=== PATIENT | male | born 1950 | race American Indian/Alaskan Native ===

== ENCOUNTER 2017-09-18 10:49 | Day surgery (SDC) | payer OTHER ==
[~2017-09-18] VITALS: Ht 177.8 cm; Wt 99.2 kg
[~2017-09-18 10:49] MED LIST: ALBU90OI INH; AMLO5 PO; ASPI325 PO; Aspirin EC325 MG PO; BISA10S PR; BISA5EC PO; BUDE6HFA INH; CEPH250A PO; CETI5 PO; CHOL10002 PO; CITA20 PO; CLIN300 PO; CLOBET30L TOP; CLON.5 PO; COUGHTAB200 MG PO; CREON DR 24,001 EACH; CREON DR 24,001 EACH PO; CYAN100T2; Clotrim Antifun15 GM TP; DOCU100 PO; Dandruff 1% Sh325 ML TP; EAC RC; EPIN.3I IM; ERGO50000 PO; FURO20 PO; Furosemide40 MG PO; GENPREOPSU PO; GENT.3OPSA OD; GUAI200 PO; GUAI600T33 PO; HYDMOR2 PO; Humulin N100 UNIT/1 SC; Humulin R500 UNIT/1 SC; IBUP800 PO; INSUL100I SC; Imitrex50 MG JT; KETO120T TOP; Klor-Con 1010 MEQ; LAVAP17G; LAVAP17G PO; LEVO750 PO; LISHYD2012 PO; LISI20 PO; Lantus100 UNIT/1 SC; Lisinopril2.5 MG PO; METF850 PO; METH10 PO; METO25ER PO; METO50ER PO; Metoprolol Succ25 MG PO; NAPR500 PO; Norco 10-325 T1 EACH; OMEP20ER PO; ONDA4ODT MM; OXYACE5T PO; OXYC5 PO; PRED20 PO; PRED5 PO; PROM25 PO; ROPI1 PO; ROSU10TA PO; ROXICODONE5 MG PO; SELRX180 ML TP; SENN187; SENN187 PO; SULTRISS PO; TERA5; TERA5 PO; TESTOSTERONE INJ IM; TIOT18; TIOT18 IH; TIZANIDINE HCL4 MG PO; Tylenol325 MG; Ventolin Soln3 ML; ZYRTEC10 M1 PO; Zanaflex4 M1 PO; Zanaflex4 MG PO
[2018-05-31] MEDS ORDERED: ZESTORETIC 20-121 EA (15:55)
[2018-05-31] MEDS ORDERED: PREG25 PO (15:56)
[2018-05-31] MEDS ORDERED: HYDR1TAB94 PO (16:38)
== END 2017-09-18 13:07 | disposition home or self-care (01) ==
LOC: ORSCSDS 10:49
PROVIDERS: Surgery
PROC: 0DBK8ZX Excision of Ascending Colon, Via Natural or Artificial Opening Endoscopic, Diagnostic (ICD-10-PCS; principal; 2017-09-18 11:45)
PROC: 0DB48ZX Excision of Esophagogastric Junction, Via Natural or Artificial Opening Endoscopic, Diagnostic (ICD-10-PCS; principal; 2017-09-18 11:45)
PROC: 0DB68ZX Excision of Stomach, Via Natural or Artificial Opening Endoscopic, Diagnostic (ICD-10-PCS; principal; 2017-09-18 11:45)
PROC: 0DBN8ZX Excision of Sigmoid Colon, Via Natural or Artificial Opening Endoscopic, Diagnostic (ICD-10-PCS; principal; 2017-09-18 11:45)
PROC: 0DBL8ZX Excision of Transverse Colon, Via Natural or Artificial Opening Endoscopic, Diagnostic (ICD-10-PCS; principal; 2017-09-18 11:45)
DX: K21.9 Gastro-esophageal reflux disease without esophagitis (principal); K22.70 Barrett's esophagus without dysplasia; K29.50 Unspecified chronic gastritis without bleeding; D12.2 Benign neoplasm of ascending colon; D12.3 Benign neoplasm of transverse colon; D12.5 Benign neoplasm of sigmoid colon; K64.8 Other hemorrhoids; Z86.010 Personal history of colon polyps; Z12.11 Encounter for screening for malignant neoplasm of colon; E11.9 Type 2 diabetes mellitus without complications; I10 Essential (primary) hypertension; B19.20 Unspecified viral hepatitis C without hepatic coma; I73.9 Peripheral vascular disease, unspecified; E78.1 Pure hyperglyceridemia; F17.200 Nicotine dependence, unspecified, uncomplicated; Z79.4 Long term (current) use of insulin; Z79.899 Other long term (current) drug therapy
CPT/HCPCS: 82947; 88305; 88342; J7120

== ENCOUNTER 2019-03-21 16:05 | Emergency (ER) | payer OTHER ==
[~2019-03-21] VITALS: Ht 175.3 cm; Wt 111.1 kg
[~2019-03-21 16:05] MED LIST changes: +HYDR1TAB94 PO; +PREG25 PO; +ZESTORETIC 20-121 EA
[2019-03-21 16:36] LABS: BASOPHILS ABSOLUTE AUTO 0.07 K/mm3 (0.00-0.23); BASOPHILS PERCENT AUTO 1 % (0-2); EOSINOPHILS ABSOLUTE AUTO 0.23 K/mm3 (0.00-0.68); EOSINOPHILS PERCENT AUTO 2 % (0-6); Hematocrit 35.8 % (37.0-53.0); Hemoglobin 12.3 g/dL (13.5-17.5); IMMATURE GRAN ABSOLUTE AUTO 0.05 K/mm3 (0.00-0.10); IMMATURE GRAN PERCENT AUTO 0 % (0-1); LYMPHOCYTES ABSOLUTE AUTO 1.12 K/mm3 (0.84-5.20); LYMPHOCYTES PERCENT AUTO 8 % (21-46); MONOCYTES PERCENT AUTO 6 % (4-13); Mean Corpuscular HGB 29.7 pg (26.0-34.0); Mean Corpuscular HGB Conc 34.4 g/dL (31.5-36.5); Mean Corpuscular Volume 87 fL (80-100); Mean Platelet Volume 9.2 fL (9.1-12.4); NEUTROPHILS ABSOLUTE AUTO 11.43 K/mm3 (1.96-9.15); NEUTROPHILS PERCENT AUTO 83 % (41-73); Platelet Count 267 K/mm3 (150-400); RDW Coefficient Variation 12.5 % (11.7-14.2); RDW Standard Deviation 39.3 fL (35.1-46.3); Red Blood Cell Count 4.14 M/mm3 (4.30-5.90)
[2019-03-21 17:02] LABS: Albumin, Blood 2.8 g/dL (3.4-5.0); Albumin/Globulin Ratio 0.5 (0.8-1.8); Bilirubin, Total 0.4 mg/dL (0.1-1.0); Bun/Creatinine Ratio 14.8 (12.0-20.0); Creatinine, Blood 1.62 mg/dL (0.60-1.20); Globulin, Blood 5.3 g/dL (2.2-4.0); Potassium, Blood 3.9 mmol/L (3.5-5.5); Total Protein, Blood 8.1 g/dL (6.4-8.2)
[2019-03-21 17:43] LABS: Source, Urine Clean Catch
[2019-03-21 17:47] LABS: Bilirubin, Urine Neg (Neg); Blood, Urine 3+ (Neg); Glucose Qualitative, Urine Neg (Neg); Ketones, Urine Neg (Neg); Leukocyte Esterase, Urine Neg (Neg); Nitrite, Urine Neg (Neg); Protein, Urine 4+ (Neg); Specific Gravity, Urine 1.015 (1.003-1.022); Urobilinogen, Urine NORM (Normal)
[2019-03-21 17:58] LABS: Appearance, Urine Clear (Clear); Color, Urine Yellow (P-Yellow)
[2019-03-21 17:59] LABS: Bacteria Few /hpf; Squamous Epithelial Cells Rare /hpf (Few); Transitional Epithelial Cells Few /hpf (0-Rare)
[2019-03-21] MEDS ORDERED: Lipitor20 MG PO (20:03)
[2019-03-21] MEDS ORDERED: Aspirin EC81 MG PO (20:03)
[2019-03-21] MEDS ORDERED: ALBU3IS INH (20:03)
[2019-03-21] MEDS ORDERED: CREON DR 24,001 EACH PO (20:04)
[2019-03-21] MEDS ORDERED: THERA-D2000 UNIT PO (20:04)
[2019-03-21] MEDS ORDERED: CHLO25B PO (20:04)
[2019-03-21] MEDS ORDERED: CLOP75 PO (20:04)
[2019-03-21] MEDS ORDERED: Novolog100 UNIT/2 SC (20:05)
[2019-03-21] MEDS ORDERED: OMEP20ER PO (20:06)
[2019-03-21] MEDS ORDERED: MAGNESIUM400 M1 PO (20:06)
[2019-03-21] MEDS ORDERED: ONDA4ODT SL (20:06)
[2019-03-21] MEDS ORDERED: PREG100 PO (20:07)
[2019-03-21] MEDS ORDERED: Imitrex50 MG PO (20:07)
[2019-03-21] MEDS ORDERED: Roxicodone5 MG PO (21:56)
[2019-03-21] MEDS ORDERED: CEPH500 PO (21:56)
== END 2019-03-21 22:12 | disposition home or self-care (01) ==
LOC: ER 16:05
PROVIDERS: Physician Assistant
DX: T83.593A Infection and inflammatory reaction due to other urinary stents, initial encounter (principal); R10.31 Right lower quadrant pain; N50.811 Right testicular pain; R30.0 Dysuria; R33.9 Retention of urine, unspecified; Z88.0 Allergy status to penicillin; Z91.030 Bee allergy status; Z88.8 Allergy status to other drugs, medicaments and biological substances; Z79.899 Other long term (current) drug therapy; Z79.4 Long term (current) use of insulin; E11.40 Type 2 diabetes mellitus with diabetic neuropathy, unspecified; J44.9 Chronic obstructive pulmonary disease, unspecified; F17.210 Nicotine dependence, cigarettes, uncomplicated
CPT/HCPCS: 36415; 74176; 76870; 80053; 81001; 85025; 93926; 93971; 96361; 96374; 96375; 99284-25; A9270; J1170; J2405; J7030

== ENCOUNTER 2019-03-26 09:57 | Inpatient (IN) | payer OTHER ==
[~2019-03-26] VITALS: Ht 177.8 cm; Wt 109.5 kg
[~2019-03-26 09:57] MED LIST changes: +ALBU3IS INH; +Aspirin EC81 MG PO; +CEPH500 PO; +CHLO25B PO; +CLOP75 PO; +Imitrex50 MG PO; +Lipitor20 MG PO; +MAGNESIUM400 M1 PO; +Novolog100 UNIT/2 SC; +ONDA4ODT SL; +PREG100 PO; +Roxicodone5 MG PO; +THERA-D2000 UNIT PO
[2019-03-26 10:19] LABS: BASOPHILS ABSOLUTE AUTO 0.06 K/mm3 (0.00-0.23); BASOPHILS PERCENT AUTO 0 % (0-2); EOSINOPHILS ABSOLUTE AUTO 0.19 K/mm3 (0.00-0.68); EOSINOPHILS PERCENT AUTO 1 % (0-6); Hematocrit 32.3 % (37.0-53.0); Hemoglobin 11.1 g/dL (13.5-17.5); IMMATURE GRAN ABSOLUTE AUTO 0.07 K/mm3 (0.00-0.10); IMMATURE GRAN PERCENT AUTO 0 % (0-1); LYMPHOCYTES ABSOLUTE AUTO 0.71 K/mm3 (0.84-5.20); LYMPHOCYTES PERCENT AUTO 4 % (21-46); MONOCYTES ABSOLUTE AUTO 0.74 K/mm3 (0.16-1.47); MONOCYTES PERCENT AUTO 5 % (4-13); Mean Corpuscular HGB 29.5 pg (26.0-34.0); Mean Corpuscular HGB Conc 34.4 g/dL (31.5-36.5); Mean Corpuscular Volume 86 fL (80-100); Mean Platelet Volume 9.3 fL (9.1-12.4); NEUTROPHILS ABSOLUTE AUTO 14.67 K/mm3 (1.96-9.15); NEUTROPHILS PERCENT AUTO 89 % (41-73); Platelet Count 250 K/mm3 (150-400); RDW Coefficient Variation 12.4 % (11.7-14.2); RDW Standard Deviation 38.6 fL (35.1-46.3); Red Blood Cell Count 3.76 M/mm3 (4.30-5.90); White Blood Cell Count 16.44 K/mm3 (4.00-11.30)
[2019-03-26 10:39] LABS: Albumin, Blood 2.6 g/dL (3.4-5.0); Albumin/Globulin Ratio 0.5 (0.8-1.8); Bilirubin, Total 0.5 mg/dL (0.1-1.0); Calcium, Blood 8.9 mg/dL (8.5-10.1); Creatinine, Blood 2.18 mg/dL (0.60-1.20); Globulin, Blood 5.4 g/dL (2.2-4.0); Potassium, Blood 3.7 mmol/L (3.5-5.5)
[2019-03-26 11:31] LABS: Source, Urine Clean Catch
[2019-03-26 11:41] LABS: Appearance, Urine Clear (Clear); Bilirubin, Urine Neg (Neg); Blood, Urine 3+ (Neg); Color, Urine Yellow (P-Yellow); Glucose Qualitative, Urine Neg (Neg); Ketones, Urine Neg (Neg); Leukocyte Esterase, Urine Neg (Neg); Nitrite, Urine Neg (Neg); Protein, Urine 4+ (Neg); Urobilinogen, Urine NORM (Normal)
[2019-03-26] MEDS ORDERED: STIOLTO RESPIMAT4 GM INH (12:04)
[2019-03-26] MEDS ORDERED: TAMS.4ER PO (12:05)
[2019-03-26 12:15] LABS: Bacteria Few /hpf; Squamous Epithelial Cells Few /hpf (Few)
[2019-03-26] MEDS ORDERED: ALBU2.5V5 NEB (12:40)
[2019-03-26] MEDS ORDERED: BASAGLAR K100 UNIT/1 SC (12:46)
[2019-03-26] MEDS ORDERED: Amlodipine Besy10 MG PO (12:46)
[2019-03-26] MEDS ORDERED: TIZA4 PO (12:47)
[2019-03-26] MEDS ORDERED: SENN187 PO (12:47)
[2019-03-26] MEDS ORDERED: Triamcinolone A15 G3 TOP (12:48)
[2019-03-26] MEDS ORDERED: Glucose4 GM PO (12:49)
[2019-03-26] MEDS ORDERED: EPINEPHRIN0.3 MG/0.3 IM (12:49)
--- NOTE | 2019-03-26 18:02 | NUR ---
ALERT. ORIENTED. STANDBY ASSIST TO BATHROOM. UNLABORED RESPIRATIONS. MEDICATED FOR BACK PAIN POST FALL AT HOME. DRESSING TO LEFT FOOT CHANGED WITH PICTURE TAKEN. PLEASANT. COOPERATIVE. IV INFUSING. TELE ON AND PER TECH SR IN 'S. BED IN LOW PSOITION. IS ABLE TO MAKE NEEDS KNOWN. WCTM.
[2019-03-27 05:36] LABS: BASOPHILS ABSOLUTE AUTO 0.05 K/mm3 (0.00-0.23); BASOPHILS PERCENT AUTO 0 % (0-2); EOSINOPHILS ABSOLUTE AUTO 0.29 K/mm3 (0.00-0.68); EOSINOPHILS PERCENT AUTO 2 % (0-6); Hematocrit 32.3 % (37.0-53.0); Hemoglobin 10.8 g/dL (13.5-17.5); IMMATURE GRAN ABSOLUTE AUTO 0.05 K/mm3 (0.00-0.10); IMMATURE GRAN PERCENT AUTO 0 % (0-1); LYMPHOCYTES ABSOLUTE AUTO 1.05 K/mm3 (0.84-5.20); LYMPHOCYTES PERCENT AUTO 8 % (21-46); MONOCYTES PERCENT AUTO 7 % (4-13); Mean Corpuscular HGB Conc 33.4 g/dL (31.5-36.5); Mean Corpuscular Volume 87 fL (80-100); Mean Platelet Volume 9.6 fL (9.1-12.4); NEUTROPHILS PERCENT AUTO 83 % (41-73); Platelet Count 215 K/mm3 (150-400); RDW Coefficient Variation 12.7 % (11.7-14.2); RDW Standard Deviation 40.1 fL (35.1-46.3); Red Blood Cell Count 3.72 M/mm3 (4.30-5.90); White Blood Cell Count 13.54 K/mm3 (4.00-11.30)
[2019-03-27 05:55] LABS: Albumin, Blood 2.1 g/dL (3.4-5.0); Albumin/Globulin Ratio 0.4 (0.8-1.8); Bilirubin, Total 0.4 mg/dL (0.1-1.0); Calcium, Blood 8.6 mg/dL (8.5-10.1); Potassium, Blood 3.5 mmol/L (3.5-5.5); Total Protein, Blood 7.1 g/dL (6.4-8.2)
--- NOTE | 2019-03-27 06:16 | NUR ---
SHIFT SUMMARY PATIENT COMPLAINTS OF SEVERE TAILBONE PAIN THROUGHOUT THE NIGHT. PATIENT SPO2 DOWN TO 88-90% ON RA WHILE SLEEPING. CPAP IN ROOM SET UP BY RT BUT PATIENT OBSERVED NOT WEARING MASK MULTIPLE TIMES DURING SHIFT. PATIENT CONVERTED FROM NSR TO A.FIB AT APPROX 0600. PATIENT HAS HISTORY OF AFIB AND HAD NO ASSOCIATED SYMPTOMS.
--- NOTE | 2019-03-27 11:59 | NUR ---
NOTIFIED NO IV ASSESS AT THIS TIME AND PATIENT C/O BACK PAIN FROM WHEN HE FELL AT HOME. MD TO ORDER MEDS. ACUTE CARE PHYSICAL THERAPIST TRIED W/ULRASOUND TO GET IV AND NOT ABLE TO. ARMORED CABLE MACHINE OPERATOR WILL TRY WHEN SHE COMES IN.
--- NOTE | 2019-03-27 14:27 | NUR ---
ASKED IF SHE WOULD LIKE SPUTUM CULTURE SENT. ORDERED.
--- NOTE | 2019-03-27 16:39 | NUR ---
PATIENT CBG HIGH PRE LUNCH AND DINNER DUE TO PATIENT GIVEN ORANGE JUICE. WCTM.
--- NOTE | 2019-03-27 17:03 | NUR ---
NOTIFIED OF CBG'S. LAST TWO CBG'S PATIENT HAD O.J. PRIOR. MD WILL DECIDE IF SLIDING SCALE NEEDED.
--- NOTE | 2019-03-27 18:20 | NUR ---
ALERT. ORIENTED. POWERGLIDE RT UPPER ARM. AWARE OF BLOOD SUGARS WITH SLIDING SCALE ORDERED. AMBULATORY WITH WALKER IN ROOM. STS HAS SOME HARD TIME WITH EMPTYING HIS BLADDER WITH THIS RN TELLING HIM WE COULD PUT A CATHETER IN. AT THIS TIME PATIENT DOES NOT WANT ONE, SO DAVENPORT NOT REQUESTED FROM MD. INTERMITTENT FEVER CONTROLLED BY TYLENOL.UNLABORED BREATHING. DISCUSS DEEP BREATHING AND COUGHING W/PATIENT STATING "WILL DO THEM LATER."PLEASANT. CONVERTED BACK TO SR AROUND NOON. WCTM
--- NOTE | 2019-03-28 04:15 | NUR ---
SHIFT SUMMARY- NO ACUTE EVENTS OVERNIGHT. PT. C/O BACK PAIN, MEDS GIVEN PER EMAR. PT. TOLERATED WELL. PT. ASLEEP T/O THE NIGHT, NO APPARENT DISTRESS NOTED. CONTINUOUS PULSE OXIMETRY IN PLACE. SATS WNL. CPAP SET UP IN THE ROOM. PT. OBSERVED NOT WEARING MASK T/O THE NIGHT. CALL LIGHT WITHIN REACH AND SIDE RAILS UP X2. WILL CONT TO MONITOR.
--- NOTE | 2019-03-28 06:40 | NUR ---
PERFORMED DRESSING CHANGE TO THE RT LATERAL FOOT. WOUND C/D/I, COVERED WITH MEPILEX. PT. TOLERATED WELL.
[2019-03-28 08:03] LABS: BASOPHILS ABSOLUTE AUTO 0.06 K/mm3 (0.00-0.23); BASOPHILS PERCENT AUTO 1 % (0-2); EOSINOPHILS ABSOLUTE AUTO 0.38 K/mm3 (0.00-0.68); EOSINOPHILS PERCENT AUTO 4 % (0-6); Hematocrit 32.2 % (37.0-53.0); Hemoglobin 10.6 g/dL (13.5-17.5); IMMATURE GRAN ABSOLUTE AUTO 0.04 K/mm3 (0.00-0.10); IMMATURE GRAN PERCENT AUTO 0 % (0-1); LYMPHOCYTES ABSOLUTE AUTO 0.71 K/mm3 (0.84-5.20); LYMPHOCYTES PERCENT AUTO 7 % (21-46); MONOCYTES ABSOLUTE AUTO 0.65 K/mm3 (0.16-1.47); MONOCYTES PERCENT AUTO 6 % (4-13); Mean Corpuscular HGB 28.9 pg (26.0-34.0); Mean Corpuscular HGB Conc 32.9 g/dL (31.5-36.5); Mean Corpuscular Volume 88 fL (80-100); Mean Platelet Volume 9.3 fL (9.1-12.4); NEUTROPHILS ABSOLUTE AUTO 9.03 K/mm3 (1.96-9.15); NEUTROPHILS PERCENT AUTO 83 % (41-73); Platelet Count 237 K/mm3 (150-400); RDW Coefficient Variation 12.3 % (11.7-14.2); RDW Standard Deviation 39.8 fL (35.1-46.3); Red Blood Cell Count 3.67 M/mm3 (4.30-5.90); White Blood Cell Count 10.87 K/mm3 (4.00-11.30)
[2019-03-28] MEDS ORDERED: CEPH500 PO (08:23)
[2019-03-28 08:31] LABS: Bun/Creatinine Ratio 12.2 (12.0-20.0); Calcium, Blood 8.5 mg/dL (8.5-10.1); Creatinine, Blood 1.97 mg/dL (0.60-1.20); Potassium, Blood 3.8 mmol/L (3.5-5.5)
--- NOTE | 2019-03-28 16:48 | NUR ---
Pal Spiritual Care inital note: Mr. Hurley was alone in room and irritable. He declined pastoral care at this time.
--- NOTE | 2019-03-28 17:07 | NUR ---
SHIFT SUMMARY PT HAS STRONG PRODUCTIVE COUGH. AFEBRILE THIS SHIFT. BLOOD SUGARS REMAIN ELEVATED. UP IND IN ROOM W/ FWW. AT BEDSIDE THIS AFTERNOON, ATTENETIVE AND LOVING.
--- NOTE | 2019-03-29 04:44 | NUR ---
SHIFT SUMMARY NO ACUTE CHANGES TONIGHT. PT TREATED TWICE FOR LOW BACK PAIN c 50 MCG IV FENTANYL. PT ALSO C/O OF GUZMAN, RELIEVED BY 625 MG PO TYLENOL. TELE IN PLACE, NSR @ 70 BPM PER HYDROELECTRIC PLANT TECHNICIAN. PT REPORTS BASELINE NEUROPATHY TO BLE. RESP E/U ON RA, REFUSES TO WEAR CPAP TONIGHT. LS DIM T/O. 2+ EDEMA TO BLE. CBG 263 TONIGHT, ADMINISTERED 70 UNITS LANTUS PER EMAR. PG TO RUE PATENT AND DRAWING BLOOD, AM LABS SENT, CAPS CHANGED. VSS. WILL CONT TO MONITOR AND PROVIDE CARE UNTIL PRESUMED BY ONCOMING RN.
[2019-03-29 04:54] LABS: Albumin, Blood 1.9 g/dL (3.4-5.0); Anion Gap 9 mmol/L (6-16); Blood Urea Nitrogen 28 mg/dL (8-24); Bun/Creatinine Ratio 14.7 (12.0-20.0); CO2, Blood 25 mmol/L (21-32); Calcium, Blood 7.5 mg/dL (8.5-10.1); Chloride, Blood 104 mmol/L (98-108); Creatinine, Blood 1.91 mg/dL (0.60-1.20); Glomerular Filtration Rate 38 (60-); Glucose, Blood 179 mg/dL (70-99); Phosphorus, Blood 2.7 mg/dL (2.5-4.9); Potassium, Blood 3.4 mmol/L (3.5-5.5); Sodium, Blood 138 mmol/L (136-145)
[2019-03-29] MEDS ORDERED: ACET325 PO (13:14)
[2019-03-29] MEDS ORDERED: Florastor250 MG PO (13:15)
[2019-03-29] MEDS ORDERED: LEVFLO500 PO (13:16)
[2019-03-29] MEDS ORDERED: HYDR1TAB94 PO (15:42)
--- NOTE | 2019-03-29 16:29 | NUR ---
DISCHARGE SUMMARY BALDEMAR LEFT WITH VIA WC TO GO HOME. [facility]SD[facility]. SPUTUM BLOOD TINGED, DOCTOR JOHN AWARE. PAIN IN BACK, HELPED BY IV FENTANYL. GIVEN WRITTEN RX FOR NORCO. [facility]. POWERGLIDE TAKEN OUT. TELE DC'D. INDEPENDENT TO BR WITH WALKER. TOOK MEDS PRESCRIBED.
== END 2019-03-29 16:30 | disposition home or self-care (01) | DRG 871 ==
LOC: ER 09:57 → MEDS 12:16 → ENPENDDIS 03-29 11:09 → MEDS 03-29 16:30
PROVIDERS: Emergency Medicine; ADMIT Internal Medicine
DX: A41.9 Sepsis, unspecified organism (principal); J18.1 Lobar pneumonia, unspecified organism; K86.3 Pseudocyst of pancreas; R65.20 Severe sepsis without septic shock; M54.5 Low back pain; J44.9 Chronic obstructive pulmonary disease, unspecified; I48.0 Paroxysmal atrial fibrillation; I65.01 Occlusion and stenosis of right vertebral artery; N26.1 Atrophy of kidney (terminal); N50.811 Right testicular pain; R10.9 Unspecified abdominal pain; M51.37 Other intervertebral disc degeneration, lumbosacral region; M35.3 Polymyalgia rheumatica; E11.40 Type 2 diabetes mellitus with diabetic neuropathy, unspecified; L40.9 Psoriasis, unspecified; Z88.0 Allergy status to penicillin; Z88.8 Allergy status to other drugs, medicaments and biological substances; Z91.038 Other insect allergy status; Z87.891 Personal history of nicotine dependence; Z79.02 Long term (current) use of antithrombotics/antiplatelets; Z79.82 Long term (current) use of aspirin; Z79.4 Long term (current) use of insulin; Z79.899 Other long term (current) drug therapy
CPT/HCPCS: 36415; 71046; 72100; 74176; 80048; 80053; 80069; 81001; 82947; 83605; 83690; 84145; 85025; 87040; 87070; 87205; 93005; 93010; 94640; 94660; 94760; 94762; 96361; 96365; 96366; 96375; 97161; 97530; 99285-25; A9270; J1956; J3010; J7030; J7050; J7120

== ENCOUNTER 2019-06-03 15:33 | Emergency (ER) | payer OTHER ==
[~2019-06-03] VITALS: Ht 177.8 cm; Wt 99.8 kg
[~2019-06-03 15:33] MED LIST changes: +ACET325 PO; +ALBU2.5V5 NEB; +Amlodipine Besy10 MG PO; +BASAGLAR K100 UNIT/1 SC; +EPINEPHRIN0.3 MG/0.3 IM; +Florastor250 MG PO; +Glucose4 GM PO; +LEVFLO500 PO; +STIOLTO RESPIMAT4 GM INH; +TAMS.4ER PO; +TIZA4 PO; +Triamcinolone A15 G3 TOP
[2019-06-03] MEDS ORDERED: Roxicodone5 MG PO (17:12)
== END 2019-06-03 17:28 | disposition home or self-care (01) ==
LOC: ER 15:33
DX: S52.502A Unspecified fracture of the lower end of left radius, initial encounter for closed fracture (principal); S52.615A Nondisplaced fracture of left ulna styloid process, initial encounter for closed fracture; S81.012A Laceration without foreign body, left knee, initial encounter; S61.512A Laceration without foreign body of left wrist, initial encounter; S00.31XA Abrasion of nose, initial encounter; J44.1 Chronic obstructive pulmonary disease with (acute) exacerbation; E11.9 Type 2 diabetes mellitus without complications; Z87.891 Personal history of nicotine dependence; V49.50XA Passenger injured in collision with unspecified motor vehicles in traffic accident, initial encounter
CPT/HCPCS: 12004; 29105; 73110; 73562-LT; 90471; 90714; 94640; 96372-59; 99284-25; J1170

== ENCOUNTER 2019-06-12 12:07 | Inpatient (IN) | payer OTHER ==
[~2019-06-12] VITALS: Ht 175.3 cm; Wt 112.7 kg
[~2019-06-12 12:07] MED LIST changes: +ALBU2.5V5 INH; -ALBU2.5V5 NEB; +NOVOLOG FL100 UNIT/1 SC; -Novolog100 UNIT/2 SC; +ONDA4ODT PO; -ONDA4ODT SL
[2019-06-12 12:51] LABS: BASOPHILS ABSOLUTE AUTO 0.14 K/mm3 (0.00-0.23); BASOPHILS PERCENT AUTO 1 % (0-2); EOSINOPHILS ABSOLUTE AUTO 0.14 K/mm3 (0.00-0.68); EOSINOPHILS PERCENT AUTO 1 % (0-6); Hematocrit 30.8 % (37.0-53.0); Hemoglobin 10.3 g/dL (13.5-17.5); IMMATURE GRAN ABSOLUTE AUTO 0.12 K/mm3 (0.00-0.10); IMMATURE GRAN PERCENT AUTO 1 % (0-1); LYMPHOCYTES PERCENT AUTO 5 % (21-46); MONOCYTES ABSOLUTE AUTO 1.04 K/mm3 (0.16-1.47); MONOCYTES PERCENT AUTO 5 % (4-13); Mean Corpuscular HGB 29.1 pg (26.0-34.0); Mean Corpuscular HGB Conc 33.4 g/dL (31.5-36.5); Mean Corpuscular Volume 87 fL (80-100); Mean Platelet Volume 9.3 fL (9.1-12.4); NEUTROPHILS ABSOLUTE AUTO 17.68 K/mm3 (1.96-9.15); NEUTROPHILS PERCENT AUTO 88 % (41-73); Platelet Count 355 K/mm3 (150-400); RDW Coefficient Variation 13.9 % (11.7-14.2); RDW Standard Deviation 43.2 fL (35.1-46.3); Red Blood Cell Count 3.54 M/mm3 (4.30-5.90); White Blood Cell Count 20.12 K/mm3 (4.00-11.30)
[2019-06-12 14:08] LABS: Albumin/Globulin Ratio 0.5 (0.8-1.8); Bilirubin, Total 0.5 mg/dL (0.1-1.0); Bun/Creatinine Ratio 15.2 (12.0-20.0); Calcium, Blood 7.4 mg/dL (8.5-10.1); Creatinine, Blood 2.5 mg/dL (0.60-1.20); Globulin, Blood 4.4 g/dL (2.2-4.0); Potassium, Blood 3.7 mmol/L (3.5-5.5); Total Protein, Blood 6.4 g/dL (6.4-8.2); Troponin I 0.523 ng/mL (0.000-0.040)
[2019-06-12 14:59] LABS: Phosphorus, Blood 5.7 mg/dL (2.5-4.9)
[2019-06-12 15:07] LABS: PCO2 Arterial 36.3 mmHg (35-45); PO2 Arterial 63.7 mmHg (80-100); pH Blood Arterial 7.48 (7.35-7.45)
[2019-06-12] MEDS ORDERED: METO25 PO (15:47)
[2019-06-12] MEDS ORDERED: CHLO25B PO (15:48)
--- NOTE | 2019-06-12 16:45 | NUR ---
PATIENT ARRIVED TO ROOM ICU 11 VIA STRETCHER FROM THE ER AFTER REPORT WAS CALLED TO THIS RN FROM BRENDON BLACK, PATIENT MOVED TO BED VIA SLIDER, PATIENT IS ON BIPAP SETTINGS ARE 12/6/FiO2 45%, O2 SATURATION AT 92 %, PATIETN EXTREMELY DIAPHORETIC AND RESTLESS BLOOD GLUCOSE CHECKED RESULTED IN 145, NO ADEQUATE IV ACCESS IDENTIFIED, DR. DE CONSULTED BY LEYLA MELO, DR. DE PLACED CENTRAL LINE INTO RIGHT IJ, PATIENT TOLERATED WELL, DAVENPORT CATHETER WAS PLACED AND UA SENT, CHEST XRAY TO CONFIRM LINE, DR. DE GAVE APPROVAL TO USE CENTRAL LINE, DR. MO CONSULTED FOR CARDIOLOGY BY LEYLA MELO, 12 LEAD EKG DONE AND PATIENT IN SINUS TACHYCARDIA AT THIS TIME, SBP'S VARY FROM 70'S TO 90'S, LEVOPHED ORDERED BY DR. MO, DR. DE WROTE NURSE NOTIFY TO KEEP SBP AT > 130, DR. MO GAVE ORDER TO NOT START DIURETICS UNTIL SBP AT 130, DR. WHITE CONSULTED WELL, AND WAS CALLED BY CHARISSA BOWEN, ASSOCIATE DESIGNER, PATIENT IS ALERT AND ORIENTED, LUNG SOUNDS ARE TIGHT WITH WHEEZES, SINUS TACHY WITH HR IN L;OW 100'S, SBP'S BETWEEN 70'S AND 90'S, LEVOPHED STARTED AT 2, CVP DONE RESULTED IN 15, FUSING MACHINE TENDER IN ROOM TO PERFORM TEST, FAMILY IN ICU WAITING ROOM WAS UPDATED ABOUT PROCEDURES AND CONDITION, ALBUMIN HUNG, LABS DRAWN, PATIENT TOLERATED WELL, ASKS QUESTIONS ABOUT HIS CONDITION, MINIMAL URINE OUTPUT OF YET, PATIENT HAS SUTURES ON LEFT KNEE CAP AND BRUISE, ALSO HAS LARGE BRUISE ON RIGHT KNEE AND XRAY WAS DONE D/T PATIENT C/O PAIN IN KNEE, CALL LIGHT WAS GIVEN AND EXPLAINED, PATIENT VERBALIZED UNDERSTANDING, CALL LIGHT IN REACH, WILL CONTINUE TO MONITOR AND GIVE REPORT TO ONCOMING TUBER OPERATOR.
[2019-06-12 18:21] LABS: Source, Urine Catheter
[2019-06-12 18:30] LABS: Bilirubin, Urine Neg (Neg); Blood, Urine 1+ (Neg); Glucose Qualitative, Urine Neg (Neg); Ketones, Urine 1+ (Neg); Leukocyte Esterase, Urine Neg (Neg); Nitrite, Urine Neg (Neg); Protein, Urine 4+ (Neg); Specific Gravity, Urine 1.025 (1.003-1.022); Urobilinogen, Urine 1+ (Normal)
[2019-06-12 18:31] LABS: Appearance, Urine Hazy (Clear); Color, Urine Yellow (P-Yellow)
[2019-06-12 18:39] LABS: Amorphous Mod (0-Heavy); Bacteria Few /hpf; Red Blood Cells, Urine 0-2 /hpf (0-2); Squamous Epithelial Cells Rare /hpf (Few); White Blood Cells, Urine 0-2 /hpf (0-5)
--- NOTE | 2019-06-12 18:47 | NUR ---
Echocardiogram completed.
--- NOTE | 2019-06-12 22:59 | NUR ---
INITIAL ASSESSMENT: PT ALERT AND ORIENTED. AT BEDSIDE. LUNG SOUNDS WHEEZY. ON BIPAP WITH RATE OF 12 AND 02 AT 40%. SATTING >90%. HEART RHYTHM IS ST WITH OCC PVCS. SBP 120S HR IN 100S. TEMP DAVENPORT IN PLACE DRAINING SMALL AMOUNTS OF URINE. BRUISING TO BILAT UPPER EXTREMITIES AND BILAT KNEES. L KNEE HAS SUTURES IN PLACE. RIJ LINE IN PLACE INFUSING HEPARIN AT 13 UNITS AND LEVOPHED AT 10. CALL LIGHT WITHIN REACH AND BED IN LOWER POSITION.
[2019-06-13 03:51] LABS: BASOPHILS ABSOLUTE AUTO 0.01 K/mm3 (0.00-0.23); BASOPHILS PERCENT AUTO 0 % (0-2); EOSINOPHILS PERCENT AUTO 0 % (0-6); Hematocrit 27.4 % (37.0-53.0); Hemoglobin 9.1 g/dL (13.5-17.5); IMMATURE GRAN ABSOLUTE AUTO 0.05 K/mm3 (0.00-0.10); IMMATURE GRAN PERCENT AUTO 1 % (0-1); LYMPHOCYTES ABSOLUTE AUTO 0.54 K/mm3 (0.84-5.20); LYMPHOCYTES PERCENT AUTO 5 % (21-46); MONOCYTES ABSOLUTE AUTO 0.16 K/mm3 (0.16-1.47); MONOCYTES PERCENT AUTO 2 % (4-13); Mean Corpuscular HGB 29.2 pg (26.0-34.0); Mean Corpuscular HGB Conc 33.2 g/dL (31.5-36.5); Mean Corpuscular Volume 88 fL (80-100); Mean Platelet Volume 9.6 fL (9.1-12.4); NEUTROPHILS ABSOLUTE AUTO 9.74 K/mm3 (1.96-9.15); NEUTROPHILS PERCENT AUTO 93 % (41-73); Platelet Count 310 K/mm3 (150-400); RDW Coefficient Variation 14.1 % (11.7-14.2); RDW Standard Deviation 44.8 fL (35.1-46.3); Red Blood Cell Count 3.12 M/mm3 (4.30-5.90)
[2019-06-13 04:09] LABS: Albumin, Blood 2.2 g/dL (3.4-5.0); Albumin/Globulin Ratio 0.5 (0.8-1.8); Bilirubin, Total 0.5 mg/dL (0.1-1.0); Bun/Creatinine Ratio 16.1 (12.0-20.0); Calcium, Blood 8.3 mg/dL (8.5-10.1); Creatinine, Blood 3.16 mg/dL (0.60-1.20); Globulin, Blood 4.7 g/dL (2.2-4.0); Magnesium, Blood 2.3 mg/dL (1.6-2.4); Phosphorus, Blood 5.9 mg/dL (2.5-4.9); Potassium, Blood 3.6 mmol/L (3.5-5.5); Total Protein, Blood 6.9 g/dL (6.4-8.2)
[2019-06-13 05:11] LABS: PO2 Arterial 59.9 mmHg (80-100); pH Blood Arterial 7.49 (7.35-7.45)
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
--- NOTE | 2019-06-13 07:35 | NUR ---
DR. WHITE AT BEDSIDE. NO NEW ORDERS AT THIS TIME.
--- NOTE | 2019-06-13 09:30 | NUR ---
DR. HARKINS AT BEDSIDE FOR ASSESSMENT. CHANGED AZIHROMYCIN TO PO TO DECREASE FLUIDS, ORDERED CHEM BG'S TO BE [id number]. ASKED TO BE NOTIFIED O CHANGES.
--- NOTE | 2019-06-13 10:50 | NUR ---
AT 1030, PT REQUESTING ORANGE JUIC AMD CUT UP FRUIT. PER DR. HARKINS, OK FOR PT TO EAT IF HE IS ABLE. PT HAS NO TEETH. CONSULTED WITH Zully LIN RT ABOUT HOW TO TAKE PT OFF BIPAP BRIELY FO PO INTAKE; SUGGESTED OXYMIZER AT 6 L/MIN PT CAN TOLERATE. EDUCATED PT ABOUT PLAN TO REMOVE BIPAP FOR SMALL AMT OF PO INTAKE AND PILLS; VERBALIZED UNDERSTANDING. READIED OXYMIZER, PO FLUIDS, AND MEDS. REMOVED BIPAP AT 1041; PT ABLE TO TAKE PILLS AND ~ 200 PO FLUIDS, THEN REQUESTED TO BE PUT BACK ON BIPAP, WHICH WAS COMPLETED. PT TOLERATED REMOVAL OF BIPAP FOR 4 MINUTES. WILL CONTINUE TO MONITOR.
--- NOTE | 2019-06-13 13:05 | NUR ---
WOUND CARE: PT HAS TWO SMALL OPEN AREAS ON RT LATERAL ASPECT OF FOOT. AREAS CLEANED WITH SKINTEGRITY, CALCIUM ALGINATE PLACED IN LARGER WOUND AND FOAM DRESSING PLACED ON LATERAL ASPECT OF RT FOOT.
--- NOTE | 2019-06-13 19:45 | NUR ---
SHIFT SUMMARY: A&O X 3, ANXIOUS AT TIMES, RELIEVED WITH IV ATIVAN. STARTLES EASILY, WHICH CAUSES ANXIETY, HAS ASKED THAT WE DON'T TURN LIGHTS ON SUDDENLY, BUT APPROACH BED AND CALL HIS NAME. LUNG SOUNDS IMPROVED OVER THE COURSE OF THE DAY, MUCH CLEARER THAT AT START OF SHIFT. ON BIPAP, 07/08 WITH 40% FIO2, RR 19-30. DAVENPORT DRAINED 1300 ML THIS SHIFT, 24 HOUR URINE COLLECTION IN PROGRESS, TO FINISH TONIGHT AT 0030. BG ELEVATED, RECEIVED VERBAL ORDER TO START MEDIUM S/S INSULIN. C/O PAIN IN KNEES, NECK, AND CHEST; RELIEVED WITH FENTANYL. DIFFICULTY TAKING PILLS D/T SOB. COMPLIANT WITH FLUID RESTRICTION. HEPRIN INFUSING AT 160UNITS/KG/HR, NEXT PTT DUE AT 2330.
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
--- NOTE | 2019-06-13 20:43 | NUR ---
PAIN PT C/O PAIN TO CHEST, BACK AND KNEE. 9/10 MED WITH FENTANYL
--- NOTE | 2019-06-14 00:36 | NUR ---
PT SLEEPING WITH BIPAP ON. HEPARIN GTT INCREASED TO 18 UNITS/KG/HR. HEPARIN BOLUS GIVEN.
[2019-06-14 02:00] LABS: Protein, Urine Quantitative 104.9 mg/dL (0.0-11.9)
--- NOTE | 2019-06-14 02:48 | NUR ---
PAIN PT AWAKE SITTING UP IN BED WATCHING TV. C/O PAIN 9/10 WITH COUGHING TO BACK AND CHEST. MED WITH FENTANYL 25 MCQ
[2019-06-14 03:49] LABS: BASOPHILS PERCENT AUTO 0 % (0-2); EOSINOPHILS PERCENT AUTO 0 % (0-6); Hematocrit 26.1 % (37.0-53.0); Hemoglobin 8.6 g/dL (13.5-17.5); IMMATURE GRAN ABSOLUTE AUTO 0.06 K/mm3 (0.00-0.10); IMMATURE GRAN PERCENT AUTO 1 % (0-1); LYMPHOCYTES ABSOLUTE AUTO 0.44 K/mm3 (0.84-5.20); LYMPHOCYTES PERCENT AUTO 4 % (21-46); MONOCYTES ABSOLUTE AUTO 0.56 K/mm3 (0.16-1.47); MONOCYTES PERCENT AUTO 6 % (4-13); Mean Corpuscular HGB 29.1 pg (26.0-34.0); Mean Corpuscular Volume 88 fL (80-100); Mean Platelet Volume 9.5 fL (9.1-12.4); NEUTROPHILS ABSOLUTE AUTO 8.91 K/mm3 (1.96-9.15); NEUTROPHILS PERCENT AUTO 89 % (41-73); NRBC ABSOLUTE 0.02 K/mm3 (0.00-0.02); NRBC Auto 0.2 /100 WBC (0.0-0.2); Platelet Count 283 K/mm3 (150-400); RDW Standard Deviation 44.5 fL (35.1-46.3); Red Blood Cell Count 2.96 M/mm3 (4.30-5.90); White Blood Cell Count 9.97 K/mm3 (4.00-11.30)
[2019-06-14 04:08] LABS: Albumin, Blood 2.5 g/dL (3.4-5.0); Albumin/Globulin Ratio 0.6 (0.8-1.8); Bilirubin, Total 0.8 mg/dL (0.1-1.0); Bun/Creatinine Ratio 20.7 (12.0-20.0); Calcium, Blood 8.3 mg/dL (8.5-10.1); Creatinine, Blood 3.34 mg/dL (0.60-1.20); Globulin, Blood 4.5 g/dL (2.2-4.0); Magnesium, Blood 2.3 mg/dL (1.6-2.4); Phosphorus, Blood 7.1 mg/dL (2.5-4.9)
--- NOTE | 2019-06-14 06:47 | NUR ---
SHIFT SUMMARY PT RESTED QUIELTY DURING THE NIGHT WITH BIPAP ON. BIPAP SETTINGS 07/08 RT HAS DECREASED FIO2 DOWN TO 45%. LUNGS DECREASED THROUGHOUT. SPUTUM SAMPLE SENT. HEART IRREGULAR AT TIMES, AFIB/SR. BP STABLE. TURNING AND MOVING SELF IN BED. CENTRAL LINE TO RIGHT IJ DRSG CHANGED. HEPARIN AT 18 UNITS/KG/HR. VSS. 24 HR URINE SENT. PT MED WITH FENTANYL 25 MCQ FOR BACK AND CHEST PAIN WITH COUGHING. REPORT TO ON COMING NOLAN
--- NOTE | 2019-06-14 07:11 | NUR ---
ASSUMED CARE REPORT FROM BRENDON ANGEL. PATIENT IS A&O, WATCHING TV WITH BIPAP MASK ON. HEPARIN GTT 18 UNITS/KG/HOUR
--- NOTE | 2019-06-14 07:14 | NUR ---
MD VISIT DR. WHITE IN. REQUESTED ADJUSTMENT OF PATIENT'S BIPAP MASK FOR COMFORT
--- NOTE | 2019-06-14 08:08 | NUR ---
MD VISIT DR. ARMSTRONG IN. WILL START XARELTO. WILL ORDER PT/OT
--- NOTE | 2019-06-14 08:11 | NUR ---
TOLERATED BREAK FROM BIPAP WITH NC. DYSPNEAC WITH TALKING AND ACTIVITY. BIPAP PLACED BACK ON FOR REPOSITION IN BED AND EDUCATION ABOUT HOB POSITION AND CHF. PATIENT LACKS UNDERSTANDING ABOUT HIS HEART FAILURE AND SAYS HE HAS HAD A BIPAP AT HOME FOR YEARS, BUT HAS NOT USED IT AND DID NOT [facility]ERSTAND FROM [facility] REAS[facility] IT. HAS BECOME INCREASINGLY WEAK AND HAS BEEN USING WHEELCHAIR AT HOME. BIPAP MASK PLACED BACK ON AT PATIENT REQUEST BECAUSE HE IS FEELING SOB.
--- NOTE | 2019-06-14 08:16 | NUR ---
ORDERS TO ALLOW Q4 HOUR BP'S THE PATIENT FINDS THE BP CUFF CONFINING. THE PATIENT SUFFERS FROM SEVERE PTSD.
--- NOTE | 2019-06-14 08:20 | NUR ---
DISCUSSED CENTRAL LINE REMOVAL WITH NATHANIEL MATHEW, BUT PATIENT SAYS HE WILL HAVE NO OTHER ACCESS AVAILABLE
--- NOTE | 2019-06-14 08:29 | NUR ---
TITRATED FI02 FROM 45 TO 40 FOR BIOX 98%
--- NOTE | 2019-06-14 08:56 | NUR ---
PATIENT SLEEPING WITH BIPAP MASK IN PLACE
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
--- NOTE | 2019-06-14 14:08 | NUR ---
PATIENT HAS TOLERATED BREAKS FROM HIS BIPAP MASK, EVEN TOLERATING GETTING BACK INTO BED WITH ASSISTANCE FROM OT WITH NC ONLY. WAS ABLE TO EAT A SMALL AMOUNT OF LUNCH.
[2019-06-14 18:07] LABS: Bun/Creatinine Ratio 25.1 (12.0-20.0); Calcium, Blood 8.6 mg/dL (8.5-10.1); Creatinine, Blood 3.15 mg/dL (0.60-1.20); Magnesium, Blood 2.3 mg/dL (1.6-2.4); Potassium, Blood 4.4 mmol/L (3.5-5.5)
[2019-06-14 18:11] LABS: Glucose, Blood 485 mg/dL (70-99)
--- NOTE | 2019-06-14 18:40 | NUR ---
PATIENT OOB FOR DINNER. C/O RIGHT HAND CRAMP WHILE EATING.
--- NOTE | 2019-06-14 19:30 | NUR ---
18 UNITS INSULIN GIVEN. FENTANYL [address] NGO STOPPED BY. NOTIFIED OF SODIUM TREND. NO NEW ORDERS. REPORT GIVEN TO BRENDON CROUCH
[2019-06-14 19:50] LABS: Glucose, Blood 489 mg/dL (70-99)
--- NOTE | 2019-06-14 21:00 | NUR ---
PT UP IN CHAIR AT SHIFT CHANGE, ON 7L HF NC, WATCHING TV. LAB DRAWN FOR CONFIRMATORY HIGH BG. PT WAS DOSED W INSULIN BY GUSTAVO OLIVAS. WILL RECHECK WHEN PT READY FOR SLEEP. VSS. FREQ CHANGED TO Q4H BY . PT IS DIURESING LG VOLUME CL URINE. PT STATES ACHES ALL OVER & HE FEEL IT IS RELATED TO DURESIS. ELECTROLYTES WNL. PT ENCOURAGED TO WEAR BIPAP AT REST. PT STATES HE'S NOT READY. WATCHING TV, CALL LIGHT IN REACH.
[2019-06-15 04:11] LABS: BASOPHILS ABSOLUTE AUTO 0.01 K/mm3 (0.00-0.23); BASOPHILS PERCENT AUTO 0 % (0-2); EOSINOPHILS PERCENT AUTO 0 % (0-6); Hematocrit 28.1 % (37.0-53.0); Hemoglobin 9.5 g/dL (13.5-17.5); IMMATURE GRAN ABSOLUTE AUTO 0.09 K/mm3 (0.00-0.10); IMMATURE GRAN PERCENT AUTO 1 % (0-1); LYMPHOCYTES ABSOLUTE AUTO 0.68 K/mm3 (0.84-5.20); LYMPHOCYTES PERCENT AUTO 6 % (21-46); MONOCYTES PERCENT AUTO 8 % (4-13); Mean Corpuscular HGB 29.4 pg (26.0-34.0); Mean Corpuscular HGB Conc 33.8 g/dL (31.5-36.5); Mean Corpuscular Volume 87 fL (80-100); Mean Platelet Volume 9.6 fL (9.1-12.4); NEUTROPHILS ABSOLUTE AUTO 9.62 K/mm3 (1.96-9.15); NEUTROPHILS PERCENT AUTO 85 % (41-73); NRBC ABSOLUTE 0.03 K/mm3 (0.00-0.02); NRBC Auto 0.3 /100 WBC (0.0-0.2); Platelet Count 336 K/mm3 (150-400); RDW Coefficient Variation 13.8 % (11.7-14.2); RDW Standard Deviation 42.9 fL (35.1-46.3); Red Blood Cell Count 3.23 M/mm3 (4.30-5.90)
[2019-06-15 04:32] LABS: Albumin, Blood 2.7 g/dL (3.4-5.0); Albumin/Globulin Ratio 0.6 (0.8-1.8); Bilirubin, Total 0.6 mg/dL (0.1-1.0); Bun/Creatinine Ratio 26.3 (12.0-20.0); Calcium, Blood 8.8 mg/dL (8.5-10.1); Creatinine, Blood 3.04 mg/dL (0.60-1.20); Globulin, Blood 4.6 g/dL (2.2-4.0); Magnesium, Blood 2.2 mg/dL (1.6-2.4); Phosphorus, Blood 5.5 mg/dL (2.5-4.9); Potassium, Blood 4.1 mmol/L (3.5-5.5); Total Protein, Blood 7.3 g/dL (6.4-8.2)
--- NOTE | 2019-06-15 06:10 | NUR ---
PT HAS SLEPT SHORT PERIODS TONOC. STATES CONT TO HAVE "PAIN ALL OVER" & REQUESTS TO BE MED EVERY 2 HOURS "LIKE I CAN HAVE IT". EXPLAINED THAT FENTANYL IS FOR PAIN NEEDED, UP TO EVERY TWO HOURS, BUT NOT SCHEDULED. PT DOES NOT WANT TO TAKE TYLENOL. WILL REQUEST ORAL PAIN MED TODAY. PT REFUSED TO WEAR BIPAP TONOC, CONT ON 7L HF NC. DIURESED 3600ML TONOC. DR WHITE IN, NEW ORDERS. HAS CONT SR, NO AFIB NOTED TONOC. CALL LIGHT IN REACH.
--- NOTE | 2019-06-15 13:40 | NUR ---
PT ASSESSED AT 0730 THIS AM. PT AWAKE AND ALERT ON 7L HIGH/BREANNA O2. SATS 88-92%. PT HAS DYSPNEA WITH EXERTION/SPEECH. RESP RATE 30'S. DR ASHRAF AT BEDSIDE. PT COUGHING; STATES HE CHOKED ON SOME WATER;VERY ANXIOUS. C/O PAIN TO NECK, SHOULDERS, ABD, AND CHEST 8-10/10. PT IN NSR/AFIB, THEN COVERTED TO AFIB W RATE 110-150'S. HTN. BIPAP PLACED WITH RECOVERY OF SATS. PT MORE COMFORTABLE/CALM WEARING BIPAP. ATIVAN/FENT GIVEN FOR ANXIETY AND PAIN. PERCOCET ORDERED FOR LONGER PAIN COVERAGE. LUNGS SOUNDS ABSENT TO BASES, DIMINISHED T/O. BIPAP REMAINED ON FOR MOST OF MORNING. LASIX AND STEROIDS IV GIVEN W GOOD EFFECT. PT ABLE TO TOLERATE LONG BREAK FROM BIPAP. PT OOB TO CHAIR W STAND BY ASSIST AND WALKER. SATS 90-98% ON 7L HIGHFLO. LUNG SOUNDS REMAIN DIMINISHED T/O, MILD IMPROVEMENT TO BASES; IN MOVING A LITTLE AIR NOW. NO WHEEZING. HEART RATE IMPROVED, SINUS RHYTHM W RATE 105. VISITING W FAMILY; TOLERATED LUNCH.
--- NOTE | 2019-06-15 13:45 | NUR ---
Pal care visit: Follow up visit made to pt and in ICU #11. Pt is up in chair, finishing his lunch. He is visibly less dyspnic and appears much less painful than when I visited yesterday am. Pt is able to carry on conversation with nasal canula O2 support. He does demonstrate increased dyspnea with ongoing conversation but is able to pace himself and continue talking, which he could not do yesterday. WE discussed ongoing needs and wishes for care. Pt is motivated to get more mobile, stronger and able to tolerate more activity again. He states, "I have grandchildren I have never held yet". reports that they now understand that pt did have a heart attack also. EMR confirms NSTEMI per social group worker. Discussed cardiac rehab program again, participation recommended after MN, pending 's clearance and orders when pt ready. Questions re: CHF, Cardiac rehab and pulmonary rehab answered. Update and case conference obtained from bedside RN after visit. Pt reports better pain management with oral analgesics ordered. He is engaged in conversation with me and family and fully participatory and good humored today. He is clearly feeling much better, expressing hopefulness. Pt encouraged to increase his self care and self education on managing his heart, lung and DM for improved quality life and extended longevity with his family life as a primary motivating factor.
--- NOTE | 2019-06-15 17:29 | NUR ---
PT SITTING UP IN BED, MEDICATED FOR GENERALIZED PAIN. LEFT WRIST REMAINS IN BRACE FOR FX. CIRC CHECK WNL. PT SATS 92-97%N ON 7L VIA HIGHFLO N/C. LUNGS REMAIN DIMINISHED T/O ESPECIALLY IN BASES. STITCHES IN LEFT KNEE REMOVED AND REPLACED W STERI-STRIPS PER DR VALERIO ORDERS. BS 453, BP ELEVATED. DR ARMSTRONG CALLED AND NOTIFIED. SEE NEW ORDERS. PT OVERALL IMPROVED FROM THIS AM. REMAINS IN NSR/SINUS TACH
--- NOTE | 2019-06-15 20:15 | NUR ---
INITIAL ASSESSMENT: PT A&0. DENIES PAIN AT THIS TIME, AFEBRILE. LUNG SOUNDS WHEEZY AND DIM AT BASES. PT IS ON 7L HUMIDIFIED NC. BIPAP IS PRN. SATTING >90%. HR IN THE 100S. PT CURRENTLY ST, SBP IN THE 160S. BT PRESENT BUT HYPOACTIVE. DAVENPORT IN PLACE DRAINING CLEAR YELLOW URINE. BRUISING TO BILAT KNEES, SUTURES REMOVED TO L KNEE AND STERISTRIPS IN PLACE. BILAT BRUISING TO UPPER EXTREMITIES. RIJ IN PLACE SL. NO COMPLAINTS AT THIS TIME. BED IN LOWEST POSITION. CALL LIGHT IN REACH.
--- NOTE | 2019-06-15 23:43 | NUR ---
CARE ASSUMPTION PT A&O X4. VSS. MONITOR SHOWS NSR, HR 90s. LUNG SOUNDS COARSE T/O, NO WHEEZE AT THIS TIME. SPO2 > 92% ON 7L HUMIDIFIED HI-FLOW CANNULA. BIPAP AT BEDSIDE THAT PT REQUESTS PUTTING ON AT 0000 BEFORE GOING TO SLEEP. DAVENPORT CATH PATENT AND DRAINING. WILL CONTINUE TO MONITOR AND PROVIDE CARE.
[2019-06-16 03:47] LABS: Hematocrit 28.7 % (37.0-53.0); Hemoglobin 9.5 g/dL (13.5-17.5)
[2019-06-16 04:05] LABS: Albumin, Blood 2.7 g/dL (3.4-5.0); Anion Gap 7 mmol/L (6-16); Blood Urea Nitrogen 83 mg/dL (8-24); Bun/Creatinine Ratio 26.9 (12.0-20.0); CO2, Blood 32 mmol/L (21-32); Calcium, Blood 8.7 mg/dL (8.5-10.1); Chloride, Blood 89 mmol/L (98-108); Creatinine, Blood 3.08 mg/dL (0.60-1.20); Glomerular Filtration Rate 22 (60-); Glucose, Blood 337 mg/dL (70-99); Magnesium, Blood 2.3 mg/dL (1.6-2.4); Phosphorus, Blood 5.2 mg/dL (2.5-4.9); Potassium, Blood 5.1 mmol/L (3.5-5.5); Sodium, Blood 128 mmol/L (136-145)
--- NOTE | 2019-06-16 04:47 | NUR ---
SHIFT SUMMARY PT CONTINUES TO BE A&O X4. VSS. MONITOR SHOWS NSR, HR 80-100. NO AFIB THIS SHIFT. LUNG SOUNDS COARSE T/O. SPO2 > 92% ON 7L HUMIDIFIED HI-FLOW CANNULA. PT WEARING BIPAP: 07/08, FIO2 30% FOR APPROX 2.5 HRS THIS SHIFT. PT C/O PAIN IN L WRIST, MEDICATED PER EMAR/PT REQUEST X1 THIS SHIFT. DAVENPORT CATH PATENT AND DRAINING CLEAR YELLOW URINE. RIJ S/L. WILL CONTINUE TO MONITOR AND PROVIDE CARE.
--- NOTE | 2019-06-16 07:22 | NUR ---
ASSUMED CARE: RECEIVED REPORT FROM SPEEDY RN. PT SITTING UP IN BED WITH NEBULIZER TREATMENT FACEMASK IN PLACE AND RT IN THE ROOM. PT DENIES PAIN AT THIS TIME. NO ACUTE DISTRESS NOTED. WILL CONTINUE TO MONITOR AND ASSESS FURTHER.
[2019-06-16 12:45] LABS: Glucose, Blood 484 mg/dL (70-99)
--- NOTE | 2019-06-16 13:18 | NUR ---
HIGH BLOOD SUGAR: PT GLUCOSE IS NOTED TO BE 484. DR ARMSTRONG CALLED AND NOTIFIED AND ORDERS TO GIVE 20 UNITS OF FAST ACTING INSULIN AND NEW ORDERS PUT IN FOR LANTUS.
--- NOTE | 2019-06-16 15:00 | NUR ---
pt arrived to pcu via wheelchair, he is a/ox3, pleasant and cooperative with care, follows commands well, reports pain 8/10, will give percocet, at bedside, vs stable. call light in reach.
--- NOTE | 2019-06-16 19:11 | NUR ---
PT DOING OK, STILL HAS A LOT OF PAIN IN HIS NECK ETC... RESTING IN BED, NO ACUTE CHANGES THIS SHIFT. CALL LIGHT IN REACH.
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
--- NOTE | 2019-06-16 22:39 | NUR ---
CONVERT SR TO AFIB REPORT FROM [employer] DEVELOPER THAT PT CONVERTED FROM NSR TO AFIB, HR 100-110 @ 2201. STRIP PRINTED IN CHART. PT DENIES FEELING ANY CHANGES, FURTHER STATING, "I NORMALLY FEEL WHEN I GO INTO IT, BUT I DIDN'T NOTICE THIS TIME. 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 WILL CONTINUE TO MONITOR AND PROVIDE CARE.
[2019-06-17 03:36] LABS: Hematocrit 30.4 % (37.0-53.0); Hemoglobin 10.1 g/dL (13.5-17.5)
[2019-06-17 03:51] LABS: Albumin, Blood 2.7 g/dL (3.4-5.0); Anion Gap 7 mmol/L (6-16); Blood Urea Nitrogen 95 mg/dL (8-24); Bun/Creatinine Ratio 31.2 (12.0-20.0); CO2, Blood 32 mmol/L (21-32); Calcium, Blood 8.7 mg/dL (8.5-10.1); Chloride, Blood 92 mmol/L (98-108); Creatinine, Blood 3.04 mg/dL (0.60-1.20); Glomerular Filtration Rate 22 (60-); Glucose, Blood 300 mg/dL (70-99); Magnesium, Blood 2.1 mg/dL (1.6-2.4); Phosphorus, Blood 5.3 mg/dL (2.5-4.9); Potassium, Blood 4.8 mmol/L (3.5-5.5); Sodium, Blood 131 mmol/L (136-145)
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
--- NOTE | 2019-06-17 13:40 | NUR ---
pt resting in bed, complaining of neck and shoulder pain, percocet given. P.T. in to see work with him. call light in reach.
--- NOTE | 2019-06-17 16:17 | NUR ---
pt had bm this afternoon, no complaints or changes call light in reach.
--- NOTE | 2019-06-17 19:09 | NUR ---
pt in bed, doing ok, no complaints or needs, states he is doing fine, call light in reach.
[2019-06-18 03:59] LABS: Hematocrit 30.5 % (37.0-53.0)
[2019-06-18 04:15] LABS: Albumin, Blood 2.7 g/dL (3.4-5.0); Anion Gap 7 mmol/L (6-16); Blood Urea Nitrogen 96 mg/dL (8-24); Bun/Creatinine Ratio 32.1 (12.0-20.0); CO2, Blood 32 mmol/L (21-32); Calcium, Blood 8.4 mg/dL (8.5-10.1); Chloride, Blood 93 mmol/L (98-108); Creatinine, Blood 2.99 mg/dL (0.60-1.20); Glomerular Filtration Rate 22 (60-); Glucose, Blood 192 mg/dL (70-99); Magnesium, Blood 1.9 mg/dL (1.6-2.4); Phosphorus, Blood 4.8 mg/dL (2.5-4.9); Potassium, Blood 4.1 mmol/L (3.5-5.5); Sodium, Blood 132 mmol/L (136-145)
--- NOTE | 2019-06-18 05:27 | NUR ---
SHIFT SUMMARY PT SLEEPING IN ROOM COMFORTABLY AT THIS TIME. NO ACUTE CHNAGES IN STATUS T/O NIGHT. PT DENIED CP T/O NIGHT. HR NOTED TO BE SLIGHTLY TRENDING UP DURING NIGHT, PT WAS NOTED TO BE ACTIVE IN ROOM AT TIMES WHEN HR WAS ELEVATED HOWEVER. RESP EVEN UNLABORED ON 2L NC W/ SATS >92%. DENIES OTHER NEEDS. PT HAS CENTRAL LINE IN RIJ, FLUSHES AND DRAWS WELL. CALL LIGHT IN REACH. PT CALLS APPROPRIATELY.
--- NOTE | 2019-06-18 08:45 | NUR ---
BEDSIDE REPORT REC'D FROM SPEEDY OLIVAS. PT PLEASANT AND COOPERATIVE. SITTING UP IN CHAIR. DR IN TO SEE. TRANSFER ORDERS REC'D, PT WILL GO TO MED 311. ASSESSMENT NOTED. AM MEDS GIVEN. VSS. REPORT CALLED TO MEME OLIVAS. PT TRANSFERRED BY REPLACER WITH BELONGINGS AND MEDS VIA WC.
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
--- NOTE | 2019-06-18 16:28 | NUR ---
NOTIFIED DR ARMSTRONG OF HR STAYING IN 130'S PER PCU MX TECH. NEW ORDERS TO FOLLOW.
[2019-06-19 05:55] LABS: Hematocrit 32.8 % (37.0-53.0); Hemoglobin 10.9 g/dL (13.5-17.5)
[2019-06-19 06:12] LABS: Albumin, Blood 2.7 g/dL (3.4-5.0); Anion Gap 7 mmol/L (6-16); Blood Urea Nitrogen 86 mg/dL (8-24); Bun/Creatinine Ratio 31.4 (12.0-20.0); CO2, Blood 34 mmol/L (21-32); Calcium, Blood 8.6 mg/dL (8.5-10.1); Chloride, Blood 95 mmol/L (98-108); Creatinine, Blood 2.74 mg/dL (0.60-1.20); Glomerular Filtration Rate 25 (60-); Magnesium, Blood 1.9 mg/dL (1.6-2.4); Phosphorus, Blood 5.5 mg/dL (2.5-4.9); Potassium, Blood 3.3 mmol/L (3.5-5.5); Sodium, Blood 136 mmol/L (136-145)
[2019-06-19 06:20] LABS: Glucose, Blood 43 mg/dL (70-99)
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
[2019-06-19] MEDS ORDERED: AMLO10 PO (11:35)
[2019-06-19] MEDS ORDERED: Bumetanide2 MG PO (11:36)
[2019-06-19] MEDS ORDERED: ELIQUIS5 MG PO (11:36)
[2019-06-19] MEDS ORDERED: Isosorbide Mono60 MG PO (11:37)
[2019-06-19] MEDS ORDERED: POTA10T PO (11:37)
--- NOTE | 2019-06-19 12:39 | NUR ---
DISCHARGE NOTE DISCHARGE INSTRUCTIONS VERBALIZED TO THE PATIENT AND HIS ; PRINTED COPY GIVEN WELL FOR REFERENCE. ALL QUESTIONS ANSWERED. EDUCATION MATERIAL GIVEN REGARDING ACUTE RESP FAILURE. TELE REMOVED AND RETURNED TO PCU. IJ CENTRAL LINE REMOVED BY JACKELYN JAIN RN. DRESSING FELL OFF WHILE PATIENT WAS DRESSING, PATIENT CALLED TO INFORM ME. I CLEANED SITE WITH CHLORAPREP AND APPLIED PRESSURE DRESSING WITH 2x2 GAUZE AND TEGADERM PLACED. INFORMED JACKELYN SWENSON RN THAT I REPLACED THE DRESSING. PATIENT IN ROOM GETTING READY TO DISCHARGE HOME. IS AT BEDSIDE.
--- NOTE | 2019-06-19 12:53 | NUR ---
PATIENT DISCHARGED HOME AT 1251. PROGRAM ANALYST PUSHED PATIENT OUT TO [employer] VIA TRANSPORT W/C. TRANSPORTING PATIENT HOME.
== END 2019-06-19 12:52 | disposition home health service (06) | DRG 871 ==
LOC: ER 12:07 → ICUW 17:00 → PCU 06-16 14:37 → MEDS 06-18 09:11
PROVIDERS: Emergency Medicine; Hospitalist; Internal Medicine Cardiovascular Disease; Internal Medicine Critical Care Medicine; Internal Medicine Nephrology; Nurse Practitioner Acute Care; ADMIT Internal Medicine
PROC: 5A09457 Assistance with Respiratory Ventilation, 24-96 Consecutive Hours, Continuous Positive Airway Pressure (ICD-10-PCS; principal; 2019-06-12)
DX: A41.3 Sepsis due to Hemophilus influenzae (principal); J96.21 Acute and chronic respiratory failure with hypoxia; N17.0 Acute kidney failure with tubular necrosis; J14 Pneumonia due to Hemophilus influenzae; I21.A1 Myocardial infarction type 2; N17.9 Acute kidney failure, unspecified; I48.20 Chronic atrial fibrillation, unspecified; I13.0 Hypertensive heart and chronic kidney disease with heart failure and stage 1 through stage 4 chronic kidney disease, or unspecified chronic kidney disease; J44.0 Chronic obstructive pulmonary disease with (acute) lower respiratory infection; E87.1 Hypo-osmolality and hyponatremia; R65.20 Severe sepsis without septic shock; Z79.01 Long term (current) use of anticoagulants; E11.22 Type 2 diabetes mellitus with diabetic chronic kidney disease; N18.3 Chronic kidney disease, stage 3 (moderate); I50.9 Heart failure, unspecified; Z79.4 Long term (current) use of insulin; M35.3 Polymyalgia rheumatica; I35.0 Nonrheumatic aortic (valve) stenosis; E66.01 Morbid (severe) obesity due to excess calories; G89.29 Other chronic pain; N40.1 Benign prostatic hyperplasia with lower urinary tract symptoms; Z77.090 Contact with and (suspected) exposure to asbestos; B19.20 Unspecified viral hepatitis C without hepatic coma; S52.502S Unspecified fracture of the lower end of left radius, sequela; E11.649 Type 2 diabetes mellitus with hypoglycemia without coma; Z68.38 Body mass index [BMI] 38.0-38.9, adult
CPT/HCPCS: 31720; 36415; 36556; 36600; 51702; 71045; 71250; 74150; 80048; 80053; 80069; 81001; 81050; 82550; 82803; 82947; 83605; 83735; 83880; 84100; 84145; 84156; 84484; 85014; 85018; 85025; 85730; 87040; 87070; 87077; 87185; 87186; 87205; 87252; 87254; 87449; 93005; 93010; 93306; 94640; 94644; 94660; 94762; 96365; 96367; 96375; 97110; 97116; 97162; 97166; 97530; 97535; 99285-25; A9270; A9270-GY; C1751; C9113; J0456; J0696; J0881; J1644; J1815; J1940; J2060; J2920; J2930; J3010; J7030; J7050; J7060; J7512; J7799; P9046

== ENCOUNTER 2019-06-22 13:46 | Observation (INO) | payer OTHER ==
[~2019-06-22] VITALS: Ht 172.7 cm; Wt 105.0 kg
[~2019-06-22 13:46] MED LIST changes: +AMLO10 PO; +Bumetanide2 MG PO; +ELIQUIS5 MG PO; +Isosorbide Mono60 MG PO; +METO25 PO; +POTA10T PO
[2019-06-22 14:45] LABS: BASOPHILS ABSOLUTE AUTO 0.02 K/mm3 (0.00-0.23); BASOPHILS PERCENT AUTO 0 % (0-2); EOSINOPHILS ABSOLUTE AUTO 0.47 K/mm3 (0.00-0.68); EOSINOPHILS PERCENT AUTO 4 % (0-6); Hematocrit 29.9 % (37.0-53.0); Hemoglobin 9.5 g/dL (13.5-17.5); IMMATURE GRAN ABSOLUTE AUTO 0.06 K/mm3 (0.00-0.10); IMMATURE GRAN PERCENT AUTO 1 % (0-1); LYMPHOCYTES PERCENT AUTO 8 % (21-46); MONOCYTES ABSOLUTE AUTO 0.88 K/mm3 (0.16-1.47); MONOCYTES PERCENT AUTO 7 % (4-13); Mean Corpuscular HGB 28.2 pg (26.0-34.0); Mean Corpuscular HGB Conc 31.8 g/dL (31.5-36.5); Mean Corpuscular Volume 89 fL (80-100); Mean Platelet Volume 10.3 fL (9.1-12.4); NEUTROPHILS ABSOLUTE AUTO 9.53 K/mm3 (1.96-9.15); NEUTROPHILS PERCENT AUTO 80 % (41-73); Platelet Count 271 K/mm3 (150-400); RDW Standard Deviation 45.4 fL (35.1-46.3); Red Blood Cell Count 3.37 M/mm3 (4.30-5.90); White Blood Cell Count 11.86 K/mm3 (4.00-11.30)
[2019-06-22 15:34] LABS: Albumin, Blood 2.3 g/dL (3.4-5.0); Albumin/Globulin Ratio 0.5 (0.8-1.8); Bilirubin, Total 0.4 mg/dL (0.1-1.0); Bun/Creatinine Ratio 18.5 (12.0-20.0); Calcium, Blood 8.2 mg/dL (8.5-10.1); Creatinine, Blood 2.92 mg/dL (0.60-1.20); Globulin, Blood 4.3 g/dL (2.2-4.0); Potassium, Blood 4.1 mmol/L (3.5-5.5); Total Protein, Blood 6.6 g/dL (6.4-8.2); Troponin I 0.208 ng/mL (0.000-0.040)
--- NOTE | 2019-06-22 20:27 | NUR ---
Transfer report from Josi OLIVAS in ER on PT being admitted with hypotension nausea vomiting and will be on tele. Await admission
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
[2019-06-23 04:49] LABS: BASOPHILS ABSOLUTE AUTO 0.03 K/mm3 (0.00-0.23); BASOPHILS PERCENT AUTO 0 % (0-2); EOSINOPHILS ABSOLUTE AUTO 0.46 K/mm3 (0.00-0.68); EOSINOPHILS PERCENT AUTO 5 % (0-6); Hematocrit 27.4 % (37.0-53.0); Hemoglobin 8.8 g/dL (13.5-17.5); IMMATURE GRAN ABSOLUTE AUTO 0.06 K/mm3 (0.00-0.10); IMMATURE GRAN PERCENT AUTO 1 % (0-1); LYMPHOCYTES ABSOLUTE AUTO 1.08 K/mm3 (0.84-5.20); LYMPHOCYTES PERCENT AUTO 12 % (21-46); MONOCYTES ABSOLUTE AUTO 0.84 K/mm3 (0.16-1.47); MONOCYTES PERCENT AUTO 9 % (4-13); Mean Corpuscular HGB 28.9 pg (26.0-34.0); Mean Corpuscular HGB Conc 32.1 g/dL (31.5-36.5); Mean Corpuscular Volume 90 fL (80-100); Mean Platelet Volume 10.7 fL (9.1-12.4); NEUTROPHILS ABSOLUTE AUTO 6.68 K/mm3 (1.96-9.15); NEUTROPHILS PERCENT AUTO 73 % (41-73); Platelet Count 193 K/mm3 (150-400); Red Blood Cell Count 3.05 M/mm3 (4.30-5.90); White Blood Cell Count 9.15 K/mm3 (4.00-11.30)
[2019-06-23 05:04] LABS: Bun/Creatinine Ratio 18.9 (12.0-20.0); Calcium, Blood 7.9 mg/dL (8.5-10.1); Creatinine, Blood 2.91 mg/dL (0.60-1.20); Potassium, Blood 3.5 mmol/L (3.5-5.5)
[2019-06-23] MEDS ORDERED: LEVO750 PO (15:02)
--- NOTE | 2019-06-23 16:37 | NUR ---
PT LEFT AMA. HE HAD TOLD KALI WINTER HE WAS LEAVING ONCE HIS BROTHER ARRIVED. PT REFUSED TO SIGN PAPERS AND BARELY WOULD STAY LONG ENOUGH REMOVE POWERGLIDE. PT HAD HIS BELONGINGS AND WALKED OUT. PT WOULD NOT TALK ABOUT NEEDING TO SCHEDULE DIALYSIS. DR RILEY WAS NOTIFIED BY RENZO AND CHARGE NURSE NOTIFIED.
--- NOTE | 2019-06-24 11:18 | NUR ---
PT DISCHARGE AT 1330 WITH TO TRANSPORT. HOME O2 EVAL COMPLETED PRIOR TO DISCHARGE. PT DID NOT QUALIFY. PT HAD ALL PAPERS REVIEWED AND EDUCTIONAL PAPERS SENT. PT HAD MEDS FAXED TO [facility]. PT ESCORTED T N ENTRANCE VIA WHEEL CHAIR. NO DISTRESS NOTED.
== END 2019-06-23 15:27 | disposition home health service (06) ==
LOC: ER 13:46 → MEDS 13:47
PROVIDERS: Physician Assistant; ADMIT Internal Medicine
DX: I95.9 Hypotension, unspecified (principal); J96.01 Acute respiratory failure with hypoxia; I35.0 Nonrheumatic aortic (valve) stenosis; I13.0 Hypertensive heart and chronic kidney disease with heart failure and stage 1 through stage 4 chronic kidney disease, or unspecified chronic kidney disease; E11.22 Type 2 diabetes mellitus with diabetic chronic kidney disease; N18.3 Chronic kidney disease, stage 3 (moderate); I50.9 Heart failure, unspecified; K86.3 Pseudocyst of pancreas; E11.628 Type 2 diabetes mellitus with other skin complications; L03.115 Cellulitis of right lower limb; E11.51 Type 2 diabetes mellitus with diabetic peripheral angiopathy without gangrene; I48.0 Paroxysmal atrial fibrillation; J44.9 Chronic obstructive pulmonary disease, unspecified; M35.3 Polymyalgia rheumatica; G89.29 Other chronic pain; F11.20 Opioid dependence, uncomplicated; N40.0 Benign prostatic hyperplasia without lower urinary tract symptoms; G43.909 Migraine, unspecified, not intractable, without status migrainosus; E11.622 Type 2 diabetes mellitus with other skin ulcer; L97.519 Non-pressure chronic ulcer of other part of right foot with unspecified severity; E66.01 Morbid (severe) obesity due to excess calories; Z68.35 Body mass index [BMI] 35.0-35.9, adult; Z88.0 Allergy status to penicillin; Z88.8 Allergy status to other drugs, medicaments and biological substances; Z91.030 Bee allergy status; Z79.1 Long term (current) use of non-steroidal anti-inflammatories (NSAID); Z79.82 Long term (current) use of aspirin; Z79.01 Long term (current) use of anticoagulants; Z79.02 Long term (current) use of antithrombotics/antiplatelets; Z79.4 Long term (current) use of insulin; Z79.51 Long term (current) use of inhaled steroids; Z79.899 Other long term (current) drug therapy; Z87.891 Personal history of nicotine dependence
CPT/HCPCS: 36415; 71046; 80048; 80053; 82947; 83880; 84484; 85025; 93005; 93010; 93971; 94660; 94760; 94761; 94762; 96374; 97162; 97165; 97530; 99285-25; G0378; J2405

== ENCOUNTER 2019-07-04 10:29 | Inpatient (IN) | payer OTHER ==
[~2019-07-04] VITALS: Ht 177.8 cm; Wt 109.1 kg
[2019-07-04] MEDS ORDERED: LEVOFLOXACIN750 MG PO (11:16)
[2019-07-04 11:26] LABS: BASOPHILS ABSOLUTE AUTO 0.04 K/mm3 (0.00-0.23); BASOPHILS PERCENT AUTO 0 % (0-2); EOSINOPHILS ABSOLUTE AUTO 0.22 K/mm3 (0.00-0.68); EOSINOPHILS PERCENT AUTO 2 % (0-6); Hematocrit 29.9 % (37.0-53.0); Hemoglobin 9.3 g/dL (13.5-17.5); IMMATURE GRAN ABSOLUTE AUTO 0.04 K/mm3 (0.00-0.10); IMMATURE GRAN PERCENT AUTO 0 % (0-1); LYMPHOCYTES ABSOLUTE AUTO 1.05 K/mm3 (0.84-5.20); LYMPHOCYTES PERCENT AUTO 12 % (21-46); MONOCYTES ABSOLUTE AUTO 0.71 K/mm3 (0.16-1.47); MONOCYTES PERCENT AUTO 8 % (4-13); Mean Corpuscular HGB 27.8 pg (26.0-34.0); Mean Corpuscular HGB Conc 31.1 g/dL (31.5-36.5); Mean Corpuscular Volume 90 fL (80-100); Mean Platelet Volume 9.7 fL (9.1-12.4); NEUTROPHILS ABSOLUTE AUTO 7.04 K/mm3 (1.96-9.15); NEUTROPHILS PERCENT AUTO 78 % (41-73); Platelet Count 204 K/mm3 (150-400); RDW Standard Deviation 45.9 fL (35.1-46.3); Red Blood Cell Count 3.34 M/mm3 (4.30-5.90)
[2019-07-04 11:45] LABS: Albumin, Blood 2.2 g/dL (3.4-5.0); Albumin/Globulin Ratio 0.5 (0.8-1.8); Bilirubin, Total 0.5 mg/dL (0.1-1.0); Bun/Creatinine Ratio 10.6 (12.0-20.0); Creatinine, Blood 2.07 mg/dL (0.60-1.20); Globulin, Blood 4.5 g/dL (2.2-4.0); Potassium, Blood 4.3 mmol/L (3.5-5.5); Total Protein, Blood 6.7 g/dL (6.4-8.2); Troponin I 0.091 ng/mL (0.000-0.040)
--- NOTE | 2019-07-04 18:45 | NUR ---
pt arrived to the medical floor from the er a/ox3, pleant and cooperative via stretcher, the pt was able to transfer to the bed with minimal assist, the pt was very sob with minimal excertion to the bathroom, the pts wound were redressed, the pt tolerated well, the pt was medicated for pain, the pt was oriented to the room layout and call system, the pt answered questions apropriatly, call light in reach, tele was applied
--- NOTE | 2019-07-04 19:33 | NUR ---
PT VOICED USES BI PAP AT NIGHT, CALL PLACED TO MD IMPLEMENTATION PROJECT COORDINATOR (DR MARTINEZ), ORDERS RECEIVED.
[2019-07-05 05:07] LABS: BASOPHILS ABSOLUTE AUTO 0.04 K/mm3 (0.00-0.23); BASOPHILS PERCENT AUTO 1 % (0-2); EOSINOPHILS ABSOLUTE AUTO 0.37 K/mm3 (0.00-0.68); EOSINOPHILS PERCENT AUTO 4 % (0-6); Hematocrit 30.4 % (37.0-53.0); Hemoglobin 9.6 g/dL (13.5-17.5); IMMATURE GRAN ABSOLUTE AUTO 0.02 K/mm3 (0.00-0.10); IMMATURE GRAN PERCENT AUTO 0 % (0-1); LYMPHOCYTES ABSOLUTE AUTO 1.37 K/mm3 (0.84-5.20); LYMPHOCYTES PERCENT AUTO 16 % (21-46); MONOCYTES ABSOLUTE AUTO 0.68 K/mm3 (0.16-1.47); MONOCYTES PERCENT AUTO 8 % (4-13); Mean Corpuscular HGB 27.6 pg (26.0-34.0); Mean Corpuscular HGB Conc 31.6 g/dL (31.5-36.5); Mean Corpuscular Volume 87 fL (80-100); Mean Platelet Volume 9.9 fL (9.1-12.4); NEUTROPHILS ABSOLUTE AUTO 6.09 K/mm3 (1.96-9.15); NEUTROPHILS PERCENT AUTO 71 % (41-73); Platelet Count 187 K/mm3 (150-400); RDW Coefficient Variation 14.1 % (11.7-14.2); RDW Standard Deviation 44.4 fL (35.1-46.3); Red Blood Cell Count 3.48 M/mm3 (4.30-5.90); White Blood Cell Count 8.57 K/mm3 (4.00-11.30)
[2019-07-05 05:26] LABS: Bun/Creatinine Ratio 9.8 (12.0-20.0); Calcium, Blood 8.2 mg/dL (8.5-10.1); Creatinine, Blood 2.24 mg/dL (0.60-1.20); Magnesium, Blood 1.6 mg/dL (1.6-2.4); Potassium, Blood 3.9 mmol/L (3.5-5.5)
--- NOTE | 2019-07-05 05:53 | NUR ---
Pt converted back to A-Fib earlier, in the 120's. Notified by [employer]. Call was placed to MD edge bonder (Dr Anderson) who stated to monitor and call back if he remained in the 120's. Pt monitored as per MD order, then increased to the 130's A-Fib. MD called back. MD noted Blood sugar of 64, wanted him to be given "some sugar" and would put in orders for Metoprolol - see MD orders for details. OJ with sugar added drew pt. Pt also wanted domething for anxiety. See MAR for details. Call light in reach.
--- NOTE | 2019-07-05 06:39 | NUR ---
Pt having SOB and reconverted HR back to A-Fib. HR increased to the 140's-150's. MD was notified, orders received for Lopressor IV. Med given, HR down to 120's. Bi Pap in use, instructed to keep it on. Voiced feeling better. Call light in reach.
--- NOTE | 2019-07-05 08:45 | NUR ---
pt transfered PTS HR PER TELE WAS 150 -180 A-FIB THIS AM, PTS AM CARDIAC MEDICATIONS AND ONE TIME IV DILTIAZEM PUSHED, AFTER ABOUT 30 MIN THE PTS HEART RATE CONTINUED IN A-FIB WITH A RATE APROX 130-160 PER TELE, DR. RILEY WAS AT THE BEDSIDE AND AN ORDER TO SEND THE PT TO PCU FOR A CARDIAC DRIP WAS GIVEN, REPORT WAS GIVEN TO ABDIRAHMAN OLIVAS IN THE PCU AND THE PT WAS TRANSFERED TO THE PCU VIA STRETCHER
--- NOTE | 2019-07-05 10:15 | NUR ---
PT REPORT FROM ANA Germain RN. PT TRANSFERRED IN FROM MEDICAL IN AFIB RVR H/R 130-180. PENDING ORDERS TO START CARDIZEM DRIP. PT PLEASANT SOB. LIGHT DISTRESS. PT STATES FEELS OKAY. JUST WEAK SOB. NEW IV STARTED. CONTINUE TO MONITOR.
--- NOTE | 2019-07-05 10:30 | NUR ---
CARDIZEM DRIP STARTED. 1030. BP 113/79 P 135
[2019-07-05 12:38] LABS: Troponin I 0.058 ng/mL (0.000-0.040)
[2019-07-05 12:40] LABS: Thyroid Stimulating Hormone 2.48 uIU/mL (0.360-4.800)
--- NOTE | 2019-07-05 14:16 | NUR ---
H/R STILL AFIB, RATE HIGH 80-90. DROPPED RATE TO 10/HR ON DILTIAZEM
--- NOTE | 2019-07-05 19:47 | NUR ---
PT QUITE PLEASANT TODAY. DENIES PAIN, CARDIZEM DRIP DOWN TO 5. H/R 80'S. DR STARTED ON BUMEX. CAHNGED SOME HEART MEDS. BP MAINTAINING IN LOW ONE-TEENS. ACTIVE IN CARE AND TALKING TO DR KENT. PT USES CPAP FOR EXTRA AIR WITHOUT FACE MASK BLOWING IN FACE TO MAKE MORE COMFORTABLE. NO OTHER CONDERNS. BED IN LOW POSITION, CALL LITE IN REACH, CALLS APPROP
[2019-07-06 04:53] LABS: BASOPHILS ABSOLUTE AUTO 0.05 K/mm3 (0.00-0.23); BASOPHILS PERCENT AUTO 1 % (0-2); EOSINOPHILS ABSOLUTE AUTO 0.38 K/mm3 (0.00-0.68); EOSINOPHILS PERCENT AUTO 6 % (0-6); Hematocrit 30.7 % (37.0-53.0); Hemoglobin 9.5 g/dL (13.5-17.5); IMMATURE GRAN ABSOLUTE AUTO 0.03 K/mm3 (0.00-0.10); IMMATURE GRAN PERCENT AUTO 0 % (0-1); LYMPHOCYTES ABSOLUTE AUTO 1.88 K/mm3 (0.84-5.20); LYMPHOCYTES PERCENT AUTO 27 % (21-46); MONOCYTES ABSOLUTE AUTO 0.68 K/mm3 (0.16-1.47); MONOCYTES PERCENT AUTO 10 % (4-13); Mean Corpuscular HGB 27.5 pg (26.0-34.0); Mean Corpuscular HGB Conc 30.9 g/dL (31.5-36.5); Mean Corpuscular Volume 89 fL (80-100); NEUTROPHILS ABSOLUTE AUTO 3.83 K/mm3 (1.96-9.15); NEUTROPHILS PERCENT AUTO 56 % (41-73); Platelet Count 230 K/mm3 (150-400); RDW Standard Deviation 45.1 fL (35.1-46.3); Red Blood Cell Count 3.45 M/mm3 (4.30-5.90); White Blood Cell Count 6.85 K/mm3 (4.00-11.30)
[2019-07-06 05:07] LABS: Bun/Creatinine Ratio 12.6 (12.0-20.0); Calcium, Blood 8.5 mg/dL (8.5-10.1); Creatinine, Blood 2.23 mg/dL (0.60-1.20); Phosphorus, Blood 4.2 mg/dL (2.5-4.9); Potassium, Blood 4.3 mmol/L (3.5-5.5)
--- NOTE | 2019-07-06 06:46 | NUR ---
SHIFT SUMMARY PT SLEEPING IN ROOM COMFORTABLY AT THIS TIME. NO ACIYE CHANGES IN STATUS T/O NIGHT. PT SLEPT WELL AFTER BIPAP SETTINGS ADJUSTED BY RT. RESP EVEN UNLABORED ON BIPAP W/ SATS >92%. PT REPORTED SOB EARLY ON IN SHIFT REFUSED TO WEAR CPAP, REPORTED "MY HOME MACHINE KICKS IN WHEN I STOP BREATHING AT NIGHT" AFTER DISCUSSION WITH RT, PT CHANGED TO BIPAP W/ NEW SETTINGS. DENIED CP T/O NIGHT. PT USED URINAL IN BED TO VOID. CALL LIGHT IN REACH.
--- NOTE | 2019-07-06 08:23 | NUR ---
AM NOTE. ASSUMED CARE OF PT APROX 0700. PT IS A&Ox4 AND SBA IN THE ROOM. PT WAS ADMITTED FOR CHF EXAC AND AFIB RVR. PT IS CURRENTLY IN AFIB IN THE 70'S-90'S. PT DENIES CHEST PAIN/PRESSURE. PT USED BIPAP ALL NIGHT TO SLEEP. PT'S L/S DIM T/O O2 SATS ARE >93% ON RA. 2+ EDEMA IS NOTED TO THE PT'S BLE, BLE ARE RED/DUSKY AND PAINFUL TO TOUCH. BT PRESENT AND NORMOACTIVE, ABD IS SLIGHTLY FIRM BUT NONTENDER TO PALP. PT STATES HE "FEELS A LITLLE BETTER" WILL CONTINUE TO MONITOR.
--- NOTE | 2019-07-06 16:40 | NUR ---
VISITED PT IN ROOM AND UPDATE OBTAINED FROM DR & CM. Pt well known to me from previous admission and recent stay in ICU/[facility]. Pt on bipap when I entered the room but is awake. He confirms that he remembers me from his last visit. He is getting ready for some rest/nap time this afternoon. I reviewed EMR and three dimensional map modeler/hospitalist notes. Pt may get to go home in the next 1-2 days. He confirms that he has [facility] services and plans for resume of HH on d/c. He will also be followed by high risk readmission prevention team/RT per CM meeting. Pt reports s/s much improved since admission. Visit kept short. has already reconfirmed pt's code status wishes again during this stay and pt continues to request FULL CODE status.
--- NOTE | 2019-07-06 18:15 | NUR ---
SHIFT SUMMARY. NO ACUTE NEGATIVE CHANGES NOTED THIS THIS. PT'S VS STABLE T/O SHIFT. PT DENIES CHEST PAIN/PRESSURE N/V OR SOB. PT USES BIPAP FOR SLEEP AND IS COMPLIANT WITH IT. PT WAS EVALUATED BY PT/OT TODAY. CALL LIGHT IN REACH, BED IS LOCKED AND LOW WILL CONTINUE TO MONITOR UNTIL REPORT IS GIVEN TO ONCOMING RN.
[2019-07-07 04:18] LABS: Bun/Creatinine Ratio 14.9 (12.0-20.0); Calcium, Blood 8.4 mg/dL (8.5-10.1); Creatinine, Blood 2.42 mg/dL (0.60-1.20); Magnesium, Blood 2.1 mg/dL (1.6-2.4); Potassium, Blood 4.5 mmol/L (3.5-5.5)
--- NOTE | 2019-07-07 05:32 | NUR ---
SHIFT SUMMARY PT SLEEPING IN ROOM COMFORTABLY AT THIS TIME. NO ACUTE CHANGES IN STATUS T/O NIGHT. PT DID NOT SLEEP WELL, REPORTS WAS RESTLESS MOST OF THE NIGHT. REQUESTED HOJME DOSE OF MELATONIN FOR SLEEP. PROVIDER CALLED AND PT MEDICATED PER EMAR. PT NOW SLEEPING SOUNDLY WITH BIPAP IN PLACE, RESP EVEN UNLABORED ON BIPAP W/ SATS >92%. PT WAS MEDICATED TWICE FOR PAIN PER EMAR. AND ICE PACK WAS GIVEN DURING THE NIGHT. PT VOIDED USING URINAL IN BED. DENIED OTHER NEEDS. CALL LIGHT IN REACH.
--- NOTE | 2019-07-07 08:32 | NUR ---
AM NOTE. ASSUMED CARE OF PT APROX 0700, PT IS A&Ox4 AND SBA IN THE ROOM. PT WAS ADMITTED FOR CHF EXAC AND AFIB RVR. CURRENTLY PT IS IN AFIB IN THE 90'S-100'S. PT DENIES CHEST PAIN/PRESSURE N/V OR INCREASED SOB AT THIS TIME. PT HAS BEEN USING BIPAP FOR SLEEP AND HAS TOLERATED THIS WELL. PT'S VS STABLE. PT HAS 2+ PITTING EDEMA TO HIS BLE, BLE ARE DUSKY AND PAINFUL TO TOUCH. BT PRESENT AND NORMOACTIV, ABD IS SLIGHTLY FIRM BUT NONTENDER TO PALP, PER PT HE FEELS "BLOATED OR GASSY." L/S DIM AND COARSE T/O PT IS ON RA. CALL LIGHT IN REACH, BED IS LOCKED AND LOW WILL CONTINUE TO MONITOR.
== END 2019-07-07 14:40 | disposition home health service (06) | DRG 291 ==
LOC: ER 10:29 → MEDS 10:30 → PCU 07-05 10:26
PROVIDERS: Emergency Medicine; Internal Medicine Cardiovascular Disease; ADMIT Internal Medicine
DX: I13.0 Hypertensive heart and chronic kidney disease with heart failure and stage 1 through stage 4 chronic kidney disease, or unspecified chronic kidney disease (principal); I50.43 Acute on chronic combined systolic (congestive) and diastolic (congestive) heart failure; Q23.0 Congenital stenosis of aortic valve; K86.3 Pseudocyst of pancreas; Z79.4 Long term (current) use of insulin; N18.3 Chronic kidney disease, stage 3 (moderate); I48.0 Paroxysmal atrial fibrillation; E11.22 Type 2 diabetes mellitus with diabetic chronic kidney disease; E11.51 Type 2 diabetes mellitus with diabetic peripheral angiopathy without gangrene; E83.42 Hypomagnesemia; I27.20 Pulmonary hypertension, unspecified; M35.3 Polymyalgia rheumatica; E66.9 Obesity, unspecified; Z68.34 Body mass index [BMI] 34.0-34.9, adult; I42.9 Cardiomyopathy, unspecified; G47.33 Obstructive sleep apnea (adult) (pediatric)
CPT/HCPCS: 36415; 71045; 80048; 80053; 82947; 83690; 83735; 83880; 84100; 84443; 84484; 85025; 93005; 93010; 94640; 94660; 94664; 94667; 94762; 96365; 96374; 96375; 96376; 97110; 97161; 97165; 97530; 98960; 99285-25; G0378; J1940; J3475

== ENCOUNTER 2019-07-16 18:30 | Inpatient (IN) | payer OTHER ==
[~2019-07-16] VITALS: Ht 177.8 cm; Wt 103.6 kg
[~2019-07-16 18:30] MED LIST changes: +LEVOFLOXACIN750 MG PO
[2019-07-16 19:27] LABS: BASOPHILS PERCENT AUTO 1 % (0-2); EOSINOPHILS ABSOLUTE AUTO 0.22 K/mm3 (0.00-0.68); EOSINOPHILS PERCENT AUTO 2 % (0-6); Hematocrit 35.3 % (37.0-53.0); Hemoglobin 10.8 g/dL (13.5-17.5); IMMATURE GRAN ABSOLUTE AUTO 0.07 K/mm3 (0.00-0.10); IMMATURE GRAN PERCENT AUTO 1 % (0-1); LYMPHOCYTES ABSOLUTE AUTO 2.72 K/mm3 (0.84-5.20); LYMPHOCYTES PERCENT AUTO 19 % (21-46); MONOCYTES ABSOLUTE AUTO 0.88 K/mm3 (0.16-1.47); MONOCYTES PERCENT AUTO 6 % (4-13); Mean Corpuscular HGB 26.9 pg (26.0-34.0); Mean Corpuscular HGB Conc 30.6 g/dL (31.5-36.5); Mean Corpuscular Volume 88 fL (80-100); Mean Platelet Volume 10.4 fL (9.1-12.4); NEUTROPHILS PERCENT AUTO 72 % (41-73); Platelet Count 303 K/mm3 (150-400); RDW Coefficient Variation 14.1 % (11.7-14.2); RDW Standard Deviation 45.2 fL (35.1-46.3); Red Blood Cell Count 4.01 M/mm3 (4.30-5.90); White Blood Cell Count 13.99 K/mm3 (4.00-11.30)
[2019-07-16 19:38] LABS: Albumin, Blood 2.6 g/dL (3.4-5.0); Albumin/Globulin Ratio 0.5 (0.8-1.8); Bilirubin, Total 0.6 mg/dL (0.1-1.0); Bun/Creatinine Ratio 11.5 (12.0-20.0); Calcium, Blood 8.3 mg/dL (8.5-10.1); Creatinine, Blood 1.91 mg/dL (0.60-1.20); Total Protein, Blood 7.6 g/dL (6.4-8.2); Troponin I 0.07 ng/mL (0.000-0.040)
[2019-07-17 03:48] LABS: Bun/Creatinine Ratio 14.2 (12.0-20.0); Calcium, Blood 8.4 mg/dL (8.5-10.1); Creatinine, Blood 1.97 mg/dL (0.60-1.20); Magnesium, Blood 1.9 mg/dL (1.6-2.4)
[2019-07-18 04:10] LABS: BASOPHILS ABSOLUTE AUTO 0.03 K/mm3 (0.00-0.23); BASOPHILS PERCENT AUTO 0 % (0-2); EOSINOPHILS ABSOLUTE AUTO 0.01 K/mm3 (0.00-0.68); EOSINOPHILS PERCENT AUTO 0 % (0-6); Hematocrit 33.3 % (37.0-53.0); Hemoglobin 10.5 g/dL (13.5-17.5); IMMATURE GRAN ABSOLUTE AUTO 0.11 K/mm3 (0.00-0.10); IMMATURE GRAN PERCENT AUTO 1 % (0-1); LYMPHOCYTES ABSOLUTE AUTO 1.36 K/mm3 (0.84-5.20); LYMPHOCYTES PERCENT AUTO 9 % (21-46); MONOCYTES ABSOLUTE AUTO 1.02 K/mm3 (0.16-1.47); MONOCYTES PERCENT AUTO 7 % (4-13); Mean Corpuscular HGB 26.5 pg (26.0-34.0); Mean Corpuscular HGB Conc 31.5 g/dL (31.5-36.5); Mean Platelet Volume 11.1 fL (9.1-12.4); NEUTROPHILS ABSOLUTE AUTO 12.79 K/mm3 (1.96-9.15); NEUTROPHILS PERCENT AUTO 83 % (41-73); Platelet Count 286 K/mm3 (150-400); RDW Coefficient Variation 14.3 % (11.7-14.2); RDW Standard Deviation 43.6 fL (35.1-46.3); Red Blood Cell Count 3.96 M/mm3 (4.30-5.90); White Blood Cell Count 15.32 K/mm3 (4.00-11.30)
[2019-07-18 04:14] LABS: Mean Corpuscular Volume 84 fL (80-100)
[2019-07-18 04:28] LABS: Albumin, Blood 2.6 g/dL (3.4-5.0); Anion Gap 11 mmol/L (6-16); Blood Urea Nitrogen 50 mg/dL (8-24); Bun/Creatinine Ratio 23.7 (12.0-20.0); CO2, Blood 23 mmol/L (21-32); Calcium, Blood 8.3 mg/dL (8.5-10.1); Chloride, Blood 99 mmol/L (98-108); Creatinine, Blood 2.11 mg/dL (0.60-1.20); Glomerular Filtration Rate 33 (60-); Glucose, Blood 364 mg/dL (70-99); Phosphorus, Blood 4.4 mg/dL (2.5-4.9); Potassium, Blood 4.6 mmol/L (3.5-5.5); Sodium, Blood 133 mmol/L (136-145)
[2019-07-18 04:31] LABS: Bun/Creatinine Ratio 22.1 (12.0-20.0); Calcium, Blood 8.4 mg/dL (8.5-10.1); Creatinine, Blood 2.17 mg/dL (0.60-1.20); Magnesium, Blood 2.1 mg/dL (1.6-2.4); Potassium, Blood 4.6 mmol/L (3.5-5.5); Troponin I 0.067 ng/mL (0.000-0.040)
[2019-07-19 04:53] LABS: Albumin, Blood 2.6 g/dL (3.4-5.0); Anion Gap 11 mmol/L (6-16); Blood Urea Nitrogen 55 mg/dL (8-24); Bun/Creatinine Ratio 25.5 (12.0-20.0); CO2, Blood 26 mmol/L (21-32); Calcium, Blood 8.2 mg/dL (8.5-10.1); Chloride, Blood 100 mmol/L (98-108); Creatinine, Blood 2.16 mg/dL (0.60-1.20); Glomerular Filtration Rate 33 (60-); Glucose, Blood 124 mg/dL (70-99); Phosphorus, Blood 4.3 mg/dL (2.5-4.9); Potassium, Blood 3.6 mmol/L (3.5-5.5); Sodium, Blood 137 mmol/L (136-145)
[2019-07-19 05:03] LABS: BASOPHILS ABSOLUTE AUTO 0.06 K/mm3 (0.00-0.23); BASOPHILS PERCENT AUTO 1 % (0-2); EOSINOPHILS ABSOLUTE AUTO 0.09 K/mm3 (0.00-0.68); EOSINOPHILS PERCENT AUTO 1 % (0-6); Hematocrit 31.5 % (37.0-53.0); Hemoglobin 10.3 g/dL (13.5-17.5); IMMATURE GRAN ABSOLUTE AUTO 0.07 K/mm3 (0.00-0.10); IMMATURE GRAN PERCENT AUTO 1 % (0-1); LYMPHOCYTES ABSOLUTE AUTO 2.17 K/mm3 (0.84-5.20); LYMPHOCYTES PERCENT AUTO 19 % (21-46); MONOCYTES ABSOLUTE AUTO 0.74 K/mm3 (0.16-1.47); MONOCYTES PERCENT AUTO 7 % (4-13); Mean Corpuscular HGB Conc 32.7 g/dL (31.5-36.5); Mean Corpuscular Volume 83 fL (80-100); NEUTROPHILS ABSOLUTE AUTO 8.23 K/mm3 (1.96-9.15); NEUTROPHILS PERCENT AUTO 73 % (41-73); RDW Coefficient Variation 14.4 % (11.7-14.2); RDW Standard Deviation 42.6 fL (35.1-46.3); Red Blood Cell Count 3.81 M/mm3 (4.30-5.90); White Blood Cell Count 11.36 K/mm3 (4.00-11.30)
[2019-07-19 05:04] LABS: Mean Platelet Volume 11.3 fL (9.1-12.4); Platelet Count 224 K/mm3 (150-400)
[2019-07-19 14:07] LABS: Base Excess Venous 5.8 mmol/L; Bicarbonate Venous 28.4 mmol/L (24.0-30.0); PCO2 Venous 42.7 mmHg (38-42); PO2 Venous 32.6 mmHg (38-42); pH Blood Venous 7.45 (7.34-7.37)
[2019-07-20 05:42] LABS: BASOPHILS ABSOLUTE AUTO 0.06 K/mm3 (0.00-0.23); BASOPHILS PERCENT AUTO 1 % (0-2); EOSINOPHILS ABSOLUTE AUTO 0.05 K/mm3 (0.00-0.68); EOSINOPHILS PERCENT AUTO 0 % (0-6); Hematocrit 30.4 % (37.0-53.0); Hemoglobin 9.7 g/dL (13.5-17.5); IMMATURE GRAN ABSOLUTE AUTO 0.05 K/mm3 (0.00-0.10); IMMATURE GRAN PERCENT AUTO 0 % (0-1); LYMPHOCYTES ABSOLUTE AUTO 2.22 K/mm3 (0.84-5.20); LYMPHOCYTES PERCENT AUTO 20 % (21-46); MONOCYTES ABSOLUTE AUTO 1.05 K/mm3 (0.16-1.47); MONOCYTES PERCENT AUTO 9 % (4-13); Mean Corpuscular HGB 26.5 pg (26.0-34.0); Mean Corpuscular HGB Conc 31.9 g/dL (31.5-36.5); Mean Corpuscular Volume 83 fL (80-100); NEUTROPHILS ABSOLUTE AUTO 7.76 K/mm3 (1.96-9.15); NEUTROPHILS PERCENT AUTO 70 % (41-73); Platelet Count 287 K/mm3 (150-400); RDW Coefficient Variation 14.5 % (11.7-14.2); RDW Standard Deviation 43.8 fL (35.1-46.3); Red Blood Cell Count 3.66 M/mm3 (4.30-5.90); White Blood Cell Count 11.19 K/mm3 (4.00-11.30)
[2019-07-20 06:00] LABS: Albumin, Blood 2.6 g/dL (3.4-5.0); Anion Gap 9 mmol/L (6-16); Blood Urea Nitrogen 56 mg/dL (8-24); Bun/Creatinine Ratio 24.3 (12.0-20.0); CO2, Blood 27 mmol/L (21-32); Calcium, Blood 8.4 mg/dL (8.5-10.1); Chloride, Blood 99 mmol/L (98-108); Glomerular Filtration Rate 30 (60-); Glucose, Blood 146 mg/dL (70-99); Phosphorus, Blood 4.3 mg/dL (2.5-4.9); Potassium, Blood 4.1 mmol/L (3.5-5.5); Sodium, Blood 135 mmol/L (136-145)
[2019-07-21 12:03] LABS: Bun/Creatinine Ratio 23.8 (12.0-20.0); Calcium, Blood 8.4 mg/dL (8.5-10.1); Creatinine, Blood 2.23 mg/dL (0.60-1.20); Magnesium, Blood 2.3 mg/dL (1.6-2.4); Potassium, Blood 4.4 mmol/L (3.5-5.5)
[2019-07-21 18:33] LABS: PCO2 Arterial 33.8 mmHg (35-45); pH Blood Arterial 7.45 (7.35-7.45)
[2019-07-22 03:39] LABS: Hemoglobin 9.5 g/dL (13.5-17.5)
[2019-07-22 03:55] LABS: Albumin, Blood 2.7 g/dL (3.4-5.0); Anion Gap 11 mmol/L (6-16); Blood Urea Nitrogen 59 mg/dL (8-24); Bun/Creatinine Ratio 23.9 (12.0-20.0); CO2, Blood 25 mmol/L (21-32); Calcium, Blood 8.4 mg/dL (8.5-10.1); Chloride, Blood 97 mmol/L (98-108); Creatinine, Blood 2.47 mg/dL (0.60-1.20); Glomerular Filtration Rate 28 (60-); Glucose, Blood 270 mg/dL (70-99); Magnesium, Blood 2.2 mg/dL (1.6-2.4); Phosphorus, Blood 5.4 mg/dL (2.5-4.9); Potassium, Blood 4.9 mmol/L (3.5-5.5); Sodium, Blood 133 mmol/L (136-145)
[2019-07-22 14:14] LABS: Protein, Urine Quantitative 88.4 mg/dL (0.0-11.9)
[2019-07-23 03:45] LABS: Hematocrit 27.9 % (37.0-53.0); Hemoglobin 8.8 g/dL (13.5-17.5)
[2019-07-23 04:06] LABS: Albumin, Blood 2.7 g/dL (3.4-5.0); Anion Gap 10 mmol/L (6-16); Blood Urea Nitrogen 77 mg/dL (8-24); Bun/Creatinine Ratio 26.6 (12.0-20.0); CO2, Blood 28 mmol/L (21-32); Calcium, Blood 8.3 mg/dL (8.5-10.1); Chloride, Blood 93 mmol/L (98-108); Glomerular Filtration Rate 23 (60-); Glucose, Blood 400 mg/dL (70-99); Magnesium, Blood 2.2 mg/dL (1.6-2.4); Phosphorus, Blood 5.9 mg/dL (2.5-4.9); Potassium, Blood 4.3 mmol/L (3.5-5.5); Sodium, Blood 131 mmol/L (136-145)
[2019-07-24 04:36] LABS: Hematocrit 27.8 % (37.0-53.0); Hemoglobin 8.9 g/dL (13.5-17.5)
[2019-07-24 04:53] LABS: Albumin, Blood 2.8 g/dL (3.4-5.0); Anion Gap 10 mmol/L (6-16); Blood Urea Nitrogen 89 mg/dL (8-24); Bun/Creatinine Ratio 27.6 (12.0-20.0); CO2, Blood 30 mmol/L (21-32); Calcium, Blood 8.3 mg/dL (8.5-10.1); Chloride, Blood 90 mmol/L (98-108); Creatinine, Blood 3.22 mg/dL (0.60-1.20); Glomerular Filtration Rate 21 (60-); Glucose, Blood 364 mg/dL (70-99); Magnesium, Blood 2.2 mg/dL (1.6-2.4); Phosphorus, Blood 5.3 mg/dL (2.5-4.9); Sodium, Blood 130 mmol/L (136-145)
[2019-07-25 05:56] LABS: Hematocrit 29.6 % (37.0-53.0); Hemoglobin 9.5 g/dL (13.5-17.5)
[2019-07-25 06:12] LABS: Albumin, Blood 3.1 g/dL (3.4-5.0); Anion Gap 10 mmol/L (6-16); Blood Urea Nitrogen 90 mg/dL (8-24); Bun/Creatinine Ratio 32.3 (12.0-20.0); CO2, Blood 34 mmol/L (21-32); Calcium, Blood 8.8 mg/dL (8.5-10.1); Chloride, Blood 89 mmol/L (98-108); Creatinine, Blood 2.79 mg/dL (0.60-1.20); Glomerular Filtration Rate 24 (60-); Glucose, Blood 297 mg/dL (70-99); Magnesium, Blood 2.2 mg/dL (1.6-2.4); Phosphorus, Blood 4.2 mg/dL (2.5-4.9); Potassium, Blood 3.3 mmol/L (3.5-5.5); Sodium, Blood 133 mmol/L (136-145)
[2019-07-26 05:14] LABS: Hematocrit 30.8 % (37.0-53.0); Hemoglobin 9.9 g/dL (13.5-17.5)
[2019-07-26 05:35] LABS: Albumin, Blood 3.2 g/dL (3.4-5.0); Anion Gap 10 mmol/L (6-16); Blood Urea Nitrogen 98 mg/dL (8-24); Bun/Creatinine Ratio 33.2 (12.0-20.0); CO2, Blood 36 mmol/L (21-32); Calcium, Blood 8.9 mg/dL (8.5-10.1); Chloride, Blood 86 mmol/L (98-108); Creatinine, Blood 2.95 mg/dL (0.60-1.20); Glomerular Filtration Rate 23 (60-); Glucose, Blood 357 mg/dL (70-99); Magnesium, Blood 2.2 mg/dL (1.6-2.4); Phosphorus, Blood 4.3 mg/dL (2.5-4.9); Potassium, Blood 3.8 mmol/L (3.5-5.5); Sodium, Blood 132 mmol/L (136-145)
[2019-07-26] MEDS ORDERED: Amiodarone HCl200 MG PO (12:02)
[2019-07-26] MEDS ORDERED: METO2.5 PO (12:03)
[2019-07-26] MEDS ORDERED: ELIQUIS5 MG PO (12:03)
== END 2019-07-26 15:27 | disposition home health service (06) | DRG 291 ==
LOC: ER 18:30 → PCU 18:31 → MEDS 07-24 13:32
PROVIDERS: Emergency Medicine; Internal Medicine; Internal Medicine Nephrology; ADMIT Hospitalist
DX: I13.0 Hypertensive heart and chronic kidney disease with heart failure and stage 1 through stage 4 chronic kidney disease, or unspecified chronic kidney disease (principal); J96.01 Acute respiratory failure with hypoxia; N17.0 Acute kidney failure with tubular necrosis; I50.42 Chronic combined systolic (congestive) and diastolic (congestive) heart failure; N18.4 Chronic kidney disease, stage 4 (severe); J98.11 Atelectasis; E87.1 Hypo-osmolality and hyponatremia; J84.9 Interstitial pulmonary disease, unspecified; E11.40 Type 2 diabetes mellitus with diabetic neuropathy, unspecified; J44.9 Chronic obstructive pulmonary disease, unspecified; Z79.4 Long term (current) use of insulin; M35.3 Polymyalgia rheumatica; I48.0 Paroxysmal atrial fibrillation; E66.01 Morbid (severe) obesity due to excess calories; G47.33 Obstructive sleep apnea (adult) (pediatric); E11.51 Type 2 diabetes mellitus with diabetic peripheral angiopathy without gangrene; I27.20 Pulmonary hypertension, unspecified; Z68.34 Body mass index [BMI] 34.0-34.9, adult; E11.22 Type 2 diabetes mellitus with diabetic chronic kidney disease; D63.1 Anemia in chronic kidney disease; I08.0 Rheumatic disorders of both mitral and aortic valves; E88.09 Other disorders of plasma-protein metabolism, not elsewhere classified; E11.65 Type 2 diabetes mellitus with hyperglycemia; K86.89 Other specified diseases of pancreas; Z87.891 Personal history of nicotine dependence
CPT/HCPCS: 36415; 36600; 51798; 71045; 71046; 76770; 80048; 80053; 80069; 81050; 82803; 82947; 83735; 83880; 84132; 84145; 84156; 84484; 85014; 85018; 85025; 93005; 93010; 94640; 94660; 94760; 94761; 94762; 96374; 96375; 97116; 97162; 97530; 99285-25; C1751; J0456; J0696; J1940; J2405; J2930; J7050; J7512

== ENCOUNTER 2019-08-03 09:31 | Emergency (ER) | payer OTHER ==
[~2019-08-03] VITALS: Ht 175.3 cm; Wt 106.1 kg
[~2019-08-03 09:31] MED LIST changes: +Amiodarone HCl200 MG PO; +METO2.5 PO
[2019-08-03 11:13] LABS: BASOPHILS ABSOLUTE AUTO 0.04 K/mm3 (0.00-0.23); BASOPHILS PERCENT AUTO 0 % (0-2); EOSINOPHILS ABSOLUTE AUTO 0.23 K/mm3 (0.00-0.68); EOSINOPHILS PERCENT AUTO 2 % (0-6); Hematocrit 34.2 % (37.0-53.0); Hemoglobin 10.4 g/dL (13.5-17.5); IMMATURE GRAN ABSOLUTE AUTO 0.06 K/mm3 (0.00-0.10); IMMATURE GRAN PERCENT AUTO 1 % (0-1); LYMPHOCYTES ABSOLUTE AUTO 1.17 K/mm3 (0.84-5.20); LYMPHOCYTES PERCENT AUTO 10 % (21-46); MONOCYTES ABSOLUTE AUTO 0.71 K/mm3 (0.16-1.47); MONOCYTES PERCENT AUTO 6 % (4-13); Mean Corpuscular HGB 25.3 pg (26.0-34.0); Mean Corpuscular HGB Conc 30.4 g/dL (31.5-36.5); Mean Corpuscular Volume 83 fL (80-100); Mean Platelet Volume 11.3 fL (9.1-12.4); NEUTROPHILS ABSOLUTE AUTO 9.89 K/mm3 (1.96-9.15); NEUTROPHILS PERCENT AUTO 82 % (41-73); Platelet Count 237 K/mm3 (150-400); RDW Standard Deviation 45.3 fL (35.1-46.3); Red Blood Cell Count 4.11 M/mm3 (4.30-5.90)
[2019-08-03 11:33] LABS: Albumin/Globulin Ratio 0.7 (0.8-1.8); Bilirubin, Total 0.4 mg/dL (0.1-1.0); Bun/Creatinine Ratio 20.6 (12.0-20.0); Calcium, Blood 8.7 mg/dL (8.5-10.1); Creatinine, Blood 2.04 mg/dL (0.60-1.20); Globulin, Blood 4.5 g/dL (2.2-4.0); Potassium, Blood 4.1 mmol/L (3.5-5.5); Total Protein, Blood 7.5 g/dL (6.4-8.2); Troponin I 0.109 ng/mL (0.000-0.040)
== END 2019-08-03 15:05 | disposition home or self-care (01) ==
LOC: ER 09:31
PROVIDERS: Emergency Medicine
DX: J81.0 Acute pulmonary edema (principal); J44.9 Chronic obstructive pulmonary disease, unspecified; E11.9 Type 2 diabetes mellitus without complications; I48.0 Paroxysmal atrial fibrillation; I11.0 Hypertensive heart disease with heart failure; I50.9 Heart failure, unspecified; Z91.038 Other insect allergy status; Z88.0 Allergy status to penicillin; Z88.8 Allergy status to other drugs, medicaments and biological substances; Z79.899 Other long term (current) drug therapy; Z79.4 Long term (current) use of insulin; Z79.51 Long term (current) use of inhaled steroids; Z79.01 Long term (current) use of anticoagulants
CPT/HCPCS: 36415; 71046; 80053; 83880; 84484; 85025; 93005; 93010; 96374; 99284-25

== ENCOUNTER 2019-08-09 03:46 | Inpatient (IN) | payer OTHER ==
[~2019-08-09] VITALS: Ht 175.3 cm; Wt 61.2 kg
[2019-08-09 04:29] LABS: BASOPHILS ABSOLUTE AUTO 0.02 K/mm3 (0.00-0.23); BASOPHILS PERCENT AUTO 0 % (0-2); EOSINOPHILS ABSOLUTE AUTO 0.01 K/mm3 (0.00-0.68); EOSINOPHILS PERCENT AUTO 0 % (0-6); Hematocrit 32.3 % (37.0-53.0); Hemoglobin 10.1 g/dL (13.5-17.5); IMMATURE GRAN ABSOLUTE AUTO 0.02 K/mm3 (0.00-0.10); IMMATURE GRAN PERCENT AUTO 0 % (0-1); LYMPHOCYTES ABSOLUTE AUTO 0.65 K/mm3 (0.84-5.20); LYMPHOCYTES PERCENT AUTO 10 % (21-46); MONOCYTES PERCENT AUTO 6 % (4-13); Mean Corpuscular HGB 24.9 pg (26.0-34.0); Mean Corpuscular HGB Conc 31.3 g/dL (31.5-36.5); Mean Platelet Volume 10.7 fL (9.1-12.4); NEUTROPHILS ABSOLUTE AUTO 5.43 K/mm3 (1.96-9.15); NEUTROPHILS PERCENT AUTO 83 % (41-73); Platelet Count 132 K/mm3 (150-400); RDW Standard Deviation 46.5 fL (35.1-46.3); Red Blood Cell Count 4.05 M/mm3 (4.30-5.90); White Blood Cell Count 6.53 K/mm3 (4.00-11.30)
[2019-08-09 04:30] LABS: Mean Corpuscular Volume 80 fL (80-100)
[2019-08-09 04:49] LABS: Albumin, Blood 2.7 g/dL (3.4-5.0); Albumin/Globulin Ratio 0.6 (0.8-1.8); Bilirubin, Total 0.7 mg/dL (0.1-1.0); Bun/Creatinine Ratio 17.5 (12.0-20.0); Calcium, Blood 8.1 mg/dL (8.5-10.1); Creatinine, Blood 2.34 mg/dL (0.60-1.20); Globulin, Blood 4.6 g/dL (2.2-4.0); Potassium, Blood 3.8 mmol/L (3.5-5.5); Total Protein, Blood 7.3 g/dL (6.4-8.2); Troponin I 0.286 ng/mL (0.000-0.040)
--- NOTE | 2019-08-09 07:26 | NUR ---
WENT TO ER TO VISIT PT AND RT WAS SLATED TO GO VISIT PT IN THE HOME TODAY. PER PT HAD INCREASED SOB AND WOB STARTING AT ROUGHLY 0200 THIS MORNING BUT HAS BEEN SLOWLY ESTHER "BACKWARD" SINCE OUR FIRST INTERACTION OVER A MONTH AGO IN ICU. SHE MENTIONED THAT SHE WILL BE TALKING WITH PALLIATIVE CARE WHILE HERE. SHE AND I HAD A VERY GOOD DISCUSSION REGARDING THIS AND SHE FEELS THAT HOSPICE/ OR SOME COMOFORT MEASURES WOULD BE A GOOD IDEA SHE FEARS HIM SUFFERING OR GOING [place] TO THE POINT IS TOO LATE TO HELP HIM. SHE KNOWS THIS COULD MEAN END OF LIFE FOR HER OR THAT HOWEVER SLIM A CHANCE HE COULD IMPROVE SHE WOULD BE AT [place] WITH EITHER LONG HE IS COMFORTABLE. IT APPEARS SHE HAS A GOOD MINDSET AND IS VERY OPEN TO DISCUSSION. GIVEN CURRENT STATE OF PT IT WOULD BE A GOOD IDEA FOR OUR PROGRAM TO CONTINUE TO FOLLOW TO ENSURE BEST OUTCOME FOR PT WHICH EVER IT SHOULD BE.
[2019-08-09 08:52] LABS: Influenza A Negative (NEGATIVE); Influenza B Positive (NEGATIVE)
[2019-08-09 09:10] LABS: Glucose, Blood 555 mg/dL (70-99)
--- NOTE | 2019-08-09 19:31 | NUR ---
PT ARRIVED TO ROOM FROM ER. REPORT FROM JESSICA. PT APPEARS ILL NOT HIS CHEERFUL SELF. C/O OF "LOSING AIR" SATS FINE, O2 IN PLACE, SPEAKING IN FULL SENTANCES, NO TRIPODDING OR LABORED BREATHING. RT CALLED FOR BIPAP SETUP. WOUNDS NOTED ON BILAT LOWER EXT. DRESSINGS REMOVED - LT KNEE LOOKS INFECTED, LLE REDDENED AND BLISTERY NEAR WEEPING EDEMA, RT FOOT WOUND LOOKS TO BE HEALING WELL, RLE DRSG SOILED AND NEEDS TO BE CHANGED. ORDER FOR ATIVAN OBTAINED FOR ANXIETY. REPORT GIVEN TO KELLY/
[2019-08-09 21:18] LABS: Anion Gap 11 mmol/L (6-16); Blood Urea Nitrogen 52 mg/dL (8-24); Bun/Creatinine Ratio 21.8 (12.0-20.0); CO2, Blood 32 mmol/L (21-32); Calcium, Blood 8.5 mg/dL (8.5-10.1); Chloride, Blood 87 mmol/L (98-108); Creatinine, Blood 2.39 mg/dL (0.60-1.20); Glomerular Filtration Rate 29 (60-); Potassium, Blood 3.8 mmol/L (3.5-5.5); Sodium, Blood 130 mmol/L (136-145)
[2019-08-09 21:20] LABS: Glucose, Blood 574 mg/dL (70-99)
[2019-08-10 03:50] LABS: BASOPHILS PERCENT AUTO 0 % (0-2); EOSINOPHILS PERCENT AUTO 0 % (0-6); Hemoglobin 9.4 g/dL (13.5-17.5); IMMATURE GRAN ABSOLUTE AUTO 0.01 K/mm3 (0.00-0.10); IMMATURE GRAN PERCENT AUTO 0 % (0-1); LYMPHOCYTES ABSOLUTE AUTO 0.44 K/mm3 (0.84-5.20); LYMPHOCYTES PERCENT AUTO 13 % (21-46); MONOCYTES ABSOLUTE AUTO 0.41 K/mm3 (0.16-1.47); MONOCYTES PERCENT AUTO 12 % (4-13); Mean Corpuscular HGB 24.6 pg (26.0-34.0); Mean Corpuscular HGB Conc 31.3 g/dL (31.5-36.5); Mean Corpuscular Volume 79 fL (80-100); Mean Platelet Volume 11.5 fL (9.1-12.4); NEUTROPHILS ABSOLUTE AUTO 2.59 K/mm3 (1.96-9.15); NEUTROPHILS PERCENT AUTO 75 % (41-73); Platelet Count 131 K/mm3 (150-400); RDW Coefficient Variation 15.2 % (11.7-14.2); RDW Standard Deviation 43.9 fL (35.1-46.3); Red Blood Cell Count 3.82 M/mm3 (4.30-5.90); White Blood Cell Count 3.45 K/mm3 (4.00-11.30)
[2019-08-10 04:15] LABS: Albumin, Blood 2.5 g/dL (3.4-5.0); Albumin/Globulin Ratio 0.6 (0.8-1.8); Bilirubin, Total 0.6 mg/dL (0.1-1.0); Bun/Creatinine Ratio 22.9 (12.0-20.0); Calcium, Blood 8.6 mg/dL (8.5-10.1); Creatinine, Blood 2.4 mg/dL (0.60-1.20); Globulin, Blood 4.3 g/dL (2.2-4.0); Potassium, Blood 3.7 mmol/L (3.5-5.5); Total Protein, Blood 6.8 g/dL (6.4-8.2)
--- NOTE | 2019-08-10 06:46 | NUR ---
a+o, wounds wrapped for comfort and protection, cbg getting lower but still higher than goal, staying in 90's with 2L via NC, snack and drinks provided as well as prescribed medications and multiple changes due to incontinence, currently sitting on side of bed after being changed, call light in reach, no acute changes noted during shift, will continue to monitor and treat until share bsr with day shift and pt
--- NOTE | 2019-08-10 13:47 | NUR ---
Kaushik was OOB to the chair at least once or twice this morning, for meals and linen change. Short of breath with minimal activity. At this time, the pt is asking for a breathing treatment. He is lying down in bed, HOB barely elevated and his is at the bedside.
--- NOTE | 2019-08-10 13:56 | NUR ---
Pt is known to this marketing underwriter from previous hospital stay. Pt is resting in bed upon arrival. Pt's Maria is at bedside. Pt reports manged pain and struggling with SOB and anxiety. Pt reports dyspnea causes anxiety. Engaged in theapeutic discussion regarding goals of care. Pt reports living at home with his Maria who is Pt's primary caregiver. Pt reports he stays in bed with the exception of using the BSC. Pt has been experiencing intermittent incontinence as well. Pt inquires the difference between Palliative Care and Hospice. Educated Pt on Palliative Care and Hospice with V/U made by both Pt and . Pt reports being a and would like to obtain Palliative Care services through the [facility]. Offered to contact the Palliative Care Team at [facility] and Pt's denies need at this time. Pino reports she will contact Pt's PCP first and if she does not have success she will contact this RN for assistance. Pt reports he is not ready for end of life care yet. Educated Pt on the importance of planning for the future of his disease process and eventually Hospice may need to be considered. V/U made by Pt and . Pt is requesting Ativan for his anxiety. Discussed PRN breathing treatments as well. Pt expresses interest and is agreeable if appropriate. No other concerns reported at this time. Spoke with Pt's bedside RN Mira, discussed case, and Pt's request for Ativan. Mira will offer Ativan and relay request to hospitalist for PRN breathing treatments. Palliative Care will remain available for theapeutic visits.
--- NOTE | 2019-08-10 14:51 | NUR ---
Call to Dr. Maciel after reviewing the home medication list with Kaushik's , and confirming which medications he takes. Medications will be ordered at Dr. Maciel's discretion. the pt appears to be sleeping in a darkened room at this time.
--- NOTE | 2019-08-10 17:22 | NUR ---
The pt has been alert, oriented and cooperative. OOB to chair for breakfast and dinner. Blood sugars better controlled today than last shift. Has not had complaints of pain, but has c/o dyspnea this afternoon, relieved with breathing treatments. Heart rhythm has been afib, this morning mainly in the low 100 bpm range, but increasing and resting around 120-125 since noon time, but the pt is without related dypnea or discomfort. He is currently lying in bed, appears to be sleeping comfortably, and heart rate is 125 bpm, respirations around 15-20/min. Spo2 all day has been greater than 90% on continuous oxymetry while usign oxygen 3 l/min. States at home he uses 2-3 l/min.
--- NOTE | 2019-08-10 21:18 | NUR ---
received report from day shift, a+o, sitting on side of bed needing to be changed again (frequent large voids), changed depends and linens, assisted back into bed, asked about anx medication, day shift said he had not needed it but once, pt stated that he only asked for it when it was due and that he wanted it either higher dose or more frequent, hospitalist stated that it was not on his home meds and that she was uncomfortable changing the dose prescribed by his regular dr, dr stated that the dr assigned to the pt did not want him receiving regular insulin at night to just treat his high cbg with long acting insulin, the dr also said to monitor his high hr and to report back to her if it did not go down, still monitoring hr which is going down, flushe IV no s/sx of infection or infiltration, vss, assessment completed, will change dressings and apply creame when able to relaxe on bed, took medication with no complicatins, currently sitting up in bed talking on phone, will continue to monitor and treat as prescribed and appropriate
--- NOTE | 2019-08-11 00:40 | NUR ---
DRESSING CHANGE BOTH LEGS, BOTH WOUNDS APPEAR TO BE IMPROVING, APPLIED CREAM TO BOTH LEGS AND COVERED WITH KERLEX AND A COTTON MESH TO PROTECT THE SKIN, PROCEDURE TOLERATED WELL, VERY SOB, BREATHING TREATMENT HELPED BUT STATED STILL FEELING WEAK, HELPED BACK INTO BED, ADJUSTED HOB AND BLANKETS PER PT REQUEST
[2019-08-11 03:29] LABS: BASOPHILS ABSOLUTE AUTO 0.01 K/mm3 (0.00-0.23); BASOPHILS PERCENT AUTO 0 % (0-2); EOSINOPHILS ABSOLUTE AUTO 0.01 K/mm3 (0.00-0.68); EOSINOPHILS PERCENT AUTO 0 % (0-6); Hematocrit 30.6 % (37.0-53.0); Hemoglobin 9.3 g/dL (13.5-17.5); IMMATURE GRAN ABSOLUTE AUTO 0.02 K/mm3 (0.00-0.10); IMMATURE GRAN PERCENT AUTO 0 % (0-1); LYMPHOCYTES ABSOLUTE AUTO 0.68 K/mm3 (0.84-5.20); LYMPHOCYTES PERCENT AUTO 11 % (21-46); MONOCYTES ABSOLUTE AUTO 0.35 K/mm3 (0.16-1.47); MONOCYTES PERCENT AUTO 6 % (4-13); Mean Corpuscular HGB 24.2 pg (26.0-34.0); Mean Corpuscular HGB Conc 30.4 g/dL (31.5-36.5); Mean Corpuscular Volume 80 fL (80-100); Mean Platelet Volume 11.6 fL (9.1-12.4); NEUTROPHILS ABSOLUTE AUTO 5.04 K/mm3 (1.96-9.15); NEUTROPHILS PERCENT AUTO 83 % (41-73); Platelet Count 131 K/mm3 (150-400); RDW Coefficient Variation 15.5 % (11.7-14.2); RDW Standard Deviation 45.1 fL (35.1-46.3); Red Blood Cell Count 3.84 M/mm3 (4.30-5.90); White Blood Cell Count 6.11 K/mm3 (4.00-11.30)
[2019-08-11 03:46] LABS: Albumin, Blood 2.5 g/dL (3.4-5.0); Albumin/Globulin Ratio 0.6 (0.8-1.8); Bilirubin, Total 0.4 mg/dL (0.1-1.0); Bun/Creatinine Ratio 24.8 (12.0-20.0); Calcium, Blood 8.1 mg/dL (8.5-10.1); Creatinine, Blood 2.38 mg/dL (0.60-1.20); Globulin, Blood 3.9 g/dL (2.2-4.0); Potassium, Blood 3.5 mmol/L (3.5-5.5); Total Protein, Blood 6.4 g/dL (6.4-8.2)
--- NOTE | 2019-08-11 06:43 | NUR ---
more lethargic than earlier in shift, states he is sob, tried various interventions, o2 level remained above 92%, currently resting quietly, 2L via nc, call light in reach, bed in low position, shared bsr with pt and day nurse
--- NOTE | 2019-08-11 07:30 | NUR ---
Call to Dr. Maciel regarding high blood sugar this morning. No additional insulin to be given other than what is currently ordered. She will change the sliding scale order.
--- NOTE | 2019-08-11 10:07 | NUR ---
Pt states that he DOES want to have chest compressions and intubation/ventilatory support if needed. His is at the bedside, and witnessed his response. Clair Bermeo, RN with palliative care is also present. Will notify Dr. Maciel when she arrives to round.
--- NOTE | 2019-08-11 11:05 | NUR ---
Received call from BRENDON Atkins that Pt's is requesting a visit. Pt is resting in bed upon arrival. Pt is requesting to use BSC and this RN assisted bedside BRENDON Meyers with transfering Pt to BSC. Pt's Maria inquires about DNR band placed on Pt's wrist. Pt is initialy reuesting to have it removed and to have his code status changed. After Pt is finished with BSC discussed code status. Educated on life sustaining measures including risk factors and implications. Pt reports he would like to stay a DNR for now and wants to process information further before deciding to change his code status. Pt's Pino reports speaking with Pt's PCP regarding receiving Palliative Care services through the [facility]. She reports PCP is agreeable and will consider request after visiting Pt after discharge from hospital. Discussed case further with bedside BRENDON Meyers and Dr Maciel. Dr Maciel has ordered blood gas. No other concerns reported at this time. Palliative Care will remain available.
[2019-08-11 11:11] LABS: PCO2 Arterial 46.6 mmHg (35-45); PO2 Arterial 60.1 mmHg (80-100); pH Blood Arterial 7.45 (7.35-7.45)
--- NOTE | 2019-08-11 13:18 | NUR ---
Assisted back to bed after dangling at the bedside for eating peaches. STates that he is having some upset stomach, and requesting ondansetron, which Maria states that he takes at home for the same reason. Spo2 is 95-96% on 2 l/min O2 delivery. Pt states that he uses 3 l/min at home , states "but my oxygen tubing is 60 feet long".
--- NOTE | 2019-08-11 13:26 | NUR ---
Kaushik and his Maria initiated a conversation with me this afternoon, and stated that they had been talking about it and decided that they would like for Kaushik to be a "FULL CODE". Call to Dr. Maciel and the code status was changed to reflect the pt's wishes at this time.
--- NOTE | 2019-08-11 13:51 | NUR ---
Kaushik appears to be sleeping in the room, alone. Heart rate 95 per telemetry, and spo2 95% per continuous oxymetry. Respirations are even and unlabored at this time.
[2019-08-12 04:13] LABS: BASOPHILS ABSOLUTE AUTO 0.01 K/mm3 (0.00-0.23); BASOPHILS PERCENT AUTO 0 % (0-2); EOSINOPHILS ABSOLUTE AUTO 0.08 K/mm3 (0.00-0.68); EOSINOPHILS PERCENT AUTO 2 % (0-6); Hematocrit 30.2 % (37.0-53.0); Hemoglobin 9.1 g/dL (13.5-17.5); IMMATURE GRAN ABSOLUTE AUTO 0.03 K/mm3 (0.00-0.10); IMMATURE GRAN PERCENT AUTO 1 % (0-1); LYMPHOCYTES ABSOLUTE AUTO 1.61 K/mm3 (0.84-5.20); LYMPHOCYTES PERCENT AUTO 30 % (21-46); MONOCYTES ABSOLUTE AUTO 0.31 K/mm3 (0.16-1.47); MONOCYTES PERCENT AUTO 6 % (4-13); Mean Corpuscular HGB 24.1 pg (26.0-34.0); Mean Corpuscular HGB Conc 30.1 g/dL (31.5-36.5); Mean Corpuscular Volume 80 fL (80-100); Mean Platelet Volume 11.9 fL (9.1-12.4); NEUTROPHILS ABSOLUTE AUTO 3.39 K/mm3 (1.96-9.15); NEUTROPHILS PERCENT AUTO 62 % (41-73); Platelet Count 147 K/mm3 (150-400); RDW Coefficient Variation 15.7 % (11.7-14.2); RDW Standard Deviation 45.1 fL (35.1-46.3); Red Blood Cell Count 3.78 M/mm3 (4.30-5.90); White Blood Cell Count 5.43 K/mm3 (4.00-11.30)
[2019-08-12 04:29] LABS: Calcium, Blood 8.1 mg/dL (8.5-10.1); Creatinine, Blood 2.44 mg/dL (0.60-1.20); Potassium, Blood 3.5 mmol/L (3.5-5.5)
--- NOTE | 2019-08-12 05:30 | NUR ---
a+o, poor appitite, changed to full code from DNR, since not eating did not provide lantus coverage, monitored blood sugar through night ended up 143 at 433, afib at 95 on tele, vss, call light in reach, sat up on side of bed to eat a snack this am, currently resting quietly in bed with lights out and a diet drink, dressings cdi, fartun saline locked with no s/sx of infecion or infiltration, remains sob and anxioud but more energetic than last night, remains inconteinet with large voids, call light in reach able to make needs known, will continue to monitor and treat as appropriate until share bsr with staff and pt who is coopertive
--- NOTE | 2019-08-12 17:43 | NUR ---
SHIFT SUMMARY PT ALERT AND ORIENTED. VS STABLE. O2 SATS REMAIN ABOVE 90% ON 2L NC. BP STABE. HR AFIB 90'S. TELEMETRY HAS BEEN DC'D. PT DENIES ANY PAIN. STATUS CHANGED TO MEDICAL. PT HAS BEEN CONTINENT OF URINE THIS SHIT. PT REPORT IMPROVED APPETITE. WILL CONTINUE TO MONITOR AND REPORT TO ONCOMING RN. CALL LIGHT IN REACH.
[2019-08-13 04:21] LABS: BASOPHILS ABSOLUTE AUTO 0.01 K/mm3 (0.00-0.23); BASOPHILS PERCENT AUTO 0 % (0-2); EOSINOPHILS ABSOLUTE AUTO 0.13 K/mm3 (0.00-0.68); EOSINOPHILS PERCENT AUTO 2 % (0-6); Hematocrit 28.3 % (37.0-53.0); Hemoglobin 8.7 g/dL (13.5-17.5); IMMATURE GRAN ABSOLUTE AUTO 0.02 K/mm3 (0.00-0.10); IMMATURE GRAN PERCENT AUTO 0 % (0-1); LYMPHOCYTES ABSOLUTE AUTO 1.38 K/mm3 (0.84-5.20); LYMPHOCYTES PERCENT AUTO 24 % (21-46); MONOCYTES ABSOLUTE AUTO 0.35 K/mm3 (0.16-1.47); MONOCYTES PERCENT AUTO 6 % (4-13); Mean Corpuscular HGB 24.9 pg (26.0-34.0); Mean Corpuscular HGB Conc 30.7 g/dL (31.5-36.5); Mean Corpuscular Volume 81 fL (80-100); Mean Platelet Volume 10.9 fL (9.1-12.4); NEUTROPHILS PERCENT AUTO 67 % (41-73); Platelet Count 124 K/mm3 (150-400); RDW Coefficient Variation 15.9 % (11.7-14.2); RDW Standard Deviation 46.4 fL (35.1-46.3); Red Blood Cell Count 3.49 M/mm3 (4.30-5.90); White Blood Cell Count 5.69 K/mm3 (4.00-11.30)
[2019-08-13 04:40] LABS: Bun/Creatinine Ratio 23.4 (12.0-20.0); Calcium, Blood 7.9 mg/dL (8.5-10.1); Creatinine, Blood 2.35 mg/dL (0.60-1.20); Potassium, Blood 3.5 mmol/L (3.5-5.5)
--- NOTE | 2019-08-13 05:35 | NUR ---
SHIFT SUMMARY PATIENT PLEASENT AND COOPERATIVE THROUGHOUT THE NIGHT. PATIENT A ONE ASSIST TO THE BSC AND TO SIT AT THE EGE OF THE BED. PATIENT APPEARED TO SLEEP WELL THROUGHOUT MOST OF THE NIGHT. PATIENT ON 2L VIA N/C. VITAL SIGNS CAHRTED. DRESSINGS TO BLE CHAGED LAST NIGHT. PATIENT CURRENTLY SITTING UP AT THE EGDE OF THE BED. PATIENT REPORTS HE FEELS LIKE HE IS BREATHING BETTER. WILL CONTINUE TO MONITOR PATIENT AND REPORT TO ONCOMING RN.
--- NOTE | 2019-08-13 17:06 | NUR ---
SHIFT SUMMARY PT A&Ox4. CALM AND COOPERATIVE WITH CARE. PT UP TO ECLINER/BSC WITH 1 PERSON ASSIT. SOB WITH EXERTION, SPO2 >94% ON 2L O2 VIA NC; HOME DOSE. PT DENIES PAIN AND NASUEA T/O SHIFT. DRESSING CHANGED TO BLE; WOUNDS CLEANED, DRIED, MEDICATED AND REDRESSED. MEDICATIONS WITH APPLECAUSE. VSS. NO OTHER ACUTE CHANGES NOTED. PT TRANSFERRING TO ROOM 340. REPORT GIVEN TO RN RECEIVING PT.
--- NOTE | 2019-08-13 18:20 | NUR ---
shift summary patient is alert and oriented, pleasant. he states that he is feeling rough due to the flu. but he is in the right place. he does note that he is feeling slightly better than when he came in.
[2019-08-14 05:29] LABS: BASOPHILS ABSOLUTE AUTO 0.03 K/mm3 (0.00-0.23); BASOPHILS PERCENT AUTO 1 % (0-2); EOSINOPHILS ABSOLUTE AUTO 0.14 K/mm3 (0.00-0.68); EOSINOPHILS PERCENT AUTO 2 % (0-6); Hematocrit 29.6 % (37.0-53.0); Hemoglobin 9.1 g/dL (13.5-17.5); IMMATURE GRAN ABSOLUTE AUTO 0.02 K/mm3 (0.00-0.10); IMMATURE GRAN PERCENT AUTO 0 % (0-1); LYMPHOCYTES ABSOLUTE AUTO 1.08 K/mm3 (0.84-5.20); LYMPHOCYTES PERCENT AUTO 18 % (21-46); MONOCYTES ABSOLUTE AUTO 0.32 K/mm3 (0.16-1.47); MONOCYTES PERCENT AUTO 5 % (4-13); Mean Corpuscular HGB 24.7 pg (26.0-34.0); Mean Corpuscular HGB Conc 30.7 g/dL (31.5-36.5); Mean Corpuscular Volume 80 fL (80-100); NEUTROPHILS PERCENT AUTO 74 % (41-73); Platelet Count 151 K/mm3 (150-400); RDW Coefficient Variation 15.9 % (11.7-14.2); RDW Standard Deviation 45.5 fL (35.1-46.3); Red Blood Cell Count 3.69 M/mm3 (4.30-5.90); White Blood Cell Count 5.99 K/mm3 (4.00-11.30)
--- NOTE | 2019-08-14 05:37 | NUR ---
AUTOMOTIVE FUEL INJECTION SERVICER SUMMARY PT A/O X4. GETS UP WITH 1 ASSIST TO BEDSIDE COMMODE. PLEASANT AND COOPERATIVE. PT WOKE UP WITH CONGESTED COUGH, I CALLED RT TO GIVE PT A BREATHING TREATMENT. PT SEEMED MUCH BETTER AND DIDN'T COUGH MUCH AFTER THE BREATHING TREATMENT. CURRENTLY ON 2 L O2 NASAL CANNULA WITH CONT PULSE OX. NO ACUTE CHANGES. VSS, WILL CONTINUE TO MONITOR. PT DENIES PAIN, NAUSEA AND OTHER DISCOMFORTS.
[2019-08-14 05:54] LABS: Bun/Creatinine Ratio 21.6 (12.0-20.0); Calcium, Blood 8.1 mg/dL (8.5-10.1); Creatinine, Blood 2.08 mg/dL (0.60-1.20); Potassium, Blood 3.3 mmol/L (3.5-5.5)
--- NOTE | 2019-08-14 13:07 | NUR ---
WOUND CARE, CHANGED BILAT LEG WOUND DRESSING AND LEFT KNEE USEING CLEAN TECHNIQUE, THE PT TOLERATED THE PROCEDURE WELL
--- NOTE | 2019-08-14 16:17 | NUR ---
PT IS A/OX3, PLEASANT AND COOPERATIVE, DUSKY IN COLOR, THE PT IS UP WITH MINIMAL ASSIST TO THE CHAIR, THE PT WAS UP INTO THE CHAIR FOR MEALS, THE PT IS SOB WITH MINIMAL ACTIVITY, THE PT DENIED ANY PAIN T/O THE DAY, PTS LEG DRESSINGS WERE CHANGED, PT TOLERATED WELL, PT WAS AT THE BEDSIDE T/O THE MORNING, CALL LIGHT IN REACH, WILL, CONTINUE TO MONITOR AND ASSESS FOR CHANGES
[2019-08-15 05:27] LABS: BASOPHILS ABSOLUTE AUTO 0.02 K/mm3 (0.00-0.23); BASOPHILS PERCENT AUTO 0 % (0-2); EOSINOPHILS ABSOLUTE AUTO 0.17 K/mm3 (0.00-0.68); EOSINOPHILS PERCENT AUTO 3 % (0-6); Hematocrit 31.3 % (37.0-53.0); Hemoglobin 9.4 g/dL (13.5-17.5); IMMATURE GRAN ABSOLUTE AUTO 0.03 K/mm3 (0.00-0.10); IMMATURE GRAN PERCENT AUTO 1 % (0-1); LYMPHOCYTES PERCENT AUTO 20 % (21-46); MONOCYTES ABSOLUTE AUTO 0.35 K/mm3 (0.16-1.47); MONOCYTES PERCENT AUTO 6 % (4-13); Mean Corpuscular HGB 24.5 pg (26.0-34.0); Mean Corpuscular Volume 82 fL (80-100); Mean Platelet Volume 11.2 fL (9.1-12.4); NEUTROPHILS ABSOLUTE AUTO 3.96 K/mm3 (1.96-9.15); NEUTROPHILS PERCENT AUTO 70 % (41-73); Platelet Count 183 K/mm3 (150-400); RDW Coefficient Variation 15.9 % (11.7-14.2); RDW Standard Deviation 46.7 fL (35.1-46.3); Red Blood Cell Count 3.84 M/mm3 (4.30-5.90); White Blood Cell Count 5.63 K/mm3 (4.00-11.30)
[2019-08-15 05:50] LABS: Albumin, Blood 2.5 g/dL (3.4-5.0); Albumin/Globulin Ratio 0.6 (0.8-1.8); Bilirubin, Total 0.4 mg/dL (0.1-1.0); Calcium, Blood 8.3 mg/dL (8.5-10.1); Creatinine, Blood 1.84 mg/dL (0.60-1.20); Potassium, Blood 3.4 mmol/L (3.5-5.5); Total Protein, Blood 6.5 g/dL (6.4-8.2)
--- NOTE | 2019-08-15 06:49 | NUR ---
SHIFT SUMMARY NO ACUTE CHANGES. AOX4. VSS. DENIES N/V OR PAIN. REPORTS FEELING SOB, HAS E/U RESPIRATIONS, CONT PULSE OX IS 97-100% ON 2L O2, LUNGS SOUND DIM T/O, HAS OCCASIONAL PRODUCTIVE COUGH. REPORTS FEELING "WEAK". BLE HAVE +2 EDEMA & RE-WRAPPED W/KERLEX. CALL LIGHT IN REACH. WCTM.
[2019-08-15] MEDS ORDERED: GUAI600T33 PO (11:13)
[2019-08-15] MEDS ORDERED: BENZ100A PO (11:13)
[2019-08-15] MEDS ORDERED: AZIT250 PO (11:14)
[2019-08-15] MEDS ORDERED: PRED20 PO (11:15)
--- NOTE | 2019-08-15 14:58 | NUR ---
pt discharged PT AND HIS VERBALIZED UNDERSTANDING OF THE DC INSTRUCTIONS, APPOINTMENT WAS MADE PRIOR TO DISCHARGE, [facility], THE PT WAS TRANSFERED VIA WHEELCHAIR ACCOMPANIED BY THE SURGICAL SERVICES MANAGER AND HIS , PT HAD O2 ON @ 2L/MIN AT THE TIME OF DC
== END 2019-08-15 14:21 | disposition home or self-care (01) | DRG 291 ==
LOC: ER 03:46 → ERHOLD 03:47 → PCU 12:45 → MEDS 08-13 18:11 → ENPENDDIS 08-15 11:32 → MEDS 08-15 14:21
PROVIDERS: Emergency Medicine; Internal Medicine; ADMIT Hospitalist
DX: I13.0 Hypertensive heart and chronic kidney disease with heart failure and stage 1 through stage 4 chronic kidney disease, or unspecified chronic kidney disease (principal); J96.01 Acute respiratory failure with hypoxia; I50.23 Acute on chronic systolic (congestive) heart failure; J84.9 Interstitial pulmonary disease, unspecified; D63.1 Anemia in chronic kidney disease; J44.9 Chronic obstructive pulmonary disease, unspecified; G47.33 Obstructive sleep apnea (adult) (pediatric); I48.0 Paroxysmal atrial fibrillation; E11.22 Type 2 diabetes mellitus with diabetic chronic kidney disease; N18.3 Chronic kidney disease, stage 3 (moderate); I27.21 Secondary pulmonary arterial hypertension; K86.89 Other specified diseases of pancreas; Z66 Do not resuscitate; M35.3 Polymyalgia rheumatica; Z77.090 Contact with and (suspected) exposure to asbestos; E11.51 Type 2 diabetes mellitus with diabetic peripheral angiopathy without gangrene; N40.0 Benign prostatic hyperplasia without lower urinary tract symptoms; G43.909 Migraine, unspecified, not intractable, without status migrainosus; Z79.4 Long term (current) use of insulin; Z87.891 Personal history of nicotine dependence; Z88.8 Allergy status to other drugs, medicaments and biological substances; Z91.038 Other insect allergy status; Z79.01 Long term (current) use of anticoagulants; Z79.899 Other long term (current) drug therapy; I25.2 Old myocardial infarction
CPT/HCPCS: 36415; 36600; 71045; 80048; 80053; 82140; 82728; 82803; 82947; 83540; 83550; 83690; 83880; 84484; 85025; 87804; 93005; 93010; 94640; 94660; 94762; 96372-59; 96374; 96376; 97162; 98960; 99285-25; G0378; J1644; J2405; J2916

== ENCOUNTER 2019-08-24 08:02 | Inpatient (IN) | payer OTHER ==
[~2019-08-24] VITALS: Ht 175.3 cm; Wt 115.2 kg
[~2019-08-24 08:02] MED LIST changes: +AZIT250 PO; +BENZ100A PO
[2019-08-24 08:39] LABS: BASOPHILS ABSOLUTE AUTO 0.04 K/mm3 (0.00-0.23); BASOPHILS PERCENT AUTO 0 % (0-2); EOSINOPHILS ABSOLUTE AUTO 0.02 K/mm3 (0.00-0.68); EOSINOPHILS PERCENT AUTO 0 % (0-6); Hematocrit 33.2 % (37.0-53.0); Hemoglobin 10.1 g/dL (13.5-17.5); IMMATURE GRAN ABSOLUTE AUTO 0.09 K/mm3 (0.00-0.10); IMMATURE GRAN PERCENT AUTO 1 % (0-1); LYMPHOCYTES ABSOLUTE AUTO 0.76 K/mm3 (0.84-5.20); LYMPHOCYTES PERCENT AUTO 5 % (21-46); MONOCYTES ABSOLUTE AUTO 0.49 K/mm3 (0.16-1.47); MONOCYTES PERCENT AUTO 3 % (4-13); Mean Corpuscular HGB 24.8 pg (26.0-34.0); Mean Corpuscular HGB Conc 30.4 g/dL (31.5-36.5); Mean Corpuscular Volume 81 fL (80-100); Mean Platelet Volume 11.2 fL (9.1-12.4); NEUTROPHILS PERCENT AUTO 90 % (41-73); NRBC ABSOLUTE 0.03 K/mm3 (0.00-0.02); NRBC Auto 0.2 /100 WBC (0.0-0.2); Platelet Count 292 K/mm3 (150-400); RDW Coefficient Variation 17.9 % (11.7-14.2); RDW Standard Deviation 52.1 fL (35.1-46.3); Red Blood Cell Count 4.08 M/mm3 (4.30-5.90)
[2019-08-24 09:01] LABS: Albumin, Blood 2.7 g/dL (3.4-5.0); Albumin/Globulin Ratio 0.7 (0.8-1.8); Bilirubin, Total 0.5 mg/dL (0.1-1.0); Bun/Creatinine Ratio 22.7 (12.0-20.0); Creatinine, Blood 2.33 mg/dL (0.60-1.20); Globulin, Blood 4.1 g/dL (2.2-4.0); Potassium, Blood 5.4 mmol/L (3.5-5.5); Total Protein, Blood 6.8 g/dL (6.4-8.2); Troponin I 0.112 ng/mL (0.000-0.040)
[2019-08-24 09:32] LABS: Base Excess Venous 5.4 mmol/L; Bicarbonate Venous 28.7 mmol/L (24.0-30.0); PO2 Venous 132 mmHg (38-42); pH Blood Venous 7.41 (7.34-7.37)
--- NOTE | 2019-08-24 13:45 | NUR ---
PT ARRIVED TO ROOM 341 VIA GURNEY AND ABLE TO TRANSFER WITH ASSIST. ARRIVED ON 3L/M BY HIGH FLOW O2-3L IS HOME TREATMENT WELL. REPORTS HE WANTS TO TAKE A NAP FOR NOW. WITH DO INTAKE LATER.
[2019-08-24 17:44] LABS: Source, Urine Catheter
[2019-08-24 17:47] LABS: Bilirubin, Urine Neg (Neg); Blood, Urine Neg (Neg); Glucose Qualitative, Urine Neg (Neg); Ketones, Urine Neg (Neg); Leukocyte Esterase, Urine Neg (Neg); Nitrite, Urine Neg (Neg); Protein, Urine 4+ (Neg); Urobilinogen, Urine NORM (Normal)
[2019-08-24 17:53] LABS: Appearance, Urine Clear (Clear); Color, Urine Yellow (P-Yellow)
[2019-08-24 17:54] LABS: Bacteria Rare /hpf; Red Blood Cells, Urine 0-2 /hpf (0-2); Squamous Epithelial Cells Rare /hpf (Few); White Blood Cells, Urine 0-2 /hpf (0-5)
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
--- NOTE | 2019-08-24 18:49 | NUR ---
Initial spiritual care note: Mr. Hurley states that he normally doesn't want to talk to "episcopalian types" but that he is "ok" with me sitting down for awhile. He tells me that he feels like he is "here more than he is home" and I affirmed that. He tells me he feels "horrible most of the time, " but he is also "not ready to yet." He wants to live "another 15 years." He may benefit from a clincian conversation about his prognosis and what this entails in [id number] terms. I asked him about his hopes. He is hoping to feel like he did 6 months-1 yr ago. I am unsure this is realistic. Regardless, he spoke at length about his love for his , his property, and being able to work on projects around his home. He was friendly and engaged. He is Moravian in label only. He does not have a congregation or prayer life. He did not want prayer/spiritual direction, but seemed to appreciate being heard and affirmed. Strap Making Machine Operator services will remain available.
[2019-08-24 19:10] LABS: Adenovirus Not Detected (NOT DETECT); Coronavirus 229E Not Detected (NOT DETECT); Coronavirus HKU1 Not Detected (NOT DETECT); Coronavirus NL63 Not Detected (NOT DETECT); Coronavirus OC43 Not Detected (NOT DETECT)
[2019-08-24 19:11] LABS: Bordetella pertussis Not Detected (NOT DETECT); Chlamydophila pneumoniae Not Detected (NOT DETECT); Human Metapneumovirus Not Detected (NOT DETECT); Human Rhinovirus/Enterovirus Not Detected (NOT DETECT); Influenza A Not Detected (NOT DETECT); Influenza A/2009-H1 Not Detected (NOT DETECT); Influenza A/H1 Not Detected (NOT DETECT); Influenza A/H3 Not Detected (NOT DETECT); Influenza B Not Detected (NOT DETECT); Mycoplasma pneumoniae Not Detected (NOT DETECT); Parainfluenza Virus 1 Not Detected (NOT DETECT); Parainfluenza Virus 2 Not Detected (NOT DETECT); Parainfluenza Virus 3 Not Detected (NOT DETECT); Parainfluenza Virus 4 Not Detected (NOT DETECT); Respiratory Syncytial Virus Not Detected (NOT DETECT)
--- NOTE | 2019-08-25 03:36 | NUR ---
HEART RATE SPLITTING MACHINE OPERATOR KIRAN MENDEZ CALLED AND REPORTED THAT PT'S HEART RATE HAS BEEN STEADILY INCREASING THROUGHOUT THE SHIFT. HEART RATE CURRENTLY AFIB 130. NOTIFIED DR. BULLOCK. NEW ORDERS TO GIVE LOPRESSOR 5 MG IV NOW AND IF HEART RATE IS STILL GREATER THAN 110 IN 30 MINUTES TO GIVE ANOTHER 5 MG LOPRESSOR IV. ORDERS PUT IN. AWAITING VERIFICATION BY PHARMACY.
--- NOTE | 2019-08-25 04:29 | NUR ---
SENIOR INTERIOR DESIGNER ENTERED ROOM WITH COOK STATION TO CHECK PT'S VITAL SIGNS AND ADMINISTER ORDERED LOPRESSOR. PT WOULD NOT RESPOND WHEN CALLING OUT HIS NAME OR WITH SHAKING. PT STARING BLANKLY WHEN EYES WERE OPENED. ONLY MOANING. PT NOTED TO BE DIAPHORETIC. THIS NURSE CHECKED PT'S BLOOD SUGAR. LEVEL RETURNED AT 18. QUICKLY PULLED AN AMP OF D50 OUT OF THE PYXIS. WHEN FLUSHING IV TO CHECK PATENCY, IV LEAKED. DECISION WAS MADE TO CALL SENIOR INTERIOR DESIGNER DUE TO NEEDING QUICK IV ACCESS AND PT BEING A DIFFICULT IV START. SEVERAL NURSES AT BEDSIDE, REYNA RN PLACED HONEY AND SUGAR IN PT'S MOUTH IN AN ATTEMPT TO RAISE BLOOD SUGAR. SENIOR INTERIOR DESIGNER TEAM ARRIVED. IV ACCESS GAINED IN LEFT WRIST. 1/2 AMP OF D50 GIVEN. PT WOKE, WAS ABLE TO SPEAK. SPOKE SOFTLY AND REPORTED THAT HE WAS HAVING A DIFFICULT TIME BREATHING. COUGHING UP THICK UP SPUTUM. LUNGS SOUNDED AUDIBLY COARSE. INCREASED OXYGEN TO 4 L FROM BASELINE 3 L. MOI FOOD BEVERAGE SERVER SPOKE WITH DR. BULLOCK, ORDERED TO HAVE PT TRANSFERED TO ICU. THERE IS CONCERN FOR POSSIBLE ASPIRATION. PT SAT AT SIDE OF BED AND REQUESTED TO CALL HIS . PHONE DIALED AND HANDED TO PT. PT'S INFORMED THAT OF SITUATION AND THAT PT WAS BEING MOVED TO ICU 14. REPORT GIVEN TO JOAO FOOD BEVERAGE SERVER. DATA MIGRATION CONSULTANT AND COOK STATION TRANSFERED PT DOWN TO ICU VIA BED.
[2019-08-25 06:21] LABS: Source, Urine Catheter
[2019-08-25 06:26] LABS: Appearance, Urine Clear (Clear); Bilirubin, Urine Neg (Neg); Blood, Urine Neg (Neg); Color, Urine Yellow (P-Yellow); Glucose Qualitative, Urine Neg (Neg); Ketones, Urine Neg (Neg); Leukocyte Esterase, Urine Neg (Neg); Nitrite, Urine Neg (Neg); Protein, Urine 4+ (Neg); Specific Gravity, Urine 1.025 (1.003-1.022); Urobilinogen, Urine NORM (Normal)
[2019-08-25 06:31] LABS: BASOPHILS ABSOLUTE AUTO 0.03 K/mm3 (0.00-0.23); BASOPHILS PERCENT AUTO 0 % (0-2); EOSINOPHILS ABSOLUTE AUTO 0.01 K/mm3 (0.00-0.68); EOSINOPHILS PERCENT AUTO 0 % (0-6); Hematocrit 33.1 % (37.0-53.0); Hemoglobin 10.2 g/dL (13.5-17.5); IMMATURE GRAN ABSOLUTE AUTO 0.06 K/mm3 (0.00-0.10); IMMATURE GRAN PERCENT AUTO 1 % (0-1); LYMPHOCYTES ABSOLUTE AUTO 0.71 K/mm3 (0.84-5.20); LYMPHOCYTES PERCENT AUTO 6 % (21-46); MONOCYTES ABSOLUTE AUTO 0.99 K/mm3 (0.16-1.47); MONOCYTES PERCENT AUTO 9 % (4-13); Mean Corpuscular HGB 24.8 pg (26.0-34.0); Mean Corpuscular HGB Conc 30.8 g/dL (31.5-36.5); Mean Corpuscular Volume 80 fL (80-100); Mean Platelet Volume 11.1 fL (9.1-12.4); NEUTROPHILS ABSOLUTE AUTO 9.57 K/mm3 (1.96-9.15); NEUTROPHILS PERCENT AUTO 84 % (41-73); NRBC ABSOLUTE 0.04 K/mm3 (0.00-0.02); NRBC Auto 0.4 /100 WBC (0.0-0.2); Platelet Count 316 K/mm3 (150-400); RDW Coefficient Variation 18.4 % (11.7-14.2); RDW Standard Deviation 52.7 fL (35.1-46.3); Red Blood Cell Count 4.12 M/mm3 (4.30-5.90); White Blood Cell Count 11.37 K/mm3 (4.00-11.30)
[2019-08-25 06:48] LABS: Bun/Creatinine Ratio 22.5 (12.0-20.0); Calcium, Blood 8.2 mg/dL (8.5-10.1); Creatinine, Blood 2.67 mg/dL (0.60-1.20); Magnesium, Blood 2.3 mg/dL (1.6-2.4); Potassium, Blood 4.6 mmol/L (3.5-5.5); Troponin I 0.107 ng/mL (0.000-0.040)
[2019-08-25 06:48] LABS: Red Blood Cells, Urine 0-2 /hpf (0-2); White Blood Cells, Urine 0-2 /hpf (0-5)
[2019-08-25 06:49] LABS: Amorphous Heavy (0-Heavy)
[2019-08-25 06:50] LABS: Bacteria Rare /hpf; Granular Casts 0-2 /lpf (0); Squamous Epithelial Cells Rare /hpf (Few)
--- NOTE | 2019-08-25 06:52 | NUR ---
PT RECEIVED FROM MEDICAL FLOOR WITH POST RAPID RESPONSE FOR A BLOOD SUGAR OF 18. PT AWAKE ON ARRIVAL. IN A FIB WITH HR IN 100S. LUNG SOUNDS WHEEZY, SPO2 >90% ON 4L NC. PT OCC SLEEPY BUT ABLE TO WAKE. BLOOD SUGAR ON ARRIVAL 21. 1 AMP OF DEXTROSE GIVEN. SUGAR RECHECK AND WENT UP TO 121. POWERGLIDE PLACED IN FAWN. 22G IN LW, PATENT AND SL. DAVENPORT PLACED DRAINING CLEAR YELLOW URINE. WILL PASS REPORT TO ONCOMING RN
--- NOTE | 2019-08-25 10:03 | NUR ---
PT ASLEEP IN BED AT 0715 THIS AM. PT AROUSES TO VOICE BUT FALLS QUICKLY BACK TO SLEEP. BLOOD SUGAR 87 ABOUT 45MIN AFTER [address] ARMSTRONG IN TO SEE PT AT 0730. NEW ORDERS PLACED. PT BOOSTED UP IN BED AT 0800. PT AWAKE AND ABLE TO EAT BREAKFAST TRAY. PT AWAKE AND OX3. PT'S BREATHING SOMEWHAT LABORED W SATS >95% ON 4L O2 VIA N/C. LUNGS TIGHT W INSP/EXP WHEEZES T/O. UDN TX HAD JUST BEEN GIVEN. PT ENCOURAGED TO WEAR BIPAP IF HE BECOMES SOB. BLOOD SUGAR 110 AT 0936 AFTER EATING 50% OF BREAKFAST. PT IS AWAKE NOW VISITING WITH FAMILY AND FRIENDS.
--- NOTE | 2019-08-25 14:47 | NUR ---
REPORT GIVEN TO ONCOMING RN
--- NOTE | 2019-08-25 15:23 | NUR ---
Brief visit this afternoon. Pt about to be transfered to medical floor. Pt reports pain in his legs, neck, and shoulders but does not report intensity. Pt reports having dyspnea prior to this RN's visit but is feeling better now. Pt reports not fulling understanding why he became short of breath leading up to this hospital stay. Brief education given regarding his disease process. Pt reports no other concerns at this time. Spoke with Pt's bedside RN Mamie and discussed case. Palliative Care will remain available.
--- NOTE | 2019-08-25 18:27 | NUR ---
SHIFT SUMMARY ICU TRANSFER THIS AFTERNOON. PATIENT DENIES PAIN AND NAUSEA. PATIENT BECOMES SHORT OF BREATH WITH ANY ACTIVITY INCLUDING EATING. PATIENT OXYGEN SATURATION MAINTING ABOVE 92% ON 3LNC. PATIENT REPORTS HE CANNOT WALK AT THIS TIME AND CAN ONLY PIVOT TRANSFER DUE TO LEG SWELLING/EDEMA. PATIENT HAS DECLINED TO HAVE HIS DAVENPORT REMOVED. CALL LIGHT IN REACH.
--- NOTE | 2019-08-25 20:02 | NUR ---
IV was DC by Rapid response RN not patent around [id number] not doc
--- NOTE | 2019-08-25 20:04 | NUR ---
lt ulnar IV was not patent not present removed after lt upper arm powerglide inserted, removal not documented
--- NOTE | 2019-08-26 05:27 | NUR ---
PT has significant hypoglycemic event 08/25/19 around 4 am with bg 18 and he had several other low bgs in ICU in 30s. Recieved no insulin yesterday bgs 100s to 203 refused lantus insulin 30 units at HS blood glucose was around 100. Drank glycernia x 2 yogurt x 2 applesauce x 2. Sat up in bedside chair for several hours tolerated fair. He also sat on the bed for several hours during 12 hr shift. He was medicated x 1 for gen pain and spasm. He refused to have melo cath dc due to diuresis from chronic pulmonary edema CHF. at baseline 3 l nc and used cpap for several hours of shift.
[2019-08-26 13:31] LABS: BASOPHILS ABSOLUTE AUTO 0.04 K/mm3 (0.00-0.23); BASOPHILS PERCENT AUTO 0 % (0-2); EOSINOPHILS ABSOLUTE AUTO 0.04 K/mm3 (0.00-0.68); EOSINOPHILS PERCENT AUTO 0 % (0-6); Hematocrit 31.1 % (37.0-53.0); Hemoglobin 9.4 g/dL (13.5-17.5); IMMATURE GRAN ABSOLUTE AUTO 0.04 K/mm3 (0.00-0.10); IMMATURE GRAN PERCENT AUTO 0 % (0-1); LYMPHOCYTES PERCENT AUTO 11 % (21-46); MONOCYTES PERCENT AUTO 8 % (4-13); Mean Corpuscular HGB 24.2 pg (26.0-34.0); Mean Corpuscular HGB Conc 30.2 g/dL (31.5-36.5); Mean Corpuscular Volume 80 fL (80-100); Mean Platelet Volume 11.1 fL (9.1-12.4); NEUTROPHILS ABSOLUTE AUTO 7.77 K/mm3 (1.96-9.15); NEUTROPHILS PERCENT AUTO 79 % (41-73); NRBC ABSOLUTE 0.02 K/mm3 (0.00-0.02); NRBC Auto 0.2 /100 WBC (0.0-0.2); Platelet Count 246 K/mm3 (150-400); RDW Coefficient Variation 18.4 % (11.7-14.2); RDW Standard Deviation 52.7 fL (35.1-46.3); Red Blood Cell Count 3.88 M/mm3 (4.30-5.90); White Blood Cell Count 9.79 K/mm3 (4.00-11.30)
[2019-08-26 13:56] LABS: Bun/Creatinine Ratio 23.5 (12.0-20.0); Calcium, Blood 8.3 mg/dL (8.5-10.1); Creatinine, Blood 2.81 mg/dL (0.60-1.20)
--- NOTE | 2019-08-26 17:19 | NUR ---
SHIFT SUMMARY PATIENT MEDICATED X1 FOR PAIN THIS SHIFT. PATIENT REPORTS DYSPNIA WITH ANY ACTIVITY. PATIENT UP ONE ASSIST FROM CHAIR/BED. PATIENT WORKED WITH OT BUT DECLINED PT DUE TO FATIGUE. PATIENT UP IN CHAIR FOR BREAKFAST AND LUNCH. PATIENT NAPPING IN THE AFTERNOON. CALL LIGHT IN REACH.
--- NOTE | 2019-08-26 19:40 | NUR ---
BALDEMAR WAS SITTING UP IN THE CHAIR WATCHING TV AND TALKING ON THE PHONE. TALKED ALL ABOUT HIS BREATHING AND HIS BLOOD SUGAR. STATES HE IS NOT A VERY GOOD BREATHER AT NIGHT AND TO WATCH HIM. STATES HE DOES NOT LIKE TO WEAR THE CONTINUOUS PULSE OX SO IT STAYS SHUT OFF. ENCOURAGED HIM TO WEAR IT. STATES HE HAS POOR CIRCULATION AND IT WILL NOT READ RIGHT. STATES PAIN JUST GOT PAIN MED. ASKING FOR FLEXERIAL WITH NIGHT MEDS. WILL PULL. CALL LIGHT IN REACH. ALLOWED HIM TO FINISH HIS CALL.
[2019-08-27 05:05] LABS: BASOPHILS ABSOLUTE AUTO 0.04 K/mm3 (0.00-0.23); BASOPHILS PERCENT AUTO 1 % (0-2); EOSINOPHILS ABSOLUTE AUTO 0.08 K/mm3 (0.00-0.68); EOSINOPHILS PERCENT AUTO 1 % (0-6); Hematocrit 30.1 % (37.0-53.0); IMMATURE GRAN ABSOLUTE AUTO 0.04 K/mm3 (0.00-0.10); IMMATURE GRAN PERCENT AUTO 1 % (0-1); LYMPHOCYTES ABSOLUTE AUTO 1.25 K/mm3 (0.84-5.20); LYMPHOCYTES PERCENT AUTO 16 % (21-46); MONOCYTES PERCENT AUTO 10 % (4-13); Mean Corpuscular HGB 23.9 pg (26.0-34.0); Mean Corpuscular HGB Conc 29.9 g/dL (31.5-36.5); Mean Corpuscular Volume 80 fL (80-100); Mean Platelet Volume 11.6 fL (9.1-12.4); NEUTROPHILS ABSOLUTE AUTO 5.51 K/mm3 (1.96-9.15); NEUTROPHILS PERCENT AUTO 71 % (41-73); NRBC ABSOLUTE 0.03 K/mm3 (0.00-0.02); NRBC Auto 0.4 /100 WBC (0.0-0.2); Platelet Count 217 K/mm3 (150-400); RDW Coefficient Variation 18.1 % (11.7-14.2); Red Blood Cell Count 3.76 M/mm3 (4.30-5.90); White Blood Cell Count 7.72 K/mm3 (4.00-11.30)
[2019-08-27 05:21] LABS: Bun/Creatinine Ratio 23.8 (12.0-20.0); Calcium, Blood 8.4 mg/dL (8.5-10.1); Creatinine, Blood 2.82 mg/dL (0.60-1.20); Potassium, Blood 4.4 mmol/L (3.5-5.5)
--- NOTE | 2019-08-27 05:49 | NUR ---
SHIFT SUMMARY: BALDEMAR VS HAVE REMAINED WNL. BLOOD SUGAR WAS 229 MEDICATED PER EMAR. EDEMA STILL PRESENT TO BLE AND BUE. REFUSES TO HAVE CATHETER REMOVED AT THIS TIME. CATHETER REMAINED PATENT AND DRAINING. LUNG SOUNDS DIMINISHED, SOB WITH EXERTION. O2 REMAINED 3 LITERS. DID WEAR HIS CPAP MOST OF NIGHT. PAIN REMAINED CONTROLLED WIHT NORCO AND FLEXERAL. REFUSED TO USE CONTINUOUS BIOX SATS REMAINED IN THE 90'S. SKIN STILL FRAGILE WITH SOME DRESSINGS TO ARMS AND LEGS WHICH ARE CDI. NO OTHER ACUTE CHANGES OCCURRED THIS SHIFT.
--- NOTE | 2019-08-27 18:14 | NUR ---
WOUND CARE 1530- TOTAL BED BATH AND LINEN CHANGE. CLEANSED L KNEE WOUND, REDRESSED WITH MEPILEX. APPLIED NEW MEPILEX TO LEFT LATERAL LOWER LEG PINHOLE WOUND THATS DRAINING LG AMOUNTS SS FLUID. APPLIED NEW MEPITEL TO L FOREARM HEALING SCABS WITH LITTLE DRAINAGE.
--- NOTE | 2019-08-27 18:23 | NUR ---
SUMMARY- PT UP IN SITTING UP AT EDGE OF BED FOR MEALS AND UP IN CHAIR FOR LUNCH AND BATH. LUNGS CLEAR DIM THROUGOUT, CX R BASE. PT HAS MOD DYSPNEA WITH EXERTION, PT STATES GREAT IMPROVEMENT FROM DAYS PROVIOUS. 02 3L MISTED, STATES SORE THROAT AND MOUTH. CEPACHOL ORDERED AND HELPFUL. PT TOERATING FOOD AND FLUIDS. WANTS TO CONT WITH DAVENPORT UNTIL DIURESING SLOWS AND DR AGEE AWARE AND OK WITH LEAVING DAVENPORT IN PLACE. PT MEDICATED FOR PAIN IN NECK, BACK AND LEGS AND STATES PAIN CONROLLED TO MANAGABLE LEVEL WHICH IS A 6- WHICH HE IS USED TO. WILL MEDICATE WITH SENOKOT FOR BOWEL STIM PER PT REQ AFTER NO BM FOR 2 DAYS.
--- NOTE | 2019-08-28 03:07 | NUR ---
PHYSICIAN COMMUNICATION CONTACTED STOVE REFINISHER PHYSICIAN AT 0253 TO NOTIFY HIM THAT THE PATIENT WAS REQUESTING SOME SORT OF NASAL SPRAY TO HELP CLEAR OUT THE DRIED UP CONGESTION IN HIS NOSE CAUSING HIM TO BE UNABLE TO BREATHE WELL THROUGH IT. DR BULLOCK SAID TO CONSULT THE PHARMACIST TO SEE WHAT THEY WOULD SUGGEST AND THAT HE WOULD APPROVE WHAT THEY CAME UP WITH. CONTACTED PHARMACIST AT 0306 AND HE SUGGESTED OCEAN NASAL SALINE SPRAY
--- NOTE | 2019-08-28 06:28 | NUR ---
SHIFT SUMMARY PATIENT ALERT AND ORIENTED. WAS UNABLE TO GET A GOOD NIGHTS SLEEP DUE TO DRIED UP NASAL CONGESTION IN HIS NOSE CAUSING HIM TO HAVE DIFFICULTY BREATHING. BREATHING IS BETTER NOW THAT HE HAS HAS OCEAN NASAL SPRAY ADMINISTERED. POWERFLIDE PATENT AND FLUSHED. DAVENPORT CATHETER PATENT AND FLOWING TO GRAVITY. BED IN LOWEST POSITION WITH WHEELS LOCKED. CALL LIGHT AND BELONGINGS WITHIN REACH. REPORT GIVEN TO ONCOMING RN.
[2019-08-28 09:18] LABS: Bun/Creatinine Ratio 23.5 (12.0-20.0); Calcium, Blood 8.3 mg/dL (8.5-10.1); Creatinine, Blood 2.93 mg/dL (0.60-1.20); Potassium, Blood 3.9 mmol/L (3.5-5.5)
--- NOTE | 2019-08-28 19:11 | NUR ---
SHIFT SUMMARY. A&OX4, SBA WITH FWW AND GB TO CHAIR. PT DENIES PAIN, N/V. PT REPORTS SOB WITH EXERTION BUT NOT AT REST. CONTINUES WITH 3L O2 NC, LUNGS CLEAR, PT BREATHES SHALLOW. DAVENPORT REMOVED, PT VOIDED TWICE AFTER REMOVAL. LEGS CONTINUE WITH EDEMA, EDEMA INCREASES SIGNIFICANTLY WITH SITTING. PT ENCOURAGED TO ELEVATE BLE OFTEN POSSIBLE, PT UP TO CHAIR FOR JIMMIE. NO NEW CHANGES OR CONCERNS.
[2019-08-29 04:37] LABS: Hematocrit 31.4 % (37.0-53.0); Hemoglobin 9.4 g/dL (13.5-17.5); Mean Corpuscular HGB Conc 29.9 g/dL (31.5-36.5); Mean Corpuscular Volume 80 fL (80-100); Mean Platelet Volume 11.2 fL (9.1-12.4); NRBC ABSOLUTE 0.02 K/mm3 (0.00-0.02); NRBC Auto 0.3 /100 WBC (0.0-0.2); Platelet Count 187 K/mm3 (150-400); RDW Standard Deviation 51.8 fL (35.1-46.3); Red Blood Cell Count 3.92 M/mm3 (4.30-5.90); White Blood Cell Count 6.93 K/mm3 (4.00-11.30)
[2019-08-29 04:55] LABS: Bun/Creatinine Ratio 25.2 (12.0-20.0); Calcium, Blood 8.5 mg/dL (8.5-10.1); Creatinine, Blood 2.74 mg/dL (0.60-1.20); Potassium, Blood 3.4 mmol/L (3.5-5.5)
--- NOTE | 2019-08-29 05:18 | NUR ---
SHIFT SUMMARY PATIENT ALERT AND ORIENTED. IS CONCERNED WITH THE AMOUNT OF SWELLING THAT HE IS EXPERIENCING. STATED THAT HE FEELS TIGHTENING AND ITCHING OF THE SKIN IN HIS FLANKS AND ABDOMEN NOT RELATED TO HIS ECZEMA. POWERGLIDE PATENT AND FLUSHED. BED IN LOWEST POSITION WITH WHEELS LOCKED. CALL LIGHT AND BELONGINGS WITHIN REACH. REPORT GIVEN TO ONCOMING RN.
--- NOTE | 2019-08-29 13:48 | NUR ---
Patient gvae permission to assist with care on 08/29/2019 for 08/30/2019
--- NOTE | 2019-08-29 17:03 | NUR ---
STUDENT REQUESTED PERMISSION TO CARE FOR PATIENT 08/30/2019 AFTERNOON. PATIENT AGREES.
--- NOTE | 2019-08-29 17:12 | NUR ---
HE IS FRUSTRATED WITH THE RESP. THERAPIST THAT SHE WEANED HIM DOWN FROM 3L TO 2.5L THIS AFTERNOON. HE SAYS HE FEELS SOB EVERY TME HE MOVES AROUND. CONTINUOUS BIOX ON. FLUTTER VALVE AT BEDSIDE. CBG ON THE RISE, OVER 300 FOR DINNER TIME. HE REFUSES TEDS D/T HIS SWOLLEN SENSITIVE LEGS. COLOR ON BOTH SHINS IS BLACK/BROEN. HE HAD AN ASSISTED FALL IN THE ROOM TODAY WITH MYSELF AND HIS PRESENT. ANASARCA PRESENT BUT NO AREAS ARE FIRM YET.
--- NOTE | 2019-08-29 20:05 | NUR ---
review of pt expressed withes and prognsois with physician today. Will try again to review prognosis with patient. consider [facility] palliative consult
[2019-08-30 05:02] LABS: BASOPHILS ABSOLUTE AUTO 0.02 K/mm3 (0.00-0.23); BASOPHILS PERCENT AUTO 0 % (0-2); EOSINOPHILS ABSOLUTE AUTO 0.07 K/mm3 (0.00-0.68); EOSINOPHILS PERCENT AUTO 1 % (0-6); Hematocrit 29.9 % (37.0-53.0); IMMATURE GRAN ABSOLUTE AUTO 0.04 K/mm3 (0.00-0.10); IMMATURE GRAN PERCENT AUTO 1 % (0-1); LYMPHOCYTES ABSOLUTE AUTO 0.65 K/mm3 (0.84-5.20); LYMPHOCYTES PERCENT AUTO 9 % (21-46); MONOCYTES ABSOLUTE AUTO 0.83 K/mm3 (0.16-1.47); MONOCYTES PERCENT AUTO 11 % (4-13); Mean Corpuscular HGB Conc 30.1 g/dL (31.5-36.5); Mean Corpuscular Volume 80 fL (80-100); Mean Platelet Volume 11.6 fL (9.1-12.4); NEUTROPHILS ABSOLUTE AUTO 5.96 K/mm3 (1.96-9.15); NEUTROPHILS PERCENT AUTO 79 % (41-73); Platelet Count 168 K/mm3 (150-400); RDW Coefficient Variation 17.9 % (11.7-14.2); RDW Standard Deviation 51.8 fL (35.1-46.3); Red Blood Cell Count 3.75 M/mm3 (4.30-5.90); White Blood Cell Count 7.57 K/mm3 (4.00-11.30)
--- NOTE | 2019-08-30 05:16 | NUR ---
ARTIFICIAL MARBLE WORKER SUMMARY NO ACUTE CHANGES THIS SHIFT. PT AAOX4 AND PLEASANT. 2 ASSIST WHEN OOB PT HAD A FALL YESTERDAY ON DAY SHIFT. CONTINUES ON O2 3L VIA NC AND HAS USED CPAP WHILE SLEEPING. O2 SATS MAINTAINING MID TO HIGH 90'S ON BASELINE 3L. MEDICATED FOR PAIN X1 WITH NORCO AND FLEXERIL AT HS. CBG 293 AT HS, MEDICATED PER LSS WELL 20 UNITS OF LANTUS. VSS, WILL CONTINUE TO MONITOR.
[2019-08-30 05:18] LABS: Bun/Creatinine Ratio 24.1 (12.0-20.0); Calcium, Blood 8.4 mg/dL (8.5-10.1); Creatinine, Blood 2.7 mg/dL (0.60-1.20); Potassium, Blood 3.5 mmol/L (3.5-5.5)
[2019-08-30 16:33] LABS: Source, Urine Catheter
--- NOTE | 2019-08-30 16:33 | NUR ---
Patient gave me permission to work with him tomorrow 08/30/19.
[2019-08-30 17:04] LABS: Bilirubin, Urine Neg (Neg); Blood, Urine Neg (Neg); Glucose Qualitative, Urine Neg (Neg); Ketones, Urine Neg (Neg); Leukocyte Esterase, Urine Neg (Neg); Nitrite, Urine Neg (Neg); Protein, Urine 3+ (Neg); Urobilinogen, Urine NORM (Normal); pH, Urine 6.5 (5.0-8.0)
[2019-08-30 17:24] LABS: Appearance, Urine Clear (Clear); Color, Urine Yellow (P-Yellow)
[2019-08-30 17:25] LABS: Red Blood Cells, Urine 0-2 /hpf (0-2); Squamous Epithelial Cells Not Seen /hpf (Few); White Blood Cells, Urine 0-2 /hpf (0-5)
[2019-08-30 17:26] LABS: Bacteria Not Seen /hpf
--- NOTE | 2019-08-30 20:07 | NUR ---
HE HAS HAD A FAIR DAY. HIS MAIN PROBLEM WAS URINARY RETENTION. HE HAD 2 BLADDER SCANS FOR POST VOID RESIDUALS. THE LARGEST READING WAS 904 MLS BUT WHEN I PLACED THE DAVENPORT CATHETER AFTER, I DRAINED JUST 550 MLS. HE HAS ANASARCA SO MAYBE THE SCANNER WAS PICKING UP SOME OTHER FLUID ALSO? THE SKIN ON HIS LOWER LEGS IS DISCOLORED, DRY AND CRACKED. HE BLEEDS EASILY IF HE BUMPS HIMSELF. HE WAS UP IN THE CHAIR FOR ALL 3 MEALS. HE IS VERY COMPLIANT NOW WITH THE FALL PRECAUTIONS SINCE HIS FALL YESTERDAY. ADJUSTMENTS MADE TODAY ON HIS DOSES OF CREON AND HIS INSULINS.
[2019-08-31 06:54] LABS: BASOPHILS ABSOLUTE AUTO 0.03 K/mm3 (0.00-0.23); BASOPHILS PERCENT AUTO 1 % (0-2); EOSINOPHILS ABSOLUTE AUTO 0.08 K/mm3 (0.00-0.68); EOSINOPHILS PERCENT AUTO 1 % (0-6); Hemoglobin 9.1 g/dL (13.5-17.5); IMMATURE GRAN ABSOLUTE AUTO 0.03 K/mm3 (0.00-0.10); IMMATURE GRAN PERCENT AUTO 1 % (0-1); LYMPHOCYTES ABSOLUTE AUTO 0.95 K/mm3 (0.84-5.20); LYMPHOCYTES PERCENT AUTO 15 % (21-46); MONOCYTES ABSOLUTE AUTO 0.68 K/mm3 (0.16-1.47); MONOCYTES PERCENT AUTO 11 % (4-13); Mean Corpuscular HGB Conc 30.3 g/dL (31.5-36.5); Mean Corpuscular Volume 79 fL (80-100); Mean Platelet Volume 11.6 fL (9.1-12.4); NEUTROPHILS ABSOLUTE AUTO 4.43 K/mm3 (1.96-9.15); NEUTROPHILS PERCENT AUTO 71 % (41-73); Platelet Count 154 K/mm3 (150-400); RDW Coefficient Variation 18.1 % (11.7-14.2); RDW Standard Deviation 51.5 fL (35.1-46.3); Red Blood Cell Count 3.79 M/mm3 (4.30-5.90)
[2019-08-31 07:01] LABS: Bun/Creatinine Ratio 24.8 (12.0-20.0); Calcium, Blood 8.5 mg/dL (8.5-10.1); Creatinine, Blood 2.62 mg/dL (0.60-1.20); Magnesium, Blood 2.1 mg/dL (1.6-2.4); Phosphorus, Blood 4.5 mg/dL (2.5-4.9); Potassium, Blood 3.6 mmol/L (3.5-5.5)
--- NOTE | 2019-08-31 15:16 | NUR ---
PT QUITE PLEASANT COOP A/O. DENIES PAIN AT THIS TIME. TO ROOM. STATES BREATHING BETTER THAN YEST. H/R REG, NO MURMER NOTED. DISTANT SOUNDS. ON 3L O2. RESP EASY UNLABORED. BT X4 LAST BM YEST PER PT. VOIDS DAVENPORT CATH PLACED YEST. YELLOW FLUID DRAINING. BED I NLOW POSITION,C ALL LITE IN REACH, CALLS APPROP. UP TO CHAIR 3X DAILY. 1-2 ASST FWW. BED IN LOW POSITION, CALL LITE IN REACH, CALLS APPROP
--- NOTE | 2019-08-31 18:24 | NUR ---
PT PLEASANT TODAY. MEDICATED FOR PAIN ONCE. OBTAINED CORTIZONE CREAM FOR LEGS. IN TODAY. LETS ELEVATED ON PILLOWS MUCH ALLOWED. ENCOURAGED T OKEEP OFF BOTTOM WITH PILLOWS AND TURNING. NO OTHER CONCERNS AT THIS TIME. BED IN LOW POSITION, CALL LITE IN REACH, CALLS APPROP
--- NOTE | 2019-09-01 07:26 | NUR ---
NOC SHIFT SUMMARY PLEASANT AND COOPERATIVE WITH CARE. AAOX4. RESP EVEN AND UNLABORED. TURNED THROUGH THE NIGHT TO PREVENT SKIN BREAKDOWN. TREATED FOR PAIN PER EMAR. NO ACUTE CHANGES NOTED THIS NIGHT. PT APPEARS IN NO ACUTE DISTRESS. LARGE BM AT SHIFT CHANGES. REPORT TO ONCOMING RN.
--- NOTE | 2019-09-01 12:30 | NUR ---
BLADDER TRAINING CARRIED OUT THIS AM AND DAVENPORT DISCONTINUED AT THIS TIME. WILL MONITOR FOR VOID
--- NOTE | 2019-09-01 18:49 | NUR ---
PT RESTING IN BED, NO VOID SINCE DAVENPORT REMOVAL AT 1230, DENIES URGE AND DOES NOT WANT TO TRY. PT INFORMED THAT IF HE DOES NOT VOID SOON A CATHETER WILL BE REINSERTED. NO ACUTE CHANGES NOTED THIS SHIFT. WILL CONTINUE TO MONITOR AND REPORT TO ONCOMING RN
[2019-09-02 06:04] LABS: Calcium, Blood 8.2 mg/dL (8.5-10.1); Creatinine, Blood 2.24 mg/dL (0.60-1.20); Potassium, Blood 2.7 mmol/L (3.5-5.5)
--- NOTE | 2019-09-02 07:17 | NUR ---
NOC SHIFT SUMMARY PT PLEASANT AND COOPERATIVE WITH CARE. COMPLIANT WITH 1200ML FLUID RESTRICTION. HE HAS BEEN CONTINENT THROUGH THE NIGHT AND HAS HAD MULTIPLE VOIDS INTO URINAL. EXPRESSED HIS WISH TO HAVE CATHETER REPLACED BECAUSE "IT MAKES THE SWELLING IN MY LEGS GO DOWN FASTER". EXPLAINED THE NEGATIVE POTENTIAL EFFECTS OF CATHETERS TO PT. NO ACUTE CHANGES NOTED THIS NIGHT. REPORT TO ONCOMING RN.
--- NOTE | 2019-09-02 19:41 | NUR ---
SHIFT SUMMARY: NO ACUTE CHANGES TO REPORT THIS SHIFT. PT A&O; CALM AND COOPERATIVE WITH CARE. MEDICATED FOR PAIN PER EMAR. PATIENT IN YELLOW GOWN R/T FALL ON THIS HOSPITAL STAY; PATIENT UP WITH 1-ASSIST TO STAND/PIVOT TO CHAIR.FLUID RESTRICTION - 1200ML/DAY. PT & OT FOLLOWING; DIURESIS CONTINUING. REPORT GIVEN TO ONCOMING RN.
[2019-09-03 06:00] LABS: Bun/Creatinine Ratio 23.6 (12.0-20.0); Calcium, Blood 8.3 mg/dL (8.5-10.1); Creatinine, Blood 2.2 mg/dL (0.60-1.20); Potassium, Blood 3.4 mmol/L (3.5-5.5)
--- NOTE | 2019-09-03 06:18 | NUR ---
Rn shift summary: Patient is alert and oriented. Patient is able to take meds with applesauce. He does struggle with the lg potassium pills. Pt did rest well with his cpap on 3 liters O2. Pt was medicated for pain this am with flexaril for his back pain. Pt does use urinal independantly. Pt is in yellow gown and bed alarm is on. Pt has used call light apropriately.
--- NOTE | 2019-09-03 08:15 | NUR ---
PT QUITE PLEASANT COOP A/O. LIGHT PAIN FEET AND BACK. STATES REALLY DOES NOT GET BETTER THAN 6/10. MEDICATED LATE ON LST SHIFT. WILL FOLLOW. H/R GIANCARLOGMINESH NOTED. NO TELE. LUNGS DIM T/O WITH CRACKLES IN BASES. ON 2.5L O2. RESP EASY, UNLABORED. HAS BEEN TALKING ON PHONE FOR LAST HALF HOUR PLUS. NO SOB REPORTED. BT X4 LAST BM YEST PER PT. VOIDS URINAL. 1-2 ASST TO BSC. BED IN LOW POISTION, CALL LITE IN REACH, CALLS APPROP
--- NOTE | 2019-09-03 14:26 | NUR ---
PT ASKED FOR PAIN MEDS, WHEN WENT TO ROOM, HE FAST ASLEEP. EYES CLOSED. DID NOT AWAKEN TO LIGHT TOUCH ON ARM OR CALLING HIS NAME. ON CPAP. REWP EASY, UNLABORED. DID NOT AWAKEN. WILL FOLLOW.
--- NOTE | 2019-09-03 18:16 | NUR ---
PT PLEASANT TODAY. PAIN MANAGED WITH AVAIL MEDS. IN TO DAY FOR MUCH OF AFTERNOON. PT UP IN CHAIR FOR MEALS. NO OTHER CONCERNS AT THIS TIME. BED IN LOW POSITOIN ,CALL LITE IN REACH, CALLS APPROP
[2019-09-04 07:04] LABS: Calcium, Blood 8.3 mg/dL (8.5-10.1); Creatinine, Blood 2.09 mg/dL (0.60-1.20); Potassium, Blood 3.2 mmol/L (3.5-5.5)
--- NOTE | 2019-09-04 08:30 | NUR ---
PT PLEASANT COOP A/O. SITTING IN CHAIR AT THIS TIME. PAIN 6/10 IN BACK AND FEET. STATES WILL WAIT ON PAIN MEDS THIS IS GOOD AT IT GETS. H/R GIANCARLOGMINESH NOTED. LUNGS DIM T/O WITH CRACKLES BASES. ON 2.5L O2. RESP EASY, UNLABORED. EDEMA WAIST DOWN +3 PITTING. BT X4. LAST BM YEST PT PT. VOIDS PER URINAL. STATES LOW FLOW. STOPS EARLY. DISCUSSED WITH DR ROA. NO NEW ORDERS . 1 ASST TO BSC. BED IN LOW POSITION, CALL LITE IN [facility], CALLS APPROP
--- NOTE | 2019-09-04 11:05 | NUR ---
PT RECEIVED BED BATH. REPLACED ALL WOUND FOAM COVERINGS ON LEGS.
--- NOTE | 2019-09-04 15:00 | NUR ---
BLADDER SCAN PER DR EDWARDS. 415. DAVENPORT CATH PLACED PER DR ROA.
--- NOTE | 2019-09-04 18:35 | NUR ---
PT PLEASANT TODAY. UP IN CHAIR FOR MEALS. PLACED DAVENPORT THIS AFT. PT RONALDO WELL. FAMILY IN TO WATCH SUPER BOWL THIS AFT. NO OTHER CONCERNS AT THIS TIME. BED I LOW POSITION, CALL LITE IN [facility], CLLS APPROP
--- NOTE | 2019-09-05 05:25 | NUR ---
FACTORY LABORER SUMMARY fell asleep early tonight then woke up feeling SOB and wanted to get OOB and sit in his chair. In the process, most of the mepilex dressings came off patient's legs. Still needs to sit at side of bed for at least 4-5 minutes to regain breath before standing and pivoting to bedside chair. Patient taking keeping track of fluid intake very seriously and shows me a list nightly of various amounts taken in during day and his running total. Chronic back pain treated successfully with ordered meds. wounds were all cleansed and mepilex replaced prior to patient going back to sleep
[2019-09-05 11:27] LABS: Calcium, Blood 8.5 mg/dL (8.5-10.1); Creatinine, Blood 2.04 mg/dL (0.60-1.20); Potassium, Blood 3.6 mmol/L (3.5-5.5)
--- NOTE | 2019-09-05 18:10 | NUR ---
SHIFT SUMMARY PT AWAKE DURING SHIFT REPORT, SITTING UP TO CHAIR AT BS WATCHING TV. PT WANTING MORE SODA, BUT CURRENTLY ON [place] RESTRICTION. PT REPORTED THAT HE WILL HAVE TO BE MORE CAREFUL AT HOME NOW TOO, HE IS SUPPOSE TO CONTINUE ON FL RESTRICTION. PER REPORT, PT HAS ALSO BEEN A BRITTLE DIABETIC. PT IS NONCOMPLIANT WITH DIET, EATING A BOX OF PIZZA AFTER EATING BREAKFAST THIS AM. PT'S BRINGING IN FOOD NOT COMPLIANT WITH PT'S DIET AND GIVING IT TO HIM. BLE'S WITH WEEPING EDEMA ON ADMIT; CURRENTLY STILL SEVERE EDEMA, BUT REPORTEDLY MUCH BETTER THAN IT WAS. RASH TO INNER THIGHS AND BUTTOCKS AREA; NEW MEDICATION ORDERED BY DR ROA. DAVENPORT CATH TO GRAVITY; PATENT. PER REPORT, PLACED FOR RETENSION. LABS OBTAINED FROM [facility]. PT BACK TO BED DURING THE DAY, WITH ASSIST FROM . DENIED FURTHER NEEDS. CALL LT IN REACH.
--- NOTE | 2019-09-05 19:53 | NUR ---
PT STATES PAIN IS STILL THERE WHEN REASSESSED AFTER PAIN MED GIVEN EARLIER. RESP EVEN ON 3L VIA NC. NOTED SOB WITH ACTIVITY AND COUGH. PT PRACTICES RESCUE BREATHING APPROPRIATELY. ALERT AND ORIENTED TO OWN ABILITY. PT TOOK MEDS WITH APPLESAUCE. NO SIGNS OF COUGHING OR CHOKING. ASSISTED PT WITH POSITIONING IN BED. WILL MONITOR AND PROVIDE CARE T/O SHIFT. CALL LT IN REACH.
--- NOTE | 2019-09-05 22:06 | NUR ---
PT APPEARS TO BE RESTING COMFORTABLY. RESP EVEN ON 3L. CALL LT IN REACH.
--- NOTE | 2019-09-05 23:38 | NUR ---
PT RESTING QUIETLY WITH BIPAP IN PLACE. CALL LT IN REACH.
--- NOTE | 2019-09-06 02:22 | NUR ---
PT CONTINUES TO REST COMFORTABLY WITH BIPAP IN PLACE. CALL LT IN REACH.
--- NOTE | 2019-09-06 04:18 | NUR ---
SHIFT SUMMARY: NECK AND SHOULDER PAIN RESOLVED. 1-2P ASSIST TO BSC. PT HAD VERY LARGE BM DURING SHIFT. CONTINUES TO STILL BE SOB WITH ACTIVITY AND CONTINUES TO HAVE A NPC. ON 3L VIA NC WHILE AWAKE. 3L BLEED IN WHEN WEARING BIPAP. BLE GROSSLY EDEMATOUS, WEEPING. MULTIPLE BRUISES SCATTERED T/O BODY. DAVENPORT PATENT AND DRAINING YELLOW FLUID. NO ACUTE CHANGES. WILL CONTINUE TO MONITOR AND PROVIDE CARE UNTIL SHIFT REPORT.
[2019-09-06 10:07] LABS: Bun/Creatinine Ratio 23.3 (12.0-20.0); Calcium, Blood 8.5 mg/dL (8.5-10.1); Creatinine, Blood 2.02 mg/dL (0.60-1.20)
[2019-09-06] MEDS ORDERED: BASAGLAR K100 UNIT/1 SC (11:00)
[2019-09-06] MEDS ORDERED: METO2.5 (11:02)
[2019-09-06] MEDS ORDERED: TAMS.4ER PO (11:03)
[2019-09-06] MEDS ORDERED: PACERONE100 M1 (11:04)
[2019-09-06] MEDS ORDERED: FINA5 PO (11:05)
[2019-09-06] MEDS ORDERED: MIRALAX17 GM PO (11:06)
[2019-09-06] MEDS ORDERED: Pedi-Dri 100,0060 GM (11:06)
[2019-09-06] MEDS ORDERED: TERB250 (11:10)
[2019-09-06] MEDS ORDERED: MICONAZOLE 745 GM (11:11)
--- NOTE | 2019-09-06 14:31 | NUR ---
DC REPORT GIVEN TO KETAN OLIVAS AT [facility]
== END 2019-09-06 13:45 | disposition home or self-care (01) | DRG 291 ==
LOC: ER 08:02 → MEDS 11:47 → ICUW 11:47 → MEDS 13:13 → ICUW 08-25 04:23 → MEDS 08-25 15:15
PROVIDERS: Emergency Medicine; Hospitalist; Internal Medicine; Nurse Practitioner Acute Care; Specialist; ADMIT Internal Medicine
DX: I13.0 Hypertensive heart and chronic kidney disease with heart failure and stage 1 through stage 4 chronic kidney disease, or unspecified chronic kidney disease (principal); I50.43 Acute on chronic combined systolic (congestive) and diastolic (congestive) heart failure; J96.21 Acute and chronic respiratory failure with hypoxia; R65.10 Systemic inflammatory response syndrome (SIRS) of non-infectious origin without acute organ dysfunction; J84.9 Interstitial pulmonary disease, unspecified; N17.9 Acute kidney failure, unspecified; K86.3 Pseudocyst of pancreas; G47.33 Obstructive sleep apnea (adult) (pediatric); I48.0 Paroxysmal atrial fibrillation; J44.9 Chronic obstructive pulmonary disease, unspecified; I27.20 Pulmonary hypertension, unspecified; M35.3 Polymyalgia rheumatica; E11.51 Type 2 diabetes mellitus with diabetic peripheral angiopathy without gangrene; Z79.4 Long term (current) use of insulin; E66.01 Morbid (severe) obesity due to excess calories; K86.89 Other specified diseases of pancreas; N18.3 Chronic kidney disease, stage 3 (moderate); Z68.37 Body mass index [BMI] 37.0-37.9, adult; E11.22 Type 2 diabetes mellitus with diabetic chronic kidney disease; D63.1 Anemia in chronic kidney disease; J84.10 Pulmonary fibrosis, unspecified; I08.0 Rheumatic disorders of both mitral and aortic valves; E11.649 Type 2 diabetes mellitus with hypoglycemia without coma; N40.1 Benign prostatic hyperplasia with lower urinary tract symptoms; R33.9 Retention of urine, unspecified; E87.6 Hypokalemia; R21 Rash and other nonspecific skin eruption; E83.42 Hypomagnesemia
CPT/HCPCS: 0099U; 36415; 51702; 51703; 71045; 71046; 76770; 80048; 80053; 81001; 82803; 82947; 83735; 83880; 84100; 84145; 84484; 85025; 85027; 87070; 87205; 93005; 93010; 94640; 94660; 94667; 94760; 94762; 96374; 97110; 97112; 97129; 97162; 97166; 97530; 98960; 99285-25; A9270-GY; C1751; G0515; J1642; J1956